=== PATIENT | male | born 1955 | race Caucasian/White ===

== ENCOUNTER 2016-08-26 05:21 | Emergency (ER) | payer MEDICAID, OTHER ==
[2016-08-26] MEDS ORDERED: NS 0.9% 1000 ML* 1,000 ML IV ONE (05:45)
[2016-08-26 06:19] LABS: Hematocrit 46 % (42-52); Hemoglobin 15.7 g/dl (14.0-18.0); Mean Corpuscular HGB Conc 34 g/dl (31-36); Mean Corpuscular Hemoglobin 32 pg (27-31); Mean Corpuscular Volume 94 fL (80-94); Mean Platelet Volume 8 um3 (7.4-10.4); Red Blood Count 4.93 10^6/ul (4.0-5.4); Red Cell Distribution Width 14 % (10.5-15); White Blood Count 8.8 10^3/ul (3.5-10.8)
[2016-08-26 06:21] LABS: Urine Bilirubin Negative (Negative); Urine Glucose Negative (Negative); Urine Nitrite Negative (Negative)
[2016-08-26 06:35] LABS: Albumin 3.9 g/dL (3.2-5.2); BUN/Creatinine Ratio 16.8 (8-20); Calcium 9.5 mg/dL (8.6-10.3); EGFR African American 75.8 (>60); EGFR Non-African American 58.9 (>60); Globulin 2.9 g/dL (2-4); Potassium 4.2 mmol/L (3.5-5.0); Total Bilirubin 0.5 mg/dL (0.2-1.0); Total Protein 6.8 g/dL (6.4-8.9)
[2016-08-26 06:36] LABS: Troponin I 0.01 ng/mL (<0.04)
--- NOTE | 2016-08-26 07:38 | ED ---
Antolin Becerril SooYoung, scribed for Colton Anne on 08/26/16 at 0536 . GI/ HPI - HPI Summary HPI Summary: A 60 y/o M presents to ED with c/o acute on chronic hernia for the past year, with worsening pain. Associated sx: diaphoresis. He states having baseline SOB and CP due to GERD. He was unable to stand up earlire today because the pain was so bad. Passing gas alleviates some of the pain. He says his last stress test was approx 10 years ago. Pt is a smoker, no EtOH. - History of Current Complaint Chief Complaint: EDGeneral Stated Complaint: HERNIA ON LT SIDE Hx Obtained From: Patient Onset/Duration: Still Present Timing: Constant Current Severity: Mild Pain Intensity: 2 - out of 10 Associated Signs and Symptoms: Positive: Diaphoresis, Other: - neg: SOB. Negative: Chest Pain - Allergy/Home Medications Allergies/Adverse Reactions: Allergies Allergy/AdvReac Type Severity Reaction Status Date / Time No Known Allergies Allergy Verified 10/17/14 10:21 PMH/Surg Hx/FS Hx/Imm Hx Previously Healthy: No Endocrine/Hematology History: Reports: Hx Thyroid Disease - HYPOTHYROIDISM Denies: Hx Diabetes Cardiovascular History: Denies: Hx Angina, Hx Coronary Artery Disease, Hx Hypercholesterolemia, Hx Hypertension, Hx Myocardial Infarction, Hx Valvular Heart Disease Respiratory History: Reports: Hx Chronic Obstructive Pulmonary Disease (COPD), Hx Sleep Apnea - NO MACHINES, Other Respiratory Problems/Disorders - COPD Denies: Hx Asthma GI History: Reports: Hx Gastroesophageal Reflux Disease - ACID REFLUX TAKES ROLAIDS AND TUMS, STATES CANNOT AFFORD PRESCRIPTION MEDS, Hx Hiatal Hernia - REPAIR, Hx Ulcer - esophageal ulcers Musculoskeletal History: Reports: Hx Arthritis - BACK,KNEES, Other Musculoskeletal History - DJD Sensory History: Reports: Hx Contacts or Glasses - GLASSES Denies: Hx Hearing Aid Opthamlomology History: Reports: Hx Contacts or Glasses - GLASSES Neurological History: Reports: Other Neuro Impairments/Disorders - PTSD Psychiatric History: Reports: Hx Anxiety - ON MEDS, Hx Depression - ON MEDS, Hx Post Traumatic Stress Disorder - Surgical History Surgery Procedure, Year, and Place: CLEFT PALATE REPAIR AND TRACHEOSTOMY, ( [facility]). 2009 RIGHT ARM TENDON REPAIR, [facility]. ORIF BROKEN WRIST AND FOUR FINGERS, (8TH GRADE). 2007 LAPAROSCOPIC TO FUNDOPLICATION - ESOPHAGEAL ULCER AND HIATAL HERNIA, [facility]. 2010 RIGHT KNEE ARTHROSCOPIC SURGERY, [facility] Hx Anesthesia Reactions: No Infectious Disease History: No Infectious Disease History: Denies: Hx Hepatitis, Hx Human Immunodeficiency Virus (HIV), Traveled Outside the [place] in Last 30 Days - Family History Known Family History: Negative: Cardiac Disease - Social History Occupation: Unemployed Lives: With Family Alcohol Use: None Substance Use Type: Reports: None Hx Tobacco Use: Yes Smoking Status (MU): Heavy Every Day Tobacco Smoker Type: Cigarettes Amount Used/How Often: 1/2 ppd Length of Time of Smoking/Using Tobacco: 45 YRS Have You Smoked in the Last Year: Yes Review of Systems Positive: Skin Diaphoresis Negative: Chest Pain Negative: Shortness Of Breath Positive: other - hernia pain All Other Systems Reviewed And Are Negative: Yes Physical Exam Triage Information Reviewed: Yes Vital Signs On Initial Exam: Initial Vitals Temp Pulse Resp BP Pulse Ox 97.4 F 80 18 143/71 97 08/26/16 05:24 08/26/16 05:24 08/26/16 05:24 08/26/16 05:24 08/26/16 05:24 Vital Signs Reviewed: Yes Appearance: Positive: Well-Appearing, No Pain Distress Skin: Positive: Warm, Skin Color Reflects Adequate Perfusion, Dry Head/Face: Positive: Normal Head/Face Inspection Eyes: Positive: EOMI, MARC ENT: Positive: Normal ENT inspection Neck: Positive: Supple, Nontender Respiratory/Lung Sounds: Positive: Clear to Auscultation, Breath Sounds Present Cardiovascular: Positive: RRR, Pulses are Symmetrical in both Upper and Lower Extremities Abdomen Description: Positive: Soft, Other: - TENDERNESS IN LLQ Bowel Sounds: Positive: Present Male Genital Exam: Positive: inguinal tenderness - REDUCIBLE INGUINAL HERNIA Musculoskeletal: Positive: Normal, Strength/ROM Intact - 4xFROM Neurological: Positive: Normal, Sensory/Motor Intact, Alert, Oriented to Person Place, Time Diagnostics - Vital Signs Vital Signs Temp Pulse Resp BP Pulse Ox 08/26/16 05:24 97.4 F 80 18 143/71 97 - Laboratory Result Diagrams: 08/26/16 05:45 08/26/16 05:45 Lab Statement: Any lab studies that have been ordered have been reviewed, and results considered in the medical decision making process. - Radiology CXR Xray Interpretation: Positive (See Comments) - COPD Radiology Interpretation Completed By: ED Physician - EKG 1 Cardiac Rate: NL EKG Rhythm: Sinus Rhythm EKG Interpretation: multiple PVCs GIGU Course/Dx - Course Course Of Treatment: MDM: A 60 y/o M presents with worsening pain from chronic inguinal hernia that has been present for approx one year. Pt states having SOB and GERD-related CP as his baseline. Pt is a smoker. EKG is NSR with multiple PVCs. - Diagnoses Provider Diagnoses: Inguinal hernia, Abdominal pain - Physician Notifications Discussed Care Of Patient With: signed out to DR Alvarado to follow ct of a/p. Discharge - Discharge Plan Condition: Stable Disposition: OTHER Discharge Disposition Comment: signed out Dr Alvarado Referrals: Sin Edwards MD [Primary Care Provider] - The documentation as recorded by the Antolin thompson SooYoung accurately reflects the service I personally performed and the decisions made by , Colton Anne.
[2016-08-26] MEDS ORDERED: Iodixanol* (CONTRAST) 320 MG/ML 100 ML SDV IV ONE (07:48)
--- NOTE | 2016-08-26 08:08 | RAD ---
INDICATION: Shortness of breath. COMPARISON: Chest x-ray dated October 17, 2014 TECHNIQUE: PA and lateral views of the chest were obtained. FINDINGS: The heart and mediastinum are normal in size and contour. Similar the previous chest x-ray the lungs appear hyperaerated on the AP view. On the lateral chest x-ray the diaphragm are flattened and there is an increased retrosternal airspace. Otherwise the lungs are grossly clear. There is no evidence of large pleural effusion. Visualized bones are normal for the patient's age. There is no radiographic evidence of free air beneath the diaphragm IMPRESSION: AGAIN SEEN IS THE STIGMATA OF CHRONIC OBSTRUCTIVE PULMONARY DISEASE WITHOUT RADIOGRAPHICALLY APPARENT ACUTE CARDIOPULMONARY ABNORMALITY.
--- NOTE | 2016-08-26 08:57 | RAD ---
CLINICAL HISTORY: Left lower quadrant pain, diverticulitis COMPARISON: None TECHNIQUE: Multiple contiguous axial CT scans were obtained of the abdomen and pelvis after the administration of intravenous contrast. Coronal and sagittal multiplanar reformations are submitted for review. Oral contrast was administered. Delayed images were obtained through the abdomen FINDINGS: LUNG BASES: The lung bases are clear. LIVER: The liver is diffusely low in attenuation compared to the spleen. There are no focal hepatic parenchymal masses. BILE DUCTS: There is no intrahepatic or extrahepatic biliary dilatation. GALLBLADDER: The gallbladder is normal, without pericholecystic inflammatory change. PANCREAS: The pancreas is normal, without mass or ductal dilatation. SPLEEN: Normal in size and appearance. UPPER GI TRACT: Evaluation of the gastrointestinal tract is limited by incomplete gastric distention. There is a small sliding hiatal hernia. SMALL BOWEL AND MESENTERY: The small bowel is normal in contour, course, and caliber. There is no obstruction or dilatation. There is nondilated small bowel noted within a left inguinal hernia sac. COLON: The colon is normal in contour, course, caliber. There is no pericolonic inflammatory change. There is large amount of stool within the proximal colon ADRENALS: Normal bilaterally. KIDNEYS: The kidneys are normal in shape, size, contour, and axis. There is no hydronephrosis or nephrolithiasis. BLADDER: There is intraluminal extension of the prostate gland and bladder. PELVIC ORGANS: As noted above, prostate gland is enlarged with intraluminal extension into the bladder. The seminal vesicles are symmetric. AORTA: The aorta is normal. IVC: Unremarkable LYMPH NODES: There is no lymphadenopathy by size criteria. ABDOMINAL WALL: There is a left inguinal hernia containing nondilated loops of small bowel. There is a lipoma of the right inguinal region. BONES AND SOFT TISSUES: There are mild diffuse degenerative changes. OTHER: None IMPRESSION: 1. LEFT INGUINAL HERNIA CONTAINING NONDILATED LOOPS OF SMALL BOWEL. 2. NO APPRECIABLE DIVERTICULOSIS. 3. FATTY INFILTRATION OF THE LIVER. 4. ENLARGED PROSTATE WITH INTRALUMINAL EXTENSION INTO THE BLADDER.
[2016-08-26 10:07] VITALS: BP 103/61
--- NOTE | 2016-08-26 10:14 | ED ---
I, Ruiz Mendoza, scribed for Cait Alvarado MD on 08/26/16 at 0939 . Progress - Progress Note Progress Note: Signout Pt from Dr. Anne. 60yo male c/o abd pain from his hernia. Pt feels much better since reduction of inguinal hernia ct is neg, pt very aware he needs to contact surgery and or return if his symptoms return - Results/Orders Results/Orders: CXR: COPD. No other acute pathology. CT A/P W: IMPRESSION: 1. LEFT INGUINAL HERNIA CONTAINING NONDILATED LOOPS OF SMALL BOWEL. 2. NO APPRECIABLE DIVERTICULOSIS. 3. FATTY INFILTRATION OF THE LIVER. 4. ENLARGED PROSTATE WITH INTRALUMINAL EXTENSION INTO THE BLADDER. Course/Dx - Diagnoses Provider Diagnoses: Inguinal hernia, Abdominal pain The documentation as recorded by the Reji thompson Benjamin accurately reflects the service I personally performed and the decisions made by me, Cait Alvarado MD.
== END 2016-08-26 10:13 | disposition home or self-care (01) ==
LOC: ED 05:21
DX: K40.90 Unilateral inguinal hernia, without obstruction or gangrene, not specified as recurrent (principal); R10.9 Unspecified abdominal pain; K76.0 Fatty (change of) liver, not elsewhere classified; N40.0 Benign prostatic hyperplasia without lower urinary tract symptoms; E03.9 Hypothyroidism, unspecified; J44.9 Chronic obstructive pulmonary disease, unspecified; G47.30 Sleep apnea, unspecified; K21.9 Gastro-esophageal reflux disease without esophagitis; F41.9 Anxiety disorder, unspecified; F32.9 Major depressive disorder, single episode, unspecified; F17.210 Nicotine dependence, cigarettes, uncomplicated
CPT/HCPCS: 36415; 71020; 74177; 80053; 81003; 83605; 83690; 83880; 84484; 85025; 93005; 99283; Q9967

== ENCOUNTER → 2016-10-19 11:45 | Day surgery (SDC) | payer OTHER ==
[~2016-10-19 11:45] MED LIST: Atracurium* 10 MG/ML 10 ML VIAL ONE; Buffered Lidocaine 1% SYRIN* 3 ML/SYR SYRINGE INTRADERM ONE; Bupivacaine 0.5% W/EPI SDV* 30 ML VIAL ONE; Dexamethasone IV* 4 MG/ML 1 ML (4 MG) IV SLOW PU ONE; Dexamethasone IV* 4 MG/ML 1 ML (4 MG) ONE; EPHEDrine (Pressors)* 50 MG/ML VIAL ONE; Famotidine IV* 10 MG/ML 2 ML (20 mg) IV ONE; Famotidine IV* 10 MG/ML 2 ML (20 mg) ONE; Glycopyrrolate IV* 0.2 MG/ML 1 ML VIAL ONE; KETAMINE HCL* 50 MG/ML 10 ML VIAL ONE; Ketorolac INJ* 30 MG/ML 1 ML VIAL ONE; Levalbuterol 0.63MG/3ML NEB INH ONE; Lidocaine 2% PF* 5 ML VIAL ONE; Midazolam* 1 MG/ML 5 ML VIAL (5 MG) ONE; Morphine INJ* 10 MG/ML 1 ML SYRINGE ONE; Morphine INJ* 2 MG/ML 1 ML SYRINGE IV PRN; Neostigmine Methylsulfate* 2 MG/2 ML SYRINGE ONE; Ondansetron INJ* 2 MG/ML VIAL ONE; PROCHLORPERAZINE INJ 5 MG/ML 2 ML VIAL IV PRN; Propofol* 10 MG/ML 20 ML BTL IV PUSH ONE; ceFAZolin 2 GM PREMIX(*) 2 GM/50 ML BAG IVPB ONE; fentaNYL* 50 MCG/ML 2 ML VIAL (100 MCG VIAL) IV PRN; fentaNYL* 50 MCG/ML 2 ML VIAL (100 MCG VIAL) ONE; oxyCODONE/Acetamin 5/325 MG* TAB ONE; oxyCODONE/Acetamin 5/325 MG* TAB PO PRN
[2016-10-19 17:16] VITALS: BP 101/63
--- NOTE | 2016-10-20 10:57 | OP ---
DATE OF OPERATION: 10/19/16 [facility] DATE OF : 55 SURGEON: Amish Rinaldi MD TEST AUTOMATION ARCHITECT: ALEXANDRO Robertson ANESTHESIOLOGIST: Mark López MD ANESTHESIA: General endotracheal. PRE-OP DIAGNOSIS: Left inguinal hernia. POST-OP DIAGNOSIS: Left inguinal hernia. OPERATIVE PROCEDURE: Laparoscopic preperitoneal repair of left inguinal hernia with mesh. ESTIMATED BLOOD LOSS: Less than 10 mL. IV FLUIDS: Crystalloids. SPECIMEN: None. DRAINS: None. COMPLICATIONS: None. COUNTS: Instrument, needle, and sponge counts correct. DESCRIPTION OF PROCEDURE: The patient was brought to the operating room, placed on the table supine. Sequential compression devices were placed on both lower extremities. General anesthesia was administered. Alves catheter was placed. He was prepped and draped in the usual sterile fashion and received appropriate intravenous antibiotics. A time-out was performed. Local anesthetic was infiltrated at the incision sites. A curvilinear infraumbilical incision was created and the anterior rectus fascia was identified to the left of midline. This was incised transversely and the underlying muscle was retracted laterally. Then a preperitoneal balloon dissector was placed down to the pubic symphysis and then insufflated under direct visualization. The balloon dissector was removed and a 12 mm port was advanced into the space, and carbon dioxide was insufflated to a pressure of 10 mmHg. Under direct visualization, two 5 mm trocars were placed in the lower midline. The dissection proceeded from the midline laterally identifying the pubic tubercle and John's ligament and identifying the inferior epigastric vessels and maintaining these in the anterior position. The dissection proceeded down laterally. There was a large indirect inguinal hernia noted with a sac that was reduced using a [id number] technique. Cord structures were identified and preserved. Several rents were made in the peritoneum, which were subsequently closed with the endoscopic clip hadoop consultant. After complete reduction of the hernia, the sac was noted to have another rent in it. This was twisted upon itself and then ligation of this sac was performed with a 2-0 Polysorb Surgitie. The repair was performed with the Bard 3D Max mesh using a large size patch for the left side. This was positioned into the preperitoneal space and it was positioned to cover the direct, indirect and femoral spaces with the tails of the mesh extending all the way out to the anterior superior iliac spine region. The mesh was secured to the pubic tubercle, the John's ligament, to the anterior abdominal musculature and a tack placed laterally to ____ of the redundant peritoneum to make sure that it stayed above the mesh. Subsequently, the carbon dioxide was released from the space and the peritoneum was noted to have carbon dioxide within it. The peritoneum was entered through the infraumbilical incision using an open technique. After placing a 12 mm port, carbon dioxide was insufflated to a pressure of 15 mmHg. Inspection revealed that the mesh was in good position. There was no exposure of the mesh, and no rents in the peritoneum. The carbon dioxide was released. The port was removed. The umbilical site was closed with 0 Polysorb in a [id number] fashion to approximate both the posterior and anterior rectus sheath. Skin incisions were closed with 4-0 Monocryl in a subcuticular fashion. Steri-Strips were applied. The patient tolerated the procedure well, was extubated, and transferred to recovery room in stable condition. CC: Sin Edwards MD* [id number]/[facility] #: [id number] MTDSophia
== END | disposition home or self-care (01) ==
LOC: OR 11:45
PROVIDERS: ATTEND Surgery
DX: K40.90 Unilateral inguinal hernia, without obstruction or gangrene, not specified as recurrent (principal); F43.10 Post-traumatic stress disorder, unspecified; F17.200 Nicotine dependence, unspecified, uncomplicated; E03.9 Hypothyroidism, unspecified
CPT/HCPCS: A9270-GY; C1776; C1781; J0690; J1100; J1885; J2250; J2270; J2405; J2704; J3010

== ENCOUNTER 2017-03-05 19:26 | Emergency (ER) | payer MEDICAID, OTHER ==
--- NOTE | 2017-03-05 20:33 | UC ---
Respiratory Complaint HPI - HPI Summary HPI Summary: 3 DAYS OF PRODUCTIVE COUGH AND CONGESTION. NO FEVER. GETS FITS OF COUGHING AND THEN FEELS LIGHTHEADED. HAS HAD 2-3 EPISODES WHERE HE COUGHED VERY HARD, FELT LIGHTHEADED AND HIS HANDS STARTED SHAKING AND HE COLLAPSED TO THE GROUND FEELING WEAK. NO LOC. IS A HEAVY SMOKER. - History of Current Complaint Chief Complaint: UCRespiratory Stated Complaint: COUGH,SHAKING FITS Time Seen by Provider: 03/05/17 20:25 Hx Obtained From: Patient, Family/Division Sergeant - Onset/Duration: Gradual Onset, Lasting Days, Still Present Severity Initially: Moderate Severity Currently: Moderate Pain Intensity: 0 Pain Scale Used: 0-10 Numeric Character: Cough: Productive Aggravating Factors: Nothing Alleviating Factors: Nothing Associated Signs And Symptoms: Positive: Nasal Congestion. Negative: Fever, Chills, Pleuritic Chest Pain, Wheezing - Allergies/Home Medications Allergies/Adverse Reactions: Allergies Allergy/AdvReac Type Severity Reaction Status Date / Time No Known Allergies Allergy Verified 03/05/17 20:00 PMH/Surg Hx/FS Hx/Imm Hx Endocrine History: Hypothyroidism Respiratory History: COPD - Surgical History Surgical History: Yes Surgery Procedure, Year, and Place: CLEFT PALATE REPAIR AND TRACHEOSTOMY, ( [facility] ). 2009 RIGHT ARM TENDON REPAIR, [facility] [place]. ORIF BROKEN WRIST AND FOUR FINGERS, (8TH GRADE). 2007 LAPAROSCOPIC TO FUNDOPLICATION - ESOPHAGEAL ULCER AND HIATAL HERNIA, [facility]. 2010 RIGHT KNEE ARTHROSCOPIC SURGERY, [facility]. perforated ear drum as child - Family History Known Family History: Negative: Cardiac Disease, Hypertension - Social History Alcohol Use: None Substance Use Type: None Smoking Status (MU): Heavy Every Day Tobacco Smoker Type: Cigarettes Amount Used/How Often: 1/2 ppd Length of Time of Smoking/Using Tobacco: 45 YRS Have You Smoked in the Last Year: Yes Household Exposure Type: Cigarettes - Immunization History Most Recent Influenza Vaccination: has not received Most Recent Tetanus Shot: received in past Most Recent Pneumonia Vaccination: never received Review of Systems Constitutional: Fatigue ENT: Nasal Discharge Respiratory: Cough Cardiovascular: Negative Gastrointestinal: Negative All Other Systems Reviewed And Are Negative: Yes Physical Exam Triage Information Reviewed: Yes Appearance: Well-Appearing, No Pain Distress, Well-Nourished Vital Signs: Initial Vital Signs Temp 96.9 F 03/05/17 19:57 Pulse 66 03/05/17 19:57 Resp 12 08/05/17 19:57 BP 106/77 03/05/17 19:57 Pulse Ox 97 03/05/17 19:57 Vital Signs Reviewed: Yes Eyes: Positive: Conjunctiva Clear ENT: Positive: Hearing grossly normal, Pharynx normal, Other: - CERUMEN IN EACS Neck: Positive: Supple, Nontender, No Lymphadenopathy Respiratory: Positive: No respiratory distress, No accessory muscle use, Decreased breath sounds. Negative: Wheezing Cardiovascular: Positive: Pulses Normal Abdomen Description: Positive: Soft Musculoskeletal: Positive: No Edema Neurological: Positive: Alert Psychological: Positive: Normal Response To Family, Age Appropriate Behavior Skin: Negative: rashes UC Diagnostic Evaluation - Laboratory O2 Sat by Pulse Oximetry: 97 - Radiology Xray Interpretation: No Acute Changes - Stigmata of obstructive lung disease. No acute pulmonary or cardiac process Radiology Interpretation Completed By: Radiologist Respiratory Course/Dx - Differential Dx/Diagnosis Provider Diagnoses: ACUTE BRONCHITIS Discharge - Discharge Plan Condition: Stable Disposition: HOME Prescriptions: Albuterol HFA INHALER* [Ventolin HFA Inhaler*] 2 puff INH Q4H PRN #1 mdi PRN Reason: Shortness Of Breath Azithromycin [Azithromycin 500 MG TAB] 500 mg PO DAILY #4 tab guaiFENesin/CODIEN 100MG-10MG* [Robitussin AC 100Mg-10Mg*] 5 - 10 ml PO Q6H PRN #150 ml MDD 40ml PRN Reason: Cough predniSONE TAB* [Deltasone TAB*] 50 mg PO DAILY #2 tab Patient Education Materials: Acute Bronchitis (ED) Referrals: Sin Edwards MD [Primary Care Provider] - If Needed Additional Instructions: XRAY DOES NOT SHOW ANYTHING ACUTE BUT DOES SHOW CHANGES CONSISTENT WITH COPD. GIVEN THIS UNDERLYING LUNG DISORDER WE WILL COVER YOU WITH ANTIBIOTICS. TAKE FOR THE FULL COURSE. PREDNISONE AND ALBUTEROL WILL HELP OPEN UP YOUR AIRWAYS. COUGH MEDS NEEDED. SEEK FOLLOW-UP WITH YOUR PCP IF YOU ARE NOT IMPROVING EXPECTED. GO TO THE ER WITHOUT FAIL IF YOU DEVELOP RECURRENT SYMPTOMS OF WEAKNESS AND DIZZINESS.
--- NOTE | 2017-03-05 21:05 | RAD ---
INDICATION: Chest pain when coughing. Shortness of breath. COMPARISON: August 26, 2016 CT abdomen and chest radiograph. TECHNIQUE: Dual energy PA and routine lateral views of the chest were obtained. REPORT: Elevated lung volumes and both diffuse mild prominence of the interstitial markings and patchy rarefaction of the mid to upper lung zone interstitial markings. Bilateral nipple shadows noted. No focal pulmonary lesion, compelling alveolar consolidation, pleural effusion, pneumothorax. The heart, pulmonary vasculature, and mediastinal contours are unremarkable. IMPRESSION: Stigmata of obstructive lung disease. No acute pulmonary or cardiac process evident.
[2017-03-05] MEDS ORDERED: predniSONE TAB* 20 MG PO ONE (21:25)
[2017-03-05] MEDS ORDERED: Azithromycin TAB* 250 MG PO ONE (21:25)
[2017-03-05] MEDS ORDERED: Albuterol HFA INHALER* 8 gm MDI INH ONE (21:25)
[2017-03-05 21:30] VITALS: BP 95/66
== END 2017-03-05 21:55 | disposition home or self-care (01) ==
LOC: UCEAST 19:26
DX: J02.9 Acute pharyngitis, unspecified (principal); Z72.0 Tobacco use
CPT/HCPCS: 71020; 99213; A9270-GY; G0463; J7512

== ENCOUNTER 2017-03-30 17:26 | Emergency (ER) | payer MEDICAID ==
--- NOTE | 2017-03-30 22:13 | RAD ---
Indication: Cough. 2 views of the chest demonstrates hyperinflated lung henry. No mediastinal shift is noted. Lung henry demonstrate no pleural fluid, pneumonia or pneumothorax. No changes noted since March 05, 2017. IMPRESSION: Hyperinflated lung henry with no evidence of active cardiopulmonary disease.
[2017-03-30] MEDS ORDERED: guaiFENesin/CODIEN 100MG-10MG* 5 ML UDC PO ONE (22:31)
--- NOTE | 2017-03-30 22:31 | ED ---
Respiratory - HPI Summary HPI Summary: Patient presents with cough x 3 weeks. He was seen at who prescribed robitussin with codeine, azithromax, prednisone and an albuterol inhaler. He states the cough has not improved. He feels as though it has been getting worse. Patient is a heavy smoker for may years. He notes to a history of COPD , but has never been on medications for SOB or obstructive symptoms. Cough began suddenly 3 weeks ago, has remained constant and is described as "fits." He comes in today because he was having a coughing episode with a "fit" and was unable to drive. After the fit, he notes to shaking and tensing up in the bilateral hands. Upon arrival he requests tums. He denies ETOH use. 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 Denies chest pain or pressure, cough is without production, but notes to some yellow nasal discharge. The symptoms did not improve with the abx or steroid. He has an appt with Dr. Edwards next week. - History of Current Complaint Chief Complaint: Clarenceplmarii Stated Complaint: COUGH,SPASMS Time Seen by Provider: 03/30/17 20:13 Hx Obtained From: Patient Onset/Duration: Sudden Onset Timing: Constant Initial Severity: Severe Current Severity: Severe Pain Intensity: 1 Character: Cough (Nonproductive) Sputum Amount: Scant Sputum Color: Yellow Aggravating Factor(s): URI - Risk Factors Status Asthmaticus Risk Factors: Recent Steroids, Smoking Pulmonary Embolism Risk Factors: Smoking Cardiac Risk Factors: Smoking Pseudomonas Risk Factors: Chronic Lung Disease Tuberculosis Risk Factors: Smoking - Allergy/Home Medications Allergies/Adverse Reactions: Allergies Allergy/AdvReac Type Severity Reaction Status Date / Time No Known Allergies Allergy Verified 03/30/17 17:30 PMH/Surg Hx/FS Hx/Imm Hx Previously Healthy: Yes Endocrine/Hematology History: Reports: Hx Thyroid Disease - uses medication Denies: Hx Diabetes Cardiovascular History: Denies: Hx Angina, Hx Coronary Artery Disease, Hx Hypercholesterolemia, Hx Hypertension, Hx Myocardial Infarction, Hx Valvular Heart Disease Respiratory History: Reports: Hx Chronic Obstructive Pulmonary Disease (COPD), Hx Sleep Apnea - NO MACHINES, Other Respiratory Problems/Disorders - COPD Denies: Hx Asthma GI History: Reports: Hx Gastroesophageal Reflux Disease - uses antacid, Hx Hiatal Hernia - repaired 6-7 years ago?, Hx Ulcer - esophageal Musculoskeletal History: Reports: Hx Arthritis - BACK,KNEES, Other Musculoskeletal History - DJD, bone spurs back Sensory History: Reports: Hx Contacts or Glasses - GLASSES Denies: Hx Hearing Aid Opthamlomology History: Reports: Hx Contacts or Glasses - GLASSES Neurological History: Reports: Other Neuro Impairments/Disorders - PTSD Psychiatric History: Reports: Hx Anxiety - ON MEDS, Hx Depression - ON MEDS, Hx Post Traumatic Stress Disorder - Surgical History Surgery Procedure, Year, and Place: CLEFT PALATE REPAIR AND TRACHEOSTOMY, ( [facility] ). 2010 RIGHT ARM TENDON REPAIR, [facility]. ORIF BROKEN WRIST AND FOUR FINGERS, (8TH GRADE). 2008 LAPAROSCOPIC TO FUNDOPLICATION - ESOPHAGEAL ULCER AND HIATAL HERNIA, [facility]. 2010 RIGHT KNEE ARTHROSCOPIC SURGERY, [facility]. perforated ear drum as child Hx Anesthesia Reactions: No - Immunization History Hx Pertussis Vaccination: No Immunizations Up to Date: Unable to Obtain/Confirm Infectious Disease History: No Infectious Disease History: Denies: Hx Hepatitis, Hx Human Immunodeficiency Virus (HIV), Traveled Outside the [place] in Last 30 Days - Family History Known Family History: Negative: Cardiac Disease, Hypertension - Social History Occupation: Employed Full-time Lives: With Family Alcohol Use: None Hx Substance Use: No Substance Use Type: Reports: None Hx Tobacco Use: Yes Smoking Status (MU): Heavy Every Day Tobacco Smoker Type: Cigarettes Amount Used/How Often: 1/2 ppd Length of Time of Smoking/Using Tobacco: 45 YRS Have You Smoked in the Last Year: Yes Review of Systems Constitutional: Negative Negative: Fever, Chills, Fatigue Eyes: Negative ENT: Negative Cardiovascular: Negative Positive: Cough Positive: Other - GERD symptoms Negative: no symptoms reported, see HPI Musculoskeletal: Negative Neurological: Negative Psychological: Normal All Other Systems Reviewed And Are Negative: Yes Physical Exam Triage Information Reviewed: Yes Vital Signs On Initial Exam: Initial Vitals Temp Pulse Resp BP Pulse Ox 98.1 F 105 20 102/74 93 03/30/17 17:30 03/30/17 17:30 03/30/17 17:30 03/30/17 17:30 03/30/17 17:30 Vital Signs Reviewed: Yes Appearance: Positive: Well-Appearing, Well-Nourished Skin: Positive: Warm, Skin Color Reflects Adequate Perfusion Head/Face: Positive: Normal Head/Face Inspection Eyes: Positive: EOMI, MARC, Conjunctiva Clear Neck: Positive: Supple, No Lymphadenopathy Respiratory/Lung Sounds: Positive: Clear to Auscultation, Breath Sounds Present , Other - lung expansion equal, egophony negative. Negative: Decreased Breath Sounds, Rales, Rhonchi, Stridor, Wheezes, Unable to speak in full sentences Cardiovascular: Positive: RRR, Pulses are Symmetrical in both Upper and Lower Extremities Musculoskeletal: Positive: Normal, Strength/ROM Intact Neurological: Positive: Speech Normal Psychiatric: Positive: Normal AVPU Assessment: Alert Diagnostics - Vital Signs Vital Signs Temp Pulse Resp BP Pulse Ox 03/30/17 20:27 98.2 F 90 16 121/99 95 03/30/17 17:30 98.1 F 105 20 102/74 93 - Laboratory Lab Statement: Any lab studies that have been ordered have been reviewed, and results considered in the medical decision making process. Disposition - Course Course Of Treatment: Patient presents with spastic cough x 3 weeks. Xray negative. Patient was given abx, steroids and cough medication withou improvement of symptoms. Lung expansion equal, egophony negative. He requests tums on arrival to ED and when prompted, he states he "lives on them" - but has never had a PPI before. Treatmetn options discussed and it was explained to the patient his cough could be d/t gerd symptoms he has been having for several years. He stateshe has handfuls of the medication daily. We will trial a PPI Omeprazole and follow up with PCP. I have also given him robitussin and steroids to dry to decrease the inflammation and improve upon his symptoms. He is OK for discharge. - Differential Dx - Cardiopulmonary Differential Diagnoses - Cardiopulmonary: Other - GERD, COUGH, COPD - Diagnoses Provider Diagnoses: Cough Discharge - Discharge Plan Condition: Stable Disposition: HOME Prescriptions: Omeprazole 40 mg PO DAILY #30 cap guaiFENesin/CODIEN 100MG-10MG* [Robitussin AC 100Mg-10Mg*] 10 ml PO BEDTIME PRN #120 udc MDD 10 PRN Reason: Cough predniSONE TAB* [Deltasone TAB*] 50 mg PO DAILY #5 tab Patient Education Materials: COPD (Chronic Obstructive Pulmonary Disease) (ED) , Gastroesophageal Reflux Disease (ED) Forms: *Work Release Referrals: Sin Edwards MD [Primary Care Provider] - Additional Instructions: Take the omeprazole medication daily for 30 days Take the robitussin with codeine at bedtime, but you may also take this during the day for severe symptoms Prednisone has been prescribed to you x 5 days.
[2017-03-30 22:43] VITALS: BP 117/83
== END 2017-03-30 22:44 | disposition home or self-care (01) ==
LOC: ED 17:26
DX: R05 Cough (principal); K21.9 Gastro-esophageal reflux disease without esophagitis; F17.210 Nicotine dependence, cigarettes, uncomplicated
CPT/HCPCS: 71020; 99282; A9270-GY

== ENCOUNTER 2018-03-29 17:48 | Emergency (ER) | payer OTHER ==
--- NOTE | 2018-03-29 18:47 | UC ---
Upper Extremity HPI - HPI Summary HPI Summary: 62-year-old male presents with approximately 3 day history of redness, swelling , and tenderness to his left elbow. Associated with some mild increased warmth. Pain is intermittent typically only being present if he touches or bumps the elbow. Patient reports started after picking at some dry skin on his elbow. Denies fever, chills, decreased range of motion, arthralgia, numbness or tingling distally. - History of Current Complaint Chief Complaint: UCUpperExtremity Stated Complaint: ELBOW COMPLAINT Time Seen by Provider: 03/29/18 18:35 Hx Obtained From: Patient Onset/Duration: Gradual Onset Severity Initially: Mild Severity Currently: None Pain Intensity: 0 Location Of Pain: Is Discrete @ - Left elbow Aggravating Factor(s): Other Alleviating Factor(s): Nothing Associated Signs And Symptoms: Positive: Swelling, Redness. Negative: Bruising , Fever, Weakness, Numbness/Tingling Related History: Dominant Hand Right - Palpation - Risk Factors Non-Orthopedic Risk Factor: Negative Septic Arthritis Risk Factor: Negative - Allergies/Home Medications Allergies/Adverse Reactions: Allergies Allergy/AdvReac Type Severity Reaction Status Date / Time No Known Allergies Allergy Verified 03/29/18 18:00 PMH/Surg Hx/FS Hx/Imm Hx Endocrine History: Thyroid Disease Respiratory History: COPD GI/ History: Gastroesophageal Reflux Psychological History: Depression - Surgical History Surgical History: Yes Surgery Procedure, Year, and Place: CLEFT PALATE REPAIR AND TRACHEOSTOMY, ( [facility]). 2009 RIGHT ARM TENDON REPAIR, [facility]. ORIF BROKEN WRIST AND FOUR FINGERS, (8TH GRADE). 2008 LAPAROSCOPIC TO FUNDOPLICATION - ESOPHAGEAL ULCER AND HIATAL HERNIA, [facility]. 2010 RIGHT KNEE ARTHROSCOPIC SURGERY, [facility]. perforated ear drum as child - Family History Known Family History: Positive: Other Family History: Noncontributory - Social History Occupation: Employed Full-time Lives: With Family Alcohol Use: None Substance Use Type: None Smoking Status (MU): Heavy Every Day Tobacco Smoker Type: Cigarettes Amount Used/How Often: 1/2 ppd Length of Time of Smoking/Using Tobacco: 45 YRS Have You Smoked in the Last Year: Yes Household Exposure Type: Cigarettes - Immunization History Most Recent Influenza Vaccination: has not received Most Recent Tetanus Shot: received in past Most Recent Pneumonia Vaccination: never received Review of Systems Constitutional: Negative Skin: Other - See history of present illness. Respiratory: Negative Cardiovascular: Negative Motor: Negative Neurovascular: Negative Musculoskeletal: Other: - See history of present illness. Is Patient Immunocompromised?: No All Other Systems Reviewed And Are Negative: Yes Physical Exam Triage Information Reviewed: Yes Appearance: Well-Appearing, No Pain Distress, Well-Nourished Vital Signs: Initial Vital Signs Temp 98.5 F 03/29/18 17:57 Pulse 104 03/29/18 17:57 Resp 18 03/29/18 17:57 BP 144/115 03/29/18 17:57 Pulse Ox 95 03/29/18 17:57 Vital Signs Reviewed: Yes Respiratory: Positive: Lungs clear, Normal breath sounds, No respiratory distress Cardiovascular: Positive: RRR, No Murmur, Pulses Normal, Brisk Capillary Refill Musculoskeletal: Positive: Strength Intact, ROM Intact, Other: - Tenderness with erythema and increased warmth over the left olecranon bursa. Neurological: Positive: Alert, Other: - Sensation intact distally. Skin: Positive: Other - Superficial 1.2 cm abrasion with crusting left elbow. No induration, fluctuance, or drainage noted. Procedures - Procedure Summary Procedure Summary: Procedure: Aspiration left olecranon bursa. Procedural note: Informed consent was obtained prior to procedure. The appropriate time out was taken. The area was prepped with Betadine. Local anesthesia was achieved using 0.5 mL of lidocaine 1% without epinephrine. The bursa was accessed using a posterolateral approach using a 20 cc syringe and 18- gauge needle. 12 ml of clear yellow fluid with small amount of blood was obtained and sent for cell count, culture and Gram stain, and crystal evaluation. Estimated blood loss was minimal. A compression dressing with gauze and an Billy wrap was applied. Anticipatory guidance as well as standard post procedure care was explained and return precautions given. Patient tolerated the procedure well without complications and verbalizes understanding of instructions. Upper Extremity Course/Dx - Course Course Of Treatment: 62 year old male with a three-day history of left elbow tenderness, swelling, and erythema consistent with olecranon bursitis. He did have superficial abrasion at site that was caused from picking at dry skin which raises a concern for an infectious bursitis. Aspiration of the bursitis was performed and fluid was sent for analysis. CBC was also obtained. Patient was started on clindamycin 300 mg 3 times a day 10 days and started on a nonsteroidal anti-inflammatory. He is to follow-up with his primary care provider in 2 days for recheck. Warning symptoms requiring immediate medical attention were reviewed with the patient. Patient verbalizes understanding and agrees with plan of care. - Differential Dx/Diagnosis Differential Diagnosis/HQI/PQRI: Bursitis, Septic Arthritis, Other - celluitis Provider Diagnoses: left olecranon bursitis, elevated blood pressure reading Discharge - Sign-Out/Discharge Documenting (check all that apply): Patient Departure All imaging exams completed and their final reports reviewed: No Studies - Discharge Plan Condition: Stable Disposition: HOME Prescriptions: Clindamycin HCl 300 mg PO TID #30 capsule Naproxen [Naproxen 500 mg tab] 500 mg PO Q12HR #30 tablet Patient Education Materials: Elbow Bursitis (ED) Referrals: Sin Edwards MD [Primary Care Provider] - 2 Days (For recheck.) Additional Instructions: With your wound on your elbow I have a concern that your bursitis may be caused by an infection. I am sending the fluid that we drained from the bursa for testing. Start taking clindamycin 300 mg 1 tab every 8 hours for 10 days. Be sure to take this with some food to avoid upset stomach. Take naproxen 1 tablet every 12 hours for the next 7 days. After 7 days you may take every 12 hours as needed. Be sure to take this with food. Keep a gauze dressing over the wound on your elbow. And keep the elbow wrapped with an Billy wrap to help prevent the bursa from swelling again. You tetanus was updated today. Be sure to let your primary care provider know so that your records can be updated Approach to follow-up with your primary care provider in 2 days to be rechecked. Your blood pressure was also elevated on your arrival however it had improved before you are discharged. I would still recommend that you follow-up with your primary care provider to have this rechecked. Seek immediate medical attention in the emergency room if you have increasing pain, swelling of the elbow joint itself, you are unable to move her elbow, numbness or tingling in her hands or fingers, or running any fever greater than 100.5 F. - Billing Disposition and Condition Condition: STABLE Disposition: Home
[2018-03-29] MEDS ORDERED: Lidocaine 1% MPF* 2 ML VIAL INJ ONE (19:08)
[2018-03-29] MEDS ORDERED: Lidocaine 1%* 5 ML VIAL ONE (19:32)
[2018-03-29] MEDS ORDERED: Lidocaine 1%* 5 ML VIAL INJ ONE (19:51)
[2018-03-29] MEDS ORDERED: Tetan/Diph/Pertus SYR(Tdap)* 0.5 ML SYR(BOOSTRIX) use SYR IM ONE (20:03)
[2018-03-29 20:20] VITALS: BP 102/73
[2018-03-30 11:04] LABS: ABS Basophils 0.1 10^3/ul (0-0.2); ABS Eosinophils 0.1 10^3/ul (0-0.6); ABS Monocytes 1.1 10^3/ul (0-0.8); ABS Neutrophils 6.2 10^3/ul (1.5-7.7); ABS Nucleated RBC 0 10^3/ul; Eosinophil % 0.6 % (0-6); Hematocrit 45 % (42-52); Hemoglobin 15.4 g/dl (14.0-18.0); Lymphocyte % 21.5 % (25-47); Mean Corpuscular HGB Conc 34 g/dl (31-36); Mean Corpuscular Hemoglobin 32 pg (27-31); Mean Corpuscular Volume 94 fL (80-94); Mean Platelet Volume 8.6 um3 (7.4-10.4); Nucleated Red Blood Cells % 0.1; Platelet Count 245 10^3/ul (150-450); Red Blood Count 4.81 10^6/ul (4.00-5.40); Red Cell Distribution Width 14 % (10.5-15); White Blood Count 9.4 10^3/ul (3.5-10.8)
--- NOTE | 2018-04-01 13:02 | UC ---
- Progress Note Progress Note: Joint fluid: beverly enciso Patient on clindamycin. CALL PATIENT TO CHECK ON CONDITION. IF ANY TEMP OR INCREASED PAIN OR REDNESS, NEEDS TO GO TO ED. OTHERWISE, WATCH CLOSELY AND CONTINUE ANTIBIOTIC. RE CHECK FOR FULL RESOLUTION NEXT WEEK. CALL US FOR ANY QUESTIONS OR CONCERNS. Discharge - Sign-Out/Discharge Documenting (check all that apply): Post-Discharge Follow Up All imaging exams completed and their final reports reviewed: No Studies - Discharge Plan Condition: Stable Disposition: HOME Prescriptions: Clindamycin HCl 300 mg PO TID #30 capsule Naproxen [Naproxen 500 mg tab] 500 mg PO Q12HR #30 tablet Patient Education Materials: Elbow Bursitis (ED) Referrals: Sin Edwards MD [Primary Care Provider] - 2 Days (For recheck.) Additional Instructions: With your wound on your elbow I have a concern that your bursitis may be caused by an infection. I am sending the fluid that we drained from the bursa for testing. Start taking clindamycin 300 mg 1 tab every 8 hours for 10 days. Be sure to take this with some food to avoid upset stomach. Take naproxen 1 tablet every 12 hours for the next 7 days. After 7 days you may take every 12 hours as needed. Be sure to take this with food. Keep a gauze dressing over the wound on your elbow. And keep the elbow wrapped with an Billy wrap to help prevent the bursa from swelling again. You tetanus was updated today. Be sure to let your primary care provider know so that your records can be updated Approach to follow-up with your primary care provider in 2 days to be rechecked. Your blood pressure was also elevated on your arrival however it had improved before you are discharged. I would still recommend that you follow-up with your primary care provider to have this rechecked. Seek immediate medical attention in the emergency room if you have increasing pain, swelling of the elbow joint itself, you are unable to move her elbow, numbness or tingling in her hands or fingers, or running any fever greater than 100.5 F. - Billing Disposition and Condition Condition: STABLE Disposition: Home
== END 2018-03-29 20:16 | disposition home or self-care (01) ==
LOC: UCEAST 17:48
DX: M70.22 Olecranon bursitis, left elbow (principal); Y93.9 Activity, unspecified; R03.0 Elevated blood-pressure reading, without diagnosis of hypertension; F17.210 Nicotine dependence, cigarettes, uncomplicated
CPT/HCPCS: 20605; 36415; 85025; 87070; 87077; 87186; 87205; 87640; 87641; 89051; 89060; 90471; 90715; 99212; G0463

== ENCOUNTER 2018-09-08 14:55 | Inpatient (IN) | payer OTHER ==
[2018-09-08] MEDS ORDERED: Famotidine IV* 10 MG/ML 2 ML (20 mg) ONE ×2 (15:08)
[2018-09-08] MEDS ORDERED: EPINEPHRINE 1 MG/ML 1 ML VIAL ONE (15:08)
[2018-09-08] MEDS ORDERED: methylPREDNISolone 125 MG* 2 ML VIAL ONE (15:08)
[2018-09-08] MEDS ORDERED: diPHENhydraMINE IV* 50 MG/ML 1 ml VIAL (BENADRYL) ONE (15:08)
[2018-09-08] MEDS ORDERED: NS 0.9% 1000 ML** 1,000 ML IV.FLUID IV ONE (15:12)
[2018-09-08] MEDS ORDERED: Clindamycin 600 MG/D5W BAG(*) 600 MG/50 ML BAG IV ONE (15:17)
--- NOTE | 2018-09-08 15:18 | ED ---
Allergic Reaction/Systemic - HPI Summary HPI Summary: A 63 y/o male accompanied by his presents to [facility] with a chief complaint of a possible allergic reaction since 14:30. The patient is complaining of throat tightness. The patient reports that his eyebrows and feet itch. He does not take BP medication but he takes thyroid medication. He denies being on new medication. He denies fever, chills, erythema (eyes), sore throat, chest pain, cough, abdominal pain, vomiting, nausea, dysuria, hematuria, myalgia, edema, rash and dizziness. His O2 Sat in the room is 92. He reports that he had a tracheostomy done when he was 9 months old. - History of Current Complaint Chief Complaint: EDAllergicReaction Time Seen by Provider: 09/08/18 15:00 Hx Obtained From: Patient, Family/Jet Operator - Onset/Duration: Sudden Onset, Started minutes ago, Still Present Timing: Constant, Lasting Minutes Severity Initially: Severe Severity Currently: Severe Aggravating Factor(s): Nothing Alleviating Factor(s): Nothing Associated Signs And Symptoms: Positive: Throat Tightening. Negative: Abdominal Pain, Chest Pain, Nausea, Vomiting - Allergies/Home Medications Allergies/Adverse Reactions: Allergies Allergy/AdvReac Type Severity Reaction Status Date / Time No Known Allergies Allergy Verified 03/29/18 18:00 Home Medications: Home Medications Calcium Carb/Magnesium Hydrox [Rolaids Chewable Tablet] 1 chw PO TID PRN [History Confirmed 09/08/18] Ibuprofen TAB* [Advil TAB*] 200 mg PO Q6H PRN 09/08/18 [History Confirmed ] Omeprazole (Nf) [Prilosec (NF)] 40 mg PO DAILY 09/08/18 [History Confirmed 09/08] PARoxetine HCL TAB* [Paxil TAB*] 40 mg PO DAILY 09/08/18 [History Confirmed 03/19] PMH/Surg Hx/FS Hx/Imm Hx Endocrine/Hematology History: Reports: Hx Thyroid Disease - uses medication Denies: Hx Diabetes Cardiovascular History: Denies: Hx Angina, Hx Coronary Artery Disease, Hx Hypercholesterolemia, Hx Hypertension, Hx Myocardial Infarction, Hx Valvular Heart Disease Respiratory History: Reports: Hx Chronic Obstructive Pulmonary Disease (COPD), Hx Sleep Apnea - NO MACHINES, Other Respiratory Problems/Disorders - COPD Denies: Hx Asthma GI History: Reports: Hx Gastroesophageal Reflux Disease - uses antacid, Hx Hiatal Hernia - repaired 6-7 years ago?, Hx Ulcer - esophageal Musculoskeletal History: Reports: Hx Arthritis - BACK,KNEES, Other Musculoskeletal History - DJD, bone spurs back Sensory History: Reports: Hx Contacts or Glasses - GLASSES Denies: Hx Hearing Aid Opthamlomology History: Reports: Hx Contacts or Glasses - GLASSES Neurological History: Reports: Other Neuro Impairments/Disorders - PTSD Psychiatric History: Reports: Hx Anxiety - ON MEDS, Hx Depression - ON MEDS, Hx Post Traumatic Stress Disorder - Surgical History Surgery Procedure, Year, and Place: CLEFT PALATE REPAIR AND TRACHEOSTOMY, ( [facility] ). 2009 RIGHT ARM TENDON REPAIR, [facility]. ORIF BROKEN WRIST AND FOUR FINGERS, (8TH GRADE). 2007 LAPAROSCOPIC TO FUNDOPLICATION - ESOPHAGEAL ULCER AND HIATAL HERNIA, [facility]. 2010 RIGHT KNEE ARTHROSCOPIC SURGERY, [facility]. perforated ear drum as child Hx Anesthesia Reactions: No Infectious Disease History: Denies: Hx Hepatitis, Hx Human Immunodeficiency Virus (HIV) - Family History Known Family History: Negative: Cardiac Disease, Hypertension - Social History Alcohol Use: None Hx Substance Use: No Substance Use Type: Reports: None Hx Tobacco Use: Yes Smoking Status (MU): Heavy Every Day Tobacco Smoker Type: Cigarettes Amount Used/How Often: 1/2 ppd Length of Time of Smoking/Using Tobacco: 45 YRS Have You Smoked in the Last Year: Yes Review of Systems Negative: Fever, Chills Negative: Erythema ENT: Other - positive: throat tightness Negative: Sore Throat Negative: Chest Pain Positive: Shortness Of Breath. Negative: Cough Negative: Abdominal Pain, Vomiting, Nausea Negative: dysuria, hematuria Negative: Myalgia, Edema Negative: Rash Neurological: Negative - dizziness All Other Systems Reviewed And Are Negative: Yes Physical Exam - Summary Physical Exam Summary: Constitutional: Well-developed, Well-nourished, Alert. (-) Distressed Skin: Warm, Dry HENT: Normocephalic; Atraumatic, Sublingual Edema, consider Teo's angina Eyes: Conjunctiva normal Neck: Musculoskeletal ROM normal neck. (-) JVD, (-) Stridor, (-) Tracheal deviation Cardio: Rhythm regular, rate normal, Heart sounds normal; Intact distal pulses; The pedal pulses are 2+ and symmetric. Radial pulses are 2+ and symmetric. (-) Murmur Pulmonary/Chest wall: Effort normal. (-) Respiratory distress, (-) Wheezes, (-) Rales Abd: Soft, (-) epigastric tenderness, (-) Distension, (-) Guarding, (-) Rebound Musculoskeletal: (-) Edema Lymph: (-) Cervical adenopathy Neuro: Alert, Oriented x3 Psych: Mood and affect Normal Triage Information Reviewed: Yes Vital Signs Reviewed: Yes Diagnostics - Laboratory Result Diagrams: 09/10/18 06:06 09/10/18 06:06 Lab Statement: Any lab studies that have been ordered have been reviewed, and results considered in the medical decision making process. - Radiology CXR Radiology Interpretation Completed By: Radiologist Summary of Radiographic Findings: HYPERINFLATED LUNG BREWER WITHOUT EVIDENCE OF PNEUMONIA. ED physician has reviewed this imaging report. Re-Evaluation - Re-Evaluation First Eval Re-Evaluation Time: 16:33 Change: Improved Comment: voice more clear, no Stridor, he feels like he has improved Allergic Reaction Course/Dx - Course Course Of Treatment: A 63 y/o male accompanied by his presents to [facility] with a chief complaint of a possible allergic reaction since 14:30. The patient is complaining of throat tightness. The patient reports that his eyebrows and feet itch. He does not take BP medication but he takes thyroid medication. He denies being on new medication. He denies fever, chills, erythema (eyes), sore throat, chest pain, cough, abdominal pain, vomiting, nausea, dysuria, hematuria , myalgia, edema, rash and dizziness. His O2 Sat in the room is 92. He reports that he had a tracheostomy done when he was 9 months old. The physical exam revealed Sublingual Edema, consider Teo's angina. Discussed case with Dr. Cerda, general labor forklift operator, who will accept the patient for admission to the ICU. We discussed preemptive intubation vs. close airway monitoring in the ICU. I did relay concerns for CT imaging if the airway was not secured. He also understands the possibility of Ludwigs angina. I informed him that I will consult with the ENT on this patient. Discussed case with Dr. Arensa, ENT, who will evaluate the patient. In the ED course the patient was given Cleocin 600mg IV, Pepcid 20mg IV, Solu-Medrol 40mg IV and Benadryl 25 mg IV. CXR impression: HYPERINFLATED LUNG BREWER WITHOUT EVIDENCE OF PNEUMONIA. Lab results obtained. Lactic acid at 16:11 was 3.0. This patient will be admitted to the ICU. He is agreeable with this plan. - Diagnoses Provider Diagnoses: Angioedema - Provider Notifications Discussed Care Of Patient With: Keith Prashant Time Discussed With Above Provider: 15:12 Instructed by Provider To: MD Will See In ED - We discussed preemptive intubation vs. close airway monitoring in the ICU. I did relay concerns for CT imaging if the airway was not secured. He also understands the possibility of Ludwigs angina. I informed him that I will consult with the ENT on this patient. - Critical Care Time Critical Care Time: 30-74 min - 60 mins Discharge - Sign-Out/Discharge Documenting (check all that apply): Patient Departure - admit Patient Received Moderate/Deep Sedation with Procedure: No - Discharge Plan Condition: Good Disposition: ADMITTED TO [facility] - Billing Disposition and Condition Condition: GOOD Disposition: Admitted to [facility] - Attestation Statements Document Initiated by Scribe: Yes Documenting Scribe: Arron Waldron Provider For Whom Scribe is Documenting (Include Credential): Hermes Peoples MD Scribe Attestation: I, Arron Waldron, scribed for Hermes Peoples MD on 09/11/18 at 0741. Scribe Documentation Reviewed: Yes Provider Attestation: The documentation as recorded by the Arron thompson accurately reflects the service I personally performed and the decisions made by me, Hermes Peoples MD Status of Scribe Document: Viewed Consult Consult: At 13:50 - Discussed case with Dr. Arenas, ENT, who will evaluate the patient.
[2018-09-08] MEDS ORDERED: NS 0.9% 1000 ML** 1,000 ML IV ONE (15:30)
[2018-09-08] MEDS ORDERED: diPHENhydraMINE IV* 50 MG/ML 1 ml VIAL (BENADRYL) SLOW PUSH PRN (15:51)
--- NOTE | 2018-09-08 16:09 | HP ---
H&P (Free Text) History and Physical: History and Physical -- Critical Care Limitations in history/physical: none HPI: 63y M w/pmhx of GERD, PTSD, hypothyroidism; presents to ER after some itching in throat this morning. Then he noted tongue swelling 1 hours prior to ER arrival. brought him in . No fever/chills. no new medications. no antihypertensives. no bites/wounds. no new food taken in. no prior history of swelling. no infection in mouth or teeth recently. He states he can swallow, has no trouble breathing. no sob/cp. states some change in voice noted+. in ER, given SQ epi, IV steroids, IV pepcid, clindamycin x1; for 4 FFP now ROS: negative except for pertinent positives mentioned above. 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; + Allergies: Allergies Allergy/AdvReac Type Severity Reaction Status Date / Time No Known Allergies Allergy Verified 03/29/18 18:00 Home Medications: Levothyroxine TAB* [Synthroid 125 MCG TAB*] 250 mcg PO QAM 10/17/14 [History Confirmed 09/08/18] Calcium Carb/Magnesium Hydrox [Rolaids 550-110 mg] 1 chw PO TID PRN 09/08/18 [ History Confirmed 09/08/18] Ibuprofen TAB* [Advil TAB*] 200 mg PO Q6H PRN 09/08/18 [History Confirmed ] Omeprazole (Nf) [Prilosec (NF)] 40 mg PO DAILY 09/08/18 [History Confirmed 09/08] PARoxetine HCL TAB* [Paxil TAB*] 40 mg PO DAILY 09/08/18 [History Confirmed 03/19] Tele: NSR Vitals: Vital Signs Temp 98.6 F 09/08/18 15:36 Pulse 82 09/08/18 15:36 Resp 26 09/08/18 15:36 BP 121/78 09/08/18 15:36 Pulse Ox 90 09/08/18 15:36 Intake & Output 02/07/19 02/08/19 02/08/19 18:59 06:59 18:59 Weight 90.718 kg O2/Vent: RA Infusions: heplock Current Medications: Diphenhydramine HCl (Benadryl Iv*) 25 mg SLOW PUSH Q6H PRN PRN Reason: ITCHING Famotidine (Pepcid Iv*) 20 mg IV SLOW PU BID SYBIL Methylprednisolone Sodium Succinate (Solu-Medrol 40 Mg) 40 mg IV Q8H SYBIL Physical Exam: General: awake, alert, no distress, no diaphoresis Head: normocephalic, atraumatic HEENT: no pallor, no icterus, moist mucous membranes; poor dentition+ Neck: soft, supple, some mild swelling under the jaw/nontender; no stridor; tongue and sublingual area mildly swollen+ CVS: normal rate, regular, no murmur Resp: bilateral air entry, no rhales/wheeze/rhonchi, no acc muscle use Abdomen: soft, nontender, nondistended, bowel sounds present Ext: pulses+, warm, no edema Skin: intact Neuro: awake, alert, orientedx3, moving all extremities, no gross focal deficit Labs: pending Imaging: - Assessment: 63y M w/pmhx of GERD, PTSD, hypothyroidism; presents to ER after some itching in throat this morning. Then he noted tongue swelling 1 hours prior to ER arrival. brought him in . No fever/chills. no new medications. no antihypertensives. no bites/wounds. no new food taken in. no prior history of swelling. no infection in mouth or teeth recently. He states he can swallow , has no trouble breathing. no sob/cp. states some change in voice noted+. -Suspected Angioedema, unclear etiology -r/o ludwigs Hypothyroidism PTSD Plan: Neuro- stable, delirium prec. asp prec. restart paroxetine was able to take po. CVS- BP stable. HR stable. Resp- tongue and sublingual area swollen. no resp distress, minimal voice change. dsicussed with ER, ENT consult for evaluation of post pharynx. Nontoxic so not clearly septic or infection based swelling. -cont steroids/h2b/benadryl IV -discussed with patinet about possible intubation if worsening distress, he understood -airway monitoring in ICU ID- afebrile. low suspicion for infection. ENT eval. s/p clindamycin x1 now GI- NPO. H2b proph cont synthroid once able to swollow. DVT prophylaxis: SCDs GI prophylaxis: h2b Alves Cathetor: no Disposition: ADmit to ICU for Airway monitoring for angioedema Patient Clinical Status: guarded Code Status: full code expected LOS >2 midnights Total Critical Care time is 35 minutes, excluding procedures/teaching Keith Cerda MD Insect Control Inspector (Electronically Signed)
[2018-09-08 16:19] LABS: ABS Basophils 0 10^3/ul (0-0.2); ABS Eosinophils 0.1 10^3/ul (0-0.6); ABS Lymphocytes 3.2 10^3/ul (1.0-4.8); ABS Monocytes 0.8 10^3/ul (0-0.8); ABS Neutrophils 6.3 10^3/ul (1.5-7.7); ABS Nucleated RBC 0 10^3/ul; Eosinophil % 0.5 %; Hematocrit 49 % (42-52); Hemoglobin 16.3 g/dl (14.0-18.0); Lymphocyte % 30.5 %; Mean Corpuscular HGB Conc 34 g/dl (31-36); Mean Corpuscular Hemoglobin 32 pg (27-31); Mean Corpuscular Volume 94 fL (80-94); Nucleated Red Blood Cells % 0; Platelet Count 308 10^3/ul (150-450); Red Blood Count 5.19 10^6/ul (4.00-5.40); Red Cell Distribution Width 14 % (10.5-15); White Blood Count 10.5 10^3/ul (3.5-10.8)
[2018-09-08 16:31] LABS: Activated Partial Thrombo Time 32.2 seconds (26.0-36.3)
[2018-09-08] MEDS: methylPREDNISolone SOD 40 MG* 1 ML VIAL IV SCH (16:31)
[2018-09-08 16:36] LABS: Albumin 4.1 g/dL (3.2-5.2); Albumin/Globulin Ratio 1.5 (1-3); BUN/Creatinine Ratio 18.2 (8-20); Calcium 9.2 mg/dL (8.6-10.3); EGFR African American 92.4 (>60); EGFR Non-African American 76.3 (>60); Globulin 2.8 g/dL (2-4); Potassium 3.6 mmol/L (3.5-5.0); Total Bilirubin 0.5 mg/dL (0.2-1.0); Total Protein 6.9 g/dL (6.4-8.9)
[2018-09-08 17:18] LABS: Urine Appearance Cloudy; Urine Bacteria 1+ (Absent); Urine Bilirubin Negative (Negative); Urine Blood 1+ (Negative); Urine Color Yellow; Urine Glucose Negative (Negative); Urine Ketones Negative (Negative); Urine Nitrite Negative (Negative); Urine Protein Negative (Negative); Urine Red Blood Cell 1+(3-5/hpf) (Absent); Urine Specific Gravity 1.006 (1.010-1.030); Urine Squamous Epithelial Cell Present (Absent); Urine Urobilinogen Negative (Negative); Urine White Blood Cell 3+(>20/hpf) (Absent)
[2018-09-08] MEDS: Famotidine IV* 10 MG/ML 2 ML (20 mg) IV SLOW PU SCH (20:31)
[2018-09-08] MEDS: NS 0.9% 1000 ML** 1,000 ML IV SCH (20:39)
[2018-09-08] MEDS: Clindamycin 600 MG/D5W BAG(*) 600 MG/50 ML BAG IV SCH (23:10)
[2018-09-09] MEDS: methylPREDNISolone SOD 40 MG* 1 ML VIAL IV SCH ×3 (00:17→19:44)
[2018-09-09] MEDS: NS 0.9% 1000 ML** 1,000 ML IV SCH (05:59)
[2018-09-09 06:13] LABS: Hematocrit 44 % (42-52); Hemoglobin 15.1 g/dl (14.0-18.0); Mean Corpuscular HGB Conc 34 g/dl (31-36); Mean Corpuscular Hemoglobin 32 pg (27-31); Mean Corpuscular Volume 92 fL (80-94); Mean Platelet Volume 8.2 fL (7.4-10.4); Platelet Count 250 10^3/ul (150-450); Red Blood Count 4.76 10^6/ul (4.00-5.40); Red Cell Distribution Width 14 % (10.5-15); White Blood Count 8.1 10^3/ul (3.5-10.8)
[2018-09-09 06:20] LABS: BUN/Creatinine Ratio 25.9 (8-20); Calcium 8.6 mg/dL (8.6-10.3); EGFR African American 110.2 (>60); Potassium 4.5 mmol/L (3.5-5.0)
[2018-09-09] MEDS: Clindamycin 600 MG/D5W BAG(*) 600 MG/50 ML BAG IV SCH ×3 (07:43→23:26)
[2018-09-09] MEDS: Famotidine IV* 10 MG/ML 2 ML (20 mg) IV SLOW PU SCH (10:28)
[2018-09-09] MEDS ORDERED: diPHENhydraMINE PO* 25 MG PO PRN (10:39)
--- NOTE | 2018-09-09 10:49 | PN ---
Progress Note - Progress Note Date of Service: 09/09/18 Note: Progress Note -- Critical Care 24 hour events: -no events overnight -on RA, no distress, speech improved, no muffling, hungry, no difficulty swallowing -afebrile Tele: NSR Vitals: Vital Signs Temp 97.5 F 09/09/18 08:00 Pulse 83 09/09/18 10:01 Resp 17 09/09/18 10:01 BP 96/70 09/09/18 10:01 Pulse Ox 94 09/09/18 10:01 Intake & Output 09/08/18 09/09/18 09/09/18 18:59 06:59 18:59 Intake Total 1050 1030 50 Balance 1050 1030 50 Weight 95.2 kg 94.7 kg Intake: IV Fluids 1050 980 NS (0.9%) 980 IVPB 50 ABX - CLINDAMYCIN 50 Oral 0 50 Other: Estimated Void Medium Medium # Voids 1 2 Infusions: NS 100cc/hr Current Medications: Diphenhydramine HCl (Benadryl Po*) 25 mg PO Q12H PRN PRN Reason: Allergy Symptoms Famotidine (Pepcid Tab*) 20 mg PO BID REPLACED BY [facility] Clindamycin HCl/Dextrose (Cleocin 600 Mg/50 Ml(*)) 600 mg in 50 mls @ 100 mls/ hr IV Q8H REPLACED BY [facility] Last Admin: 09/09/18 07:43 Dose: 100 mls/hr Methylprednisolone Sodium Succinate (Solu-Medrol 40 Mg) 40 mg IV Q12H REPLACED BY [facility] Physical Exam: General: awake, alert, no distress, no diaphoresis Head: normocephalic, atraumatic HEENT: no pallor, no icterus, moist mucous membranes; poor dentition+ Neck: soft, supple, tongue swelling improved, no sublingual swelling noted, able to see uvula and posterior pharynx now, no stridor, submand swelling better CVS: normal rate, regular, no murmur Resp: bilateral air entry, no rhales/wheeze/rhonchi, no acc muscle use Abdomen: soft, nontender, nondistended, bowel sounds present Ext: pulses+, warm, no edema Skin: intact Neuro: awake, alert, orientedx3, moving all extremities Labs: Laboratory Results - last 24 hr 09/08/18 09/08/18 09/08/18 16:11 16:11 16:11 WBC 10.5 RBC 5.19 Hgb 16.3 Hct 49 MCV 94 MCH 32 H MCHC 34 RDW 14 Plt Count 308 MPV 8.0 Neut % (Auto) 60.4 Lymph % (Auto) 30.5 [place] % (Auto) 8.1 Eos % (Auto) 0.5 Baso % (Auto) 0.5 Absolute Neuts (auto) 6.3 Absolute Lymphs (auto) 3.2 Absolute Monos (auto) 0.8 Absolute Eos (auto) 0.1 Absolute Basos (auto) 0 Absolute Nucleated RBC 0 Nucleated RBC % 0 INR (Anticoag Therapy) 1.00 APTT 32.2 Sodium 142 Potassium 3.6 Chloride 105 Carbon Dioxide 28 Anion Gap 9 BUN 18 Creatinine 0.99 Est GFR ( Amer) 92.4 Est GFR (Non-Af Amer) 76.3 BUN/Creatinine Ratio 18.2 Glucose 123 H Lactic Acid Calcium 9.2 Total Bilirubin 0.50 AST 12 L ALT 7 Alkaline Phosphatase 86 Troponin I 0.00 Total Protein 6.9 Albumin 4.1 Globulin 2.8 Albumin/Globulin Ratio 1.5 Urine Color Urine Appearance Urine pH Ur Specific [place] Urine Protein Urine Ketones Urine Blood Urine Nitrate Urine Bilirubin Urine Urobilinogen Ur Leukocyte Esterase Urine WBC (Auto) Urine RBC (Auto) Ur Squamous Epith Cells Urine Bacteria Urine Glucose Blood Type Antibody Screen 09/08/18 09/08/18 09/08/18 16:11 16:11 17:00 WBC RBC Hgb Hct MCV MCH MCHC RDW Plt Count MPV Neut % (Auto) Lymph % (Auto) [place] % (Auto) Eos % (Auto) Baso % (Auto) Absolute Neuts (auto) Absolute Lymphs (auto) Absolute Monos (auto) Absolute Eos (auto) Absolute Basos (auto) Absolute Nucleated RBC Nucleated RBC % INR (Anticoag Therapy) APTT Sodium Potassium Chloride Carbon Dioxide Anion Gap BUN Creatinine Est GFR ( Amer) Est GFR (Non-Af Amer) BUN/Creatinine Ratio Glucose Lactic Acid 3.0 H* Calcium Total Bilirubin AST ALT Alkaline Phosphatase Troponin I Total Protein Albumin Globulin Albumin/Globulin Ratio Urine Color Yellow Urine Appearance Cloudy Urine pH 6.0 Ur Specific [place] 1.006 L Urine Protein Negative Urine Ketones Negative Urine Blood 1+ A Urine Nitrate Negative Urine Bilirubin Negative Urine Urobilinogen Negative Ur Leukocyte Esterase 3+ A Urine WBC (Auto) 3+(>20/hpf) A Urine RBC (Auto) 1+(3-5/hpf) A Ur Squamous Epith Cells Present A Urine Bacteria 1+ A Urine Glucose Negative Blood Type O Positive Antibody Screen Negative 09/08/18 09/09/18 09/09/18 19:50 00:50 05:46 WBC RBC Hgb Hct MCV MCH MCHC RDW Plt Count MPV Neut % (Auto) Lymph % (Auto) [place] % (Auto) Eos % (Auto) Baso % (Auto) Absolute Neuts (auto) Absolute Lymphs (auto) Absolute Monos (auto) Absolute Eos (auto) Absolute Basos (auto) Absolute Nucleated RBC Nucleated RBC % INR (Anticoag Therapy) APTT Sodium 139 Potassium 4.5 Chloride 110 Carbon Dioxide 23 Anion Gap 6 BUN 22 Creatinine 0.85 Est GFR ( Amer) 110.2 Est GFR (Non-Af Amer) 91.0 BUN/Creatinine Ratio 25.9 H Glucose 147 H Lactic Acid 0.8 0.9 Calcium 8.6 Total Bilirubin AST ALT Alkaline Phosphatase Troponin I Total Protein Albumin Globulin Albumin/Globulin Ratio Urine Color Urine Appearance Urine pH Ur Specific [place] Urine Protein Urine Ketones Urine Blood Urine Nitrate Urine Bilirubin Urine Urobilinogen Ur Leukocyte Esterase Urine WBC (Auto) Urine RBC (Auto) Ur Squamous Epith Cells Urine Bacteria Urine Glucose Blood Type Antibody Screen 09/09/18 05:46 WBC 8.1 RBC 4.76 Hgb 15.1 Hct 44 MCV 92 MCH 32 H MCHC 34 RDW 14 Plt Count 250 MPV 8.2 Neut % (Auto) Lymph % (Auto) [place] % (Auto) Eos % (Auto) Baso % (Auto) Absolute Neuts (auto) Absolute Lymphs (auto) Absolute Monos (auto) Absolute Eos (auto) Absolute Basos (auto) Absolute Nucleated RBC Nucleated RBC % INR (Anticoag Therapy) APTT Sodium Potassium Chloride Carbon Dioxide Anion Gap BUN Creatinine Est GFR ( Amer) Est GFR (Non-Af Amer) BUN/Creatinine Ratio Glucose Lactic Acid Calcium Total Bilirubin AST ALT Alkaline Phosphatase Troponin I Total Protein Albumin Globulin Albumin/Globulin Ratio Urine Color Urine Appearance Urine pH Ur Specific [place] Urine Protein Urine Ketones Urine Blood Urine Nitrate Urine Bilirubin Urine Urobilinogen Ur Leukocyte Esterase Urine WBC (Auto) Urine RBC (Auto) Ur Squamous Epith Cells Urine Bacteria Urine Glucose Blood Type Antibody Screen Imaging: - Assessment: 63y M w/pmhx of GERD, PTSD, hypothyroidism; presents to ER after some itching in throat this morning. Then he noted tongue swelling 1 hours prior to ER arrival. brought him in . No fever/chills. no new medications. no antihypertensives. no bites/wounds. no new food taken in. no prior history of swelling. no infection in mouth or teeth recently. He states he can swallow , has no trouble breathing. no sob/cp. states some change in voice noted+. -Suspected Angioedema, unclear etiology -r/o ludwigs Hypothyroidism PTSD Plan: Neuro- stable, delirium prec. asp prec. CVS- BP stable. HR stable. d/c IVF Resp- tongue and sublingual area swolling better/resolved, no resp distress or difficulty swallowing. can start PO diet. start steroid taper. d/c benadryl, cont h2b. -discussed with ENT yesterday, possible tissue infection or even ludwigs given poor dentition. will need a Dental eval at some point. -would definitely continue Abx, change to PO on discharge to augmentin for 5-7 days, discussed with patient about dental eval in coming week. no gross infection noted but needs to be looked at as possible source. -can discharge home on PO prednisone taper for 5-7 days also. ID- afebrile. wbc normal. ?dental infection. will need dental eval outpatient. Cont clindamycin today, d/c home with augmentin po 5-7 days. GI- start regular PO diet. H2b proph cont synthroid DVT prophylaxis: SCDs GI prophylaxis: h2b Alves Cathetor: no Disposition: transfer to medical floor, signed out to hospitalist service Patient Clinical Status: stable Code Status: full code expected LOS >2 midnights Keith Cerda MD Special Events Assistant (Electronically Signed)
[2018-09-09] MEDS ORDERED: methylPREDNISolone SOD 40 MG* 1 ML VIAL IV SCH (11:00)
--- NOTE | 2018-09-09 16:56 | PN ---
Progress Note - Progress Note Date of Service: 09/09/18 Note: NOTED URINE CX ENTEROCOCCUS FECALIS; START VANCO TILL SENSITIVITY RETURNS
[2018-09-09] MEDS ORDERED: Vancomycin per Pharmacy* NOTE FOLLOW UP SCH (17:00)
[2018-09-09] MEDS ORDERED: Vancomycin(*) 1,000 MG in NS 0.9% 250 ML* 250 ML IVPB SCH (17:00)
[2018-09-09] MEDS ORDERED: Vancomycin 1500 MG IV - x ONCE IVPB ONE ×2 (17:30)
[2018-09-09] MEDS: Famotidine TAB* 20 MG PO SCH (21:53)
[2018-09-10] MEDS: Vancomycin(*) 1,000 MG in NS 0.9% 250 ML* 250 ML IVPB SCH ×2 (01:15→09:40)
[2018-09-10 06:34] LABS: Hematocrit 40 % (42-52); Hemoglobin 13.5 g/dl (14.0-18.0); Mean Corpuscular HGB Conc 34 g/dl (31-36); Mean Corpuscular Hemoglobin 31 pg (27-31); Mean Corpuscular Volume 93 fL (80-94); Mean Platelet Volume 7.9 fL (7.4-10.4); Platelet Count 258 10^3/ul (150-450); Red Blood Count 4.33 10^6/ul (4.00-5.40); Red Cell Distribution Width 14 % (10.5-15); White Blood Count 14.1 10^3/ul (3.5-10.8)
[2018-09-10 06:50] LABS: BUN/Creatinine Ratio 29.5 (8-20); Calcium 8.8 mg/dL (8.6-10.3); EGFR African American 96.9 (>60); EGFR Non-African American 80.1 (>60); Potassium 4.4 mmol/L (3.5-5.0)
[2018-09-10] MEDS: Clindamycin 600 MG/D5W BAG(*) 600 MG/50 ML BAG IV SCH (08:29)
[2018-09-10] MEDS: Famotidine TAB* 20 MG PO SCH (08:30)
[2018-09-10] MEDS: methylPREDNISolone SOD 40 MG* 1 ML VIAL IV SCH (09:41)
[2018-09-10 12:04] VITALS: BP 106/76
[2018-09-10] MEDS ORDERED: Vancomycin Trough Check NOTE FOLLOW UP ONE (17:00)
--- NOTE | 2018-09-10 21:41 | DS ---
CC: Dr. Edwards * DISCHARGE SUMMARY: DATE OF ADMISSION: 09/08/18 DATE OF DISCHARGE: 09/10/18 PRIMARY CARE PROVIDER: Sin Edwards MD PRIMARY DIAGNOSIS: Angioedema. SECONDARY DIAGNOSES: Include: 1. Posttraumatic stress disorder. 2. Hypothyroidism. 3. Gastroesophageal reflux disease. MEDICATIONS ON DISCHARGE: Include: 1. Paroxetine 40 mg daily. 2. Omeprazole 40 mg daily. 3. Levothyroxine 250 mcg daily. 4. Motrin 200 mg every 6 hours as needed. 5. Calcium carbonate and magnesium hydroxide 1 chew tab 3 times daily as needed. 6. Prednisone 40 mg for 3 days, then 20 mg for 3 days, then stop. 7. Famotidine 20 mg twice daily. 8. Augmentin 875 mg twice daily for 5 additional days. PERTINENT MICROBIOLOGY: Urine is positive for Enterococcus faecalis, pansensitive. PERTINENT LABORATORY DATA: Lactic acid on presentation is 3.0. HISTORY OF PRESENT ILLNESS AND HOSPITAL COURSE: This is a 63-year-old man who presented to the hospital with itching in his throat and tongue swelling for an hour prior to presentation in the emergency room. There was concern for angioedema, however, there was no notable causative agents. He was seen in conjunction with ENT per report, however, I did not see notes to that effect in the chart with reported laryngoscopy. He was treated with subcutaneous epinephrine, IV steroids, Pepcid, and started on clindamycin. He improved over the course of the hospital stay. He was discharged to the medical floor. His urine was positive as indicated above. He had been treated with clindamycin for potential infection including concern for Teo's angina given poor dentition. He will be continued on Augmentin for this reason as well as positive urine culture, although he has no symptoms. The patient was strongly recommended to follow up with his dentist this week after discharge. He will be continued on prednisone for taper, antibiotics, Pepcid, and to follow up with his primary care provider in 4 to 7 days. At followup: 1. Please follow to ensure the patient is followed up with his dentist. 2. Please ensure no recurrence of symptoms as steroid is tapering. 3. No other specific labs or vitals that need followup. Reasons to return to the hospital including, but not limited to recurrent or worsening symptoms including itching in his throat, tongue swelling, high fever , chills, night sweats, chest pain, shortness of breath, nausea, vomiting, lightheadedness, loss of consciousness or near loss of consciousness, inability to obtain or tolerate medications discussed with the patient and his , they all acknowledged understanding. TIME SPENT: Greater than 60 minutes was spent on the discharge of this patient , greater than half was spent [id number] with the patient. [id number]/[facility] #: [id number] MTDD
== END 2018-09-10 13:20 | disposition home or self-care (01) | DRG 811 ==
LOC: ED 14:55 → ICU 15:47 → MED 09-09 10:49
PROVIDERS: ADMIT Internal Medicine Critical Care Medicine; ATTEND Internal Medicine
DX: T78.3XXA Angioneurotic edema, initial encounter (principal); N39.0 Urinary tract infection, site not specified; F43.10 Post-traumatic stress disorder, unspecified; E03.9 Hypothyroidism, unspecified; K21.9 Gastro-esophageal reflux disease without esophagitis; B95.2 Enterococcus as the cause of diseases classified elsewhere; F17.210 Nicotine dependence, cigarettes, uncomplicated; X58.XXXA Exposure to other specified factors, initial encounter; Z79.1 Long term (current) use of non-steroidal anti-inflammatories (NSAID); Z79.899 Other long term (current) drug therapy; Y92.9 Unspecified place or not applicable
CPT/HCPCS: 36415; 71045; 80048; 80053; 81003; 81015; 83605; 84484; 85025; 85027; 85610; 85730; 86850; 86900; 86901; 87040; 87077; 87086; 87186; 87641; 99285; 99406; A9270-GY; J1200; J2920; J2930; J3370

== ENCOUNTER 2019-03-14 12:32 | Emergency (ER) | payer BC, OTHER ==
[2019-03-14 13:06] VITALS: BP 110/73
--- NOTE | 2019-03-14 14:01 | UC ---
Complaint Male HPI - HPI Summary HPI Summary: 63 yo male with drop of blood noted in urine today states he had burning pain entire length of penis when voiding no back or belly pain no f/c no n/v/d - History of Current Complaint Chief Complaint: UCGU Stated Complaint: BLOOD IN URINE Time Seen by Provider: 03/14/19 13:30 Hx Obtained From: Patient Onset/Duration: Sudden Onset, Lasting Minutes Severity Initially: Severe Severity Currently: None Pain Intensity: 8 - shile voiding Location: Penis Character: Burning Aggravating Factor(s): Voiding Alleviating Factor(s): Nothing Associated Signs And Symptoms: Positive: Hematuria. Negative: Diaphoresis, Back Pain, Fever, Dysuria, Constipation, Blood in Stool, Rectal Pain, Appetite, Nausea, Vomiting(# Of Episodes =), Penile Swelling, Penile Discharge - Allergies/Home Medications Allergies/Adverse Reactions: Allergies Allergy/AdvReac Type Severity Reaction Status Date / Time No Known Allergies Allergy Verified 03/14/19 13:06 Home Medications: Home Medications buPROPion TAB* [Wellbutrin TAB*] 75 mg PO DAILY 03/14/19 [History Confirmed ] PMH/Surg Hx/FS Hx/Imm Hx Previously Healthy: Yes - Surgical History Surgical History: Yes Surgery Procedure, Year, and Place: CLEFT PALATE REPAIR AND TRACHEOSTOMY, ( [facility]). 2009 RIGHT ARM TENDON REPAIR, [facility] [place] ORIF BROKEN WRIST AND FOUR FINGERS, (8TH GRADE). 2007 LAPAROSCOPIC TO FUNDOPLICATION - ESOPHAGEAL ULCER AND HIATAL HERNIA, [facility]. 2010 RIGHT KNEE ARTHROSCOPIC SURGERY, [facility]. perforated ear drum as child - Family History Known Family History: Positive: Other Negative: Cardiac Disease, Hypertension, Diabetes Family History: Noncontributory - Social History Alcohol Use: None Substance Use Type: None Smoking Status (MU): Heavy Every Day Tobacco Smoker Type: Cigarettes Amount Used/How Often: 1/2 ppd Length of Time of Smoking/Using Tobacco: 45 YRS Have You Smoked in the Last Year: Yes Household Exposure Type: Cigarettes - Immunization History Most Recent Influenza Vaccination: fall 2017 Most Recent Tetanus Shot: received in past Most Recent Pneumonia Vaccination: never received Review of Systems All Other Systems Reviewed And Are Negative: Yes Constitutional: Positive: Negative Skin: Positive: Negative Eyes: Positive: Negative ENT: Positive: Negative Respiratory: Positive: Negative Cardiovascular: Positive: Negative Gastrointestinal: Positive: Negative Genitourinary: Positive: Dysuria, Hematuria Motor: Positive: Negative Neurovascular: Positive: Negative Musculoskeletal: Positive: Negative Neurological: Positive: Negative Psychological: Positive: Negative Physical Exam Triage Information Reviewed: Yes Appearance: Well-Appearing, No Pain Distress, Well-Nourished Vital Signs: Initial Vital Signs Temp 97.6 F 03/14/19 13:02 Pulse 91 03/14/19 13:02 Resp 18 03/14/19 13:02 BP 110/73 03/14/19 13:02 Pulse Ox 96 03/14/19 13:02 Vital Signs Reviewed: Yes Eyes: Positive: Conjunctiva Clear ENT: Positive: Hearing grossly normal. Negative: Nasal congestion, Nasal drainage, Trismus, Muffled voice, Hoarse voice Neck: Positive: Supple, Nontender, No Lymphadenopathy Respiratory: Positive: Lungs clear, Normal breath sounds, No respiratory distress Cardiovascular: Positive: RRR, No Murmur Abdomen Description: Positive: Nontender, No Organomegaly. Negative: CVA Tenderness (R), CVA Tenderness (L) Bowel Sounds: Positive: Present Male Genital Exam: Positive: Other - uncirc, glans appears slightly inflamed Musculoskeletal: Positive: No Edema Neurological: Positive: Alert Psychological Exam: Normal Skin Exam: Normal Diagnostics - Laboratory Lab Results: moderate blood noted in urine Complaint Male Course/Dx - Differential Dx/Diagnosis Provider Diagnosis: Hematuria Discharge - Sign-Out/Discharge Documenting (check all that apply): Patient Departure All imaging exams completed and their final reports reviewed: No Studies - Discharge Plan Condition: Stable Disposition: HOME Patient Education Materials: Hematuria (ED) Referrals: Jasper Way MD [Medical Doctor] - As Soon As Possible Additional Instructions: you need to see a specialist about the blood in your urine a urine culture is pending - Billing Disposition and Condition Condition: STABLE Disposition: Home
[2019-03-15 14:09] LABS: Chlamydia trachomatis NAA Negative (Negative); Neisseria gonorrhoeae (GC) NAA Negative (Negative)
== END 2019-03-14 13:58 | disposition home or self-care (01) ==
LOC: UCEAST 12:32
DX: R31.9 Hematuria, unspecified (principal); F17.210 Nicotine dependence, cigarettes, uncomplicated
CPT/HCPCS: 81002; 87086; 87491; 87591; 99211; G0463

== ENCOUNTER 2021-05-25 06:00 | Inpatient (IN) ==
[~2021-05-25 06:00] MED LIST changes: -Atracurium* 10 MG/ML 10 ML VIAL ONE; +Buffered Lidocaine 1% SYRIN 1 ml INTRADERM ONE; -Buffered Lidocaine 1% SYRIN* 3 ML/SYR SYRINGE INTRADERM ONE; -Bupivacaine 0.5% W/EPI SDV* 30 ML VIAL ONE; -Dexamethasone IV* 4 MG/ML 1 ML (4 MG) IV SLOW PU ONE; -Dexamethasone IV* 4 MG/ML 1 ML (4 MG) ONE; -EPHEDrine (Pressors)* 50 MG/ML VIAL ONE; +Famotidine IV 10 MG/ML 2 ml VIAL (20 mg) IV SLOW PU ONE; -Famotidine IV* 10 MG/ML 2 ML (20 mg) IV ONE; -Famotidine IV* 10 MG/ML 2 ML (20 mg) ONE; -Glycopyrrolate IV* 0.2 MG/ML 1 ML VIAL ONE; -KETAMINE HCL* 50 MG/ML 10 ML VIAL ONE; -Ketorolac INJ* 30 MG/ML 1 ML VIAL ONE; +Lactated Ringers 1000 ml BAG 1,000 ML IV SCH; -Levalbuterol 0.63MG/3ML NEB INH ONE; -Lidocaine 2% PF* 5 ML VIAL ONE; -Midazolam* 1 MG/ML 5 ML VIAL (5 MG) ONE; -Morphine INJ* 10 MG/ML 1 ML SYRINGE ONE; -Morphine INJ* 2 MG/ML 1 ML SYRINGE IV PRN; -Neostigmine Methylsulfate* 2 MG/2 ML SYRINGE ONE; -Ondansetron INJ* 2 MG/ML VIAL ONE; -PROCHLORPERAZINE INJ 5 MG/ML 2 ML VIAL IV PRN; -Propofol* 10 MG/ML 20 ML BTL IV PUSH ONE; +Sodium Citrate/Citric Acid LIQ 15 ML UDC PO ONE; -ceFAZolin 2 GM PREMIX(*) 2 GM/50 ML BAG IVPB ONE; -fentaNYL* 50 MCG/ML 2 ML VIAL (100 MCG VIAL) IV PRN; -fentaNYL* 50 MCG/ML 2 ML VIAL (100 MCG VIAL) ONE; -oxyCODONE/Acetamin 5/325 MG* TAB ONE; -oxyCODONE/Acetamin 5/325 MG* TAB PO PRN
[2021-05-25] MEDS ORDERED: ceFAZolin 2 GM in NS PREMIX 2 GM/100 ML BAG IVPB ONE (06:15)
[2021-05-25] MEDS ORDERED: fentaNYL 250 mcg/5 ml 50 MCG/ML 5 ml VIAL (250 MCG) ONE (06:42)
[2021-05-25] MEDS ORDERED: Propofol 10 MG/ML 20 ML BTL ONE ×2 (06:42→09:48)
[2021-05-25] MEDS ORDERED: Phenylephrine IV 10 MG/ML 1 ml VIAL ONE ×2 (06:42→10:35)
[2021-05-25] MEDS ORDERED: Remifentanil 2 MG VIAL ONE ×2 (06:42→09:49)
[2021-05-25] MEDS ORDERED: Midazolam 2 mg/2 ml VIAL 1 mg/ml 2 ml VIAL (2 mg) ONE (06:42)
[2021-05-25] MEDS ORDERED: Lidocaine 2% PF 5 ML VIAL ONE (06:42)
[2021-05-25] MEDS ORDERED: Dexamethasone IV 4 MG/ML VIAL 1 ml VIAL ONE (06:42)
[2021-05-25] MEDS ORDERED: ceFAZolin VIAL VIAL ONE ×2 (06:55→10:31)
[2021-05-25] MEDS ORDERED: Vancomycin 1,000 MG VIAL ONE (06:55)
[2021-05-25] MEDS ORDERED: Lidocaine 1% w EPI 1:200,000 SDV 30 ML VIAL ONE (06:55)
[2021-05-25] MEDS ORDERED: Bacitracin OINTMENT TUBE ONE ×2 (06:56→11:04)
[2021-05-25] MEDS ORDERED: Famotidine IV 10 MG/ML 2 ml VIAL (20 mg) ONE (07:07)
[2021-05-25] MEDS ORDERED: Sodium Citrate/Citric Acid LIQ 15 ML UDC ONE (07:07)
[2021-05-25] MEDS ORDERED: Rocuronium 50 mg VIAL 10 mg/ml 5 ml VIAL (50 mg) ONE (09:31)
[2021-05-25] MEDS ORDERED: Ondansetron 4 mg VIAL 2 MG/ML 2 ml VIAL ONE (10:33)
[2021-05-25] MEDS ORDERED: Naloxone 0.4 mg VIAL 0.4 mg/ml 1 ml VIAL IV PRN (10:45)
[2021-05-25] MEDS ORDERED: DiMENhydriNATE IV 50 mg/ml 1 ml VIAL IV PUSH PRN (10:45)
[2021-05-25] MEDS ORDERED: Ondansetron 4 mg VIAL 2 MG/ML 2 ml VIAL IV PRN ×2 (10:45→11:40)
[2021-05-25] MEDS ORDERED: Acetaminophen IV 1 GM/100ML 100 ML IV PRN (10:45)
[2021-05-25] MEDS ORDERED: Magnesium Hydroxide LIQ 30 ML UDC PO PRN (11:25)
[2021-05-25] MEDS ORDERED: Albuterol HFA INHALER 8 gm MDI INH PRN (11:40)
[2021-05-25] MEDS ORDERED: Morphine 2 MG/ML SYRINGE IV PRN (11:45)
[2021-05-25] MEDS ORDERED: Acetaminophen IV 1 GM/100ML 100 ML IV ONE (11:46)
[2021-05-25] MEDS ORDERED: fentaNYL 100 mcg/2 ml 50 MCG/ML VIAL ONE ×2 (12:05→12:30)
[2021-05-25] MEDS: fentaNYL 100 mcg/2 ml 50 MCG/ML VIAL IV PRN ×4 (12:07→13:17)
[2021-05-25] MEDS ORDERED: HYDROmorphone 1 MG/1 ML SYRINGE ONE (12:10)
[2021-05-25] MEDS: HYDROmorphone 1 MG/1 ML SYRINGE IV PRN ×3 (12:23→13:11)
[2021-05-25] MEDS: Albuterol 2.5mg/3 ml (0.083%) NEB.SOLN INH SCH ×2 (14:32→18:17)
[2021-05-25 15:10] LABS: Calcium 8.7 mg/dL (8.6-10.3); Magnesium 1.8 mg/dL (1.9-2.7); Phosphorus 3.8 mg/dL (2.5-5.0); Potassium 4.4 mmol/L (3.5-5.0)
[2021-05-25] MEDS: ceFAZolin 2 GM in NS PREMIX 2 GM/100 ML BAG IVPB SCH (17:19)
[2021-05-25] MEDS: Acetaminophen IV 1 GM/100ML 100 ML IV SCH (20:06)
[2021-05-25] MEDS: NS 0.9% 1000 ml BAG 1,000 ML IV SCH (20:08)
[2021-05-26] MEDS: ceFAZolin 2 GM in NS PREMIX 2 GM/100 ML BAG IVPB SCH ×3 (00:21→17:23)
[2021-05-26] MEDS: Acetaminophen IV 1 GM/100ML 100 ML IV SCH ×2 (04:14→13:11)
[2021-05-26] MEDS: Mometasone/Formoter 200/5 MDI INH SCH ×2 (07:23→20:12)
[2021-05-26] MEDS ORDERED: Flu vaccine *QUAD* 2021-22* 0.5 ML SYRINGE IM ONE (09:00)
[2021-05-26] MEDS ORDERED: Pneumococcal Vac 23-Polyvalent IM ONE (09:00)
[2021-05-26] MEDS: Enoxaparin 40 MG/0.4 ML SYR SUBCUT SCH (09:41)
[2021-05-26 12:53] LABS: Calcium 8.4 mg/dL (8.6-10.3); Magnesium 1.9 mg/dL (1.9-2.7); Phosphorus 3.7 mg/dL (2.5-5.0)
[2021-05-26] MEDS: NS 0.9% 1000 ml BAG 1,000 ML IV SCH (14:42)
[2021-05-27] MEDS: ceFAZolin 2 GM in NS PREMIX 2 GM/100 ML BAG IVPB SCH (00:21)
[2021-05-27] MEDS: Mometasone/Formoter 200/5 MDI INH SCH ×2 (08:40→20:01)
[2021-05-27] MEDS: ceFAZolin 2 GM PREMIX 2 GM/50 ML BAG IVPB SCH ×2 (09:15→17:01)
[2021-05-27] MEDS: Enoxaparin 40 MG/0.4 ML SYR SUBCUT SCH (10:24)
[2021-05-27 14:05] LABS: Calcium 8.5 mg/dL (8.6-10.3); Magnesium 1.7 mg/dL (1.9-2.7); Phosphorus 2.9 mg/dL (2.5-5.0)
[2021-05-27] MEDS: NS 0.9% 1000 ml BAG 1,000 ML IV SCH (15:59)
[2021-05-28] MEDS: ceFAZolin 2 GM PREMIX 2 GM/50 ML BAG IVPB SCH ×2 (02:18→08:24)
[2021-05-28] MEDS: NS 0.9% 1000 ml BAG 1,000 ML IV SCH ×2 (02:18→16:09)
[2021-05-28] MEDS: Mometasone/Formoter 200/5 MDI INH SCH ×2 (07:11→19:26)
[2021-05-28] MEDS: Enoxaparin 40 MG/0.4 ML SYR SUBCUT SCH (08:24)
[2021-05-29] MEDS: NS 0.9% 1000 ml BAG 1,000 ML IV SCH (07:14)
[2021-05-29] MEDS: Mometasone/Formoter 200/5 MDI INH SCH (07:56)
[2021-05-29] MEDS: Enoxaparin 40 MG/0.4 ML SYR SUBCUT SCH (08:24)
[2021-05-29 11:43] VITALS: BP 127/86
== END 2021-05-29 13:00 | disposition home or self-care (01) | DRG 472 ==
LOC: OR 06:00 → SSU 14:00
PROVIDERS: ADMIT Neurological Surgery; ATTEND Neurological Surgery

== ENCOUNTER 2022-02-20 19:46 | Inpatient (IN) ==
[2022-02-20] MEDS ORDERED: Morphine 4 MG/ML VIAL (1 ml) IV ONE ×2 (20:26→21:54)
[2022-02-20] MEDS ORDERED: Morphine 4 MG/ML VIAL (1 ml) IM ONE ×2 (20:41→21:50)
[2022-02-20 22:17] LABS: ABS Eosinophils 0.1 10^3/ul (0-0.6); ABS Lymphocytes 1.1 10^3/ul (1.0-4.8); ABS Monocytes 0.5 10^3/ul (0-0.8); ABS Neutrophils 6.8 10^3/ul (1.5-7.7); Eosinophil % 0.7 %; Hematocrit 41 % (42-52); Hemoglobin 13.6 g/dL (14.0-18.0); Lymphocyte % 13.3 %; Mean Corpuscular HGB Conc 33 g/dL (31-36); Mean Corpuscular Hemoglobin 32 pg (27-31); Mean Corpuscular Volume 98 fL (80-94); Mean Platelet Volume 8.1 fL (7.4-10.4); Platelet Count 202 10^3/uL (150-450); Red Cell Distribution Width 14 % (10-15); White Blood Count 8.5 10^3/uL (3.5-10.8)
[2022-02-20 22:24] LABS: INR 1.1 (0.89-1.11)
[2022-02-20 23:13] LABS: Albumin 4.1 g/dL (3.2-5.2); Albumin/Globulin Ratio 1.6 (1-3); Calcium 8.6 mg/dL (8.6-10.3); Globulin 2.5 g/dL (2-4); Potassium 4.5 mmol/L (3.5-5.0); Total Bilirubin 0.5 mg/dL (0.2-1.0); Total Protein 6.6 g/dL (6.4-8.9)
[2022-02-20] MEDS ORDERED: Lactated Ringers 1000 ml BAG 1,000 ML IV ONE (23:54)
[2022-02-21] MEDS ORDERED: Ondansetron 4 mg VIAL 2 MG/ML 2 ml VIAL IV PRN (01:04)
[2022-02-21] MEDS ORDERED: Albuterol HFA INHALER 8 gm MDI INH PRN (01:16)
[2022-02-21] MEDS: Heparin 5000 UNITS/ML 1 mL VIAL SUBCUT SCH ×3 (06:00→21:18)
[2022-02-21 06:04] LABS: ABS Monocytes 0.9 10^3/ul (0-0.8); ABS Neutrophils 8.6 10^3/ul (1.5-7.7); Eosinophil % 0.1 %; Hematocrit 42 % (42-52); Hemoglobin 14.1 g/dL (14.0-18.0); Lymphocyte % 9.4 %; Mean Corpuscular HGB Conc 34 g/dL (31-36); Mean Corpuscular Hemoglobin 33 pg (27-31); Mean Corpuscular Volume 98 fL (80-94); Mean Platelet Volume 8.1 fL (7.4-10.4); Platelet Count 193 10^3/uL (150-450); Red Cell Distribution Width 15 % (10-15); White Blood Count 10.5 10^3/uL (3.5-10.8)
[2022-02-21 06:05] LABS: Venous Bicarbonate HCO3 27.2 mmol/L (24-28)
[2022-02-21 06:35] LABS: Calcium 8.7 mg/dL (8.6-10.3); Potassium 4.8 mmol/L (3.5-5.0); eGFR CKD-EPI 53.6 (>60)
[2022-02-21] MEDS ORDERED: Iohexol 350 (CONTRAST) 500 ML MDV IV ONE (06:55)
[2022-02-21 07:18] LABS: PCO2 Arterial 49 mmHg (35-45); PO2 Arterial 76 mmHg (80-100)
[2022-02-21] MEDS: Acetaminophen IV 1 GM/100ML 100 ML IV PRN ×2 (09:39→21:18)
[2022-02-21] MEDS: Lactated Ringers 1000 ml BAG 1,000 ML IV SCH (09:40)
[2022-02-21 10:45] LABS: Magnesium 2.1 mg/dL (1.9-2.7)
[2022-02-21 13:45] LABS: Urine Appearance Clear; Urine Color Yellow
[2022-02-21 13:46] LABS: Urine Bilirubin Negative (Negative); Urine Blood 1+ (Small) (Negative); Urine Glucose Negative (Negative); Urine Ketones Negative (Negative); Urine Nitrite Positive (Negative); Urine Protein 1+ (30 mg/dL) (Negative); Urine Urobilinogen 1.0 (Negative) (Negative)
[2022-02-21 13:56] LABS: Urine Bacteria Absent (Absent); Urine Red Blood Cell 3+(>10/hpf) (Absent); Urine Squamous Epithelial Cell Present (Absent); Urine White Blood Cell 3+(>20/hpf) (Absent)
[2022-02-21] MEDS: Albuterol/Ipratropium NEB.SOL (2.5/0.5 MG) 3 ML NEB.SOLN INH SCH (19:56)
[2022-02-21] MEDS: Budesonide NEB 0.5 MG/2 ML NEB.SOLN INH SCH (19:56)
[2022-02-22 01:28] LABS: Free T4 0.15 ng/dL (0.61-1.12)
[2022-02-22 02:38] LABS: TSH Ultra Thyroid Stim Horm 91.92 mcIU/mL (0.34-5.60)
[2022-02-22] MEDS: Heparin 5000 UNITS/ML 1 mL VIAL SUBCUT SCH (04:05)
[2022-02-22] MEDS ORDERED: SPIRIVA Respimat (tiotropium) 2.5 mcg/inh Inhaler INH SCH (09:00)
[2022-02-22] MEDS: Albuterol/Ipratropium NEB.SOL (2.5/0.5 MG) 3 ML NEB.SOLN INH SCH (09:22)
[2022-02-22] MEDS: Budesonide NEB 0.5 MG/2 ML NEB.SOLN INH SCH (09:23)
[2022-02-22] MEDS ORDERED: Nicotine GUM 4MG FRUIT FLAVOR PO PRN (09:55)
[2022-02-22] MEDS: Mometasone/Formoter 100/5 MDI INH SCH ×2 (10:35→19:11)
[2022-02-22] MEDS: Acetaminophen IV 1 GM/100ML 100 ML IV PRN (12:08)
[2022-02-22] MEDS ORDERED: ceFAZolin 2 GM in NS PREMIX 2 GM/100 ML BAG IVPB ONE ×2 (13:16→19:00)
[2022-02-22] MEDS ORDERED: Dexamethasone IV 4 MG/ML VIAL 1 ml VIAL ONE (13:40)
[2022-02-22] MEDS ORDERED: Phenylephrine IV 10 MG/ML 1 ml VIAL ONE (13:40)
[2022-02-22] MEDS ORDERED: Ondansetron 4 mg VIAL 2 MG/ML 2 ml VIAL ONE (13:40)
[2022-02-22] MEDS ORDERED: Metoclopramide 5 MG/ML VIAL (10 mg) ONE (13:40)
[2022-02-22] MEDS ORDERED: fentaNYL 100 mcg/2 ml 50 MCG/ML VIAL ONE (13:59)
[2022-02-22] MEDS: Lactated Ringers 1000 ml BAG 1,000 ML IV SCH (18:06)
[2022-02-22] MEDS: ceFAZolin 1 GM X 3 DOSES POST-OP Q8H (AddVan) IVPB SCH (23:07)
[2022-02-23] MEDS: Lactated Ringers 1000 ml BAG 1,000 ML IV SCH (02:48)
[2022-02-23 05:18] LABS: Hematocrit 38 % (42-52); Hemoglobin 12.8 g/dL (14.0-18.0); Mean Platelet Volume 8.2 fL (7.4-10.4); Platelet Count 165 10^3/uL (150-450)
[2022-02-23 05:39] LABS: Calcium 7.8 mg/dL (8.6-10.3); Potassium 4.2 mmol/L (3.5-5.0); eGFR CKD-EPI 54.5 (>60)
[2022-02-23] MEDS: ceFAZolin 1 GM X 3 DOSES POST-OP Q8H (AddVan) IVPB SCH ×2 (06:03→13:39)
[2022-02-23] MEDS: Mometasone/Formoter 100/5 MDI INH SCH ×2 (08:19→19:32)
[2022-02-23] MEDS: Nicotine PATCH 21 MG/24 HR PATCH TRANSDERM SCH (08:41)
[2022-02-23] MEDS: Enoxaparin 40 MG/0.4 ML SYR SUBCUT SCH (12:11)
[2022-02-24 05:45] LABS: Hematocrit 36 % (42-52); Mean Platelet Volume 8.3 fL (7.4-10.4); Platelet Count 173 10^3/uL (150-450)
[2022-02-24 06:24] LABS: Calcium 7.9 mg/dL (8.6-10.3); Potassium 4.1 mmol/L (3.5-5.0)
[2022-02-24] MEDS: Mometasone/Formoter 100/5 MDI INH SCH ×2 (07:23→19:46)
[2022-02-24] MEDS: Polyethylene Glycol 3350 17 GM PACKET PO PRN (09:18)
[2022-02-24] MEDS: Senna TAB 8.6 mg TAB PO PRN (09:19)
[2022-02-24] MEDS: Nicotine PATCH 21 MG/24 HR PATCH TRANSDERM SCH (09:21)
[2022-02-24] MEDS: Enoxaparin 40 MG/0.4 ML SYR SUBCUT SCH (11:53)
[2022-02-25 05:38] LABS: Hematocrit 34 % (42-52); Hemoglobin 11.6 g/dL (14.0-18.0); Platelet Count 179 10^3/uL (150-450)
[2022-02-25 06:14] LABS: Calcium 7.7 mg/dL (8.6-10.3); eGFR CKD-EPI 68.1 (>60)
[2022-02-25] MEDS: Mometasone/Formoter 100/5 MDI INH SCH ×2 (07:30→19:46)
[2022-02-25] MEDS: SPIRIVA Respimat (tiotropium) 2.5 mcg/inh Inhaler INH SCH (07:31)
[2022-02-25] MEDS: Polyethylene Glycol 3350 17 GM PACKET PO PRN (07:58)
[2022-02-25] MEDS: Senna TAB 8.6 mg TAB PO PRN (08:00)
[2022-02-25] MEDS: Nicotine PATCH 21 MG/24 HR PATCH TRANSDERM SCH (08:10)
[2022-02-25] MEDS ORDERED: Magnesium Hydroxide LIQ 30 ML UDC PO PRN (10:36)
[2022-02-25] MEDS: Enoxaparin 40 MG/0.4 ML SYR SUBCUT SCH (11:16)
[2022-02-26] MEDS: SPIRIVA Respimat (tiotropium) 2.5 mcg/inh Inhaler INH SCH (07:36)
[2022-02-26] MEDS: Mometasone/Formoter 100/5 MDI INH SCH ×2 (07:36→19:33)
[2022-02-26] MEDS ORDERED: Calcium Carb (TUMS) 500 mg CHEW TAB PO PRN (09:16)
[2022-02-26] MEDS: Enoxaparin 40 MG/0.4 ML SYR SUBCUT SCH (10:18)
[2022-02-26] MEDS: Nicotine PATCH 21 MG/24 HR PATCH TRANSDERM SCH (10:18)
[2022-02-27] MEDS: Mometasone/Formoter 100/5 MDI INH SCH ×2 (07:42→19:10)
[2022-02-27] MEDS: SPIRIVA Respimat (tiotropium) 2.5 mcg/inh Inhaler INH SCH (07:42)
[2022-02-27] MEDS: Nicotine PATCH 21 MG/24 HR PATCH TRANSDERM SCH (09:36)
[2022-02-27] MEDS: Enoxaparin 40 MG/0.4 ML SYR SUBCUT SCH (12:53)
[2022-02-28] MEDS: Nicotine PATCH 21 MG/24 HR PATCH TRANSDERM SCH (08:05)
[2022-02-28] MEDS: Mometasone/Formoter 100/5 MDI INH SCH ×2 (08:49→19:12)
[2022-02-28] MEDS: SPIRIVA Respimat (tiotropium) 2.5 mcg/inh Inhaler INH SCH (08:52)
[2022-02-28] MEDS: Enoxaparin 40 MG/0.4 ML SYR SUBCUT SCH (12:31)
[2022-03-01] MEDS: Mometasone/Formoter 100/5 MDI INH SCH (07:47)
[2022-03-01] MEDS: SPIRIVA Respimat (tiotropium) 2.5 mcg/inh Inhaler INH SCH (07:47)
[2022-03-01] MEDS: Nicotine PATCH 21 MG/24 HR PATCH TRANSDERM SCH (08:58)
[2022-03-01 11:23] VITALS: BP 100/67
[2022-03-01 11:41] LABS: Rapid COVID-19 Molecular Undetected (Undetected)
[2022-03-01] MEDS: Enoxaparin 40 MG/0.4 ML SYR SUBCUT SCH (12:21)
== END 2022-03-01 13:15 | DRG 480 ==
LOC: ED 19:46 → EDHOLD 02-21 00:53 → SUATTDRO 02-21 00:53 → SSU 02-21 06:46
PROVIDERS: ADMIT Internal Medicine; ATTEND Hospitalist

== ENCOUNTER 2022-12-30 17:51 | Inpatient (IN) ==
[2022-12-30] MEDS ORDERED: Morphine 4 MG/ML VIAL (1 ml) IV ONE (19:21)
[2022-12-30 20:03] LABS: ABS Basophils 0.1 10^3/uL (0.0-0.1); ABS Eosinophils 0.1 10^3/uL (0.0-0.5); ABS Lymphocytes 0.8 10^3/uL (1.0-4.8); ABS Monocytes 0.6 10^3/uL (0.0-1.1); ABS Neutrophils 11.2 10^3/uL (1.5-7.6); ABS Nucleated RBC 0.01 10^3/ul; Eosinophil % 0.8 %; Hematocrit 37.1 % (38-53); Hemoglobin 12.1 g/dL (13.2-16.3); Lymphocyte % 6.6 %; Mean Corpuscular Hemoglobin 28.7 pg (27-33); Mean Corpuscular Hgb Conc 32.6 g/dL (31-36); Mean Corpuscular Volume 88.1 fL (80-97); Mean Platelet Volume 7.1 fL (7.5-11.2); Platelet Count 366 10^3/uL (150-450); Red Blood Count 4.21 10^6/uL (4.06-5.63); Red Cell Distribution Width 15.6 % (12-17); White Blood Count 12.8 10^3/uL (3.6-10.2)
[2022-12-30 20:12] LABS: INR 1.49 (0.88-1.18)
[2022-12-30 20:21] LABS: Albumin 3.4 g/dL (3.2-5.2); C Reactive Protein 101.06 mg/L (<8.01); Calcium 8.9 mg/dL (8.6-10.3); Creatinine, Serum 1.31 mg/dL (0.67-1.17); Globulin 3.5 g/dL (2-4); Total Bilirubin 0.6 mg/dL (0.2-1.0); Total Protein 6.9 g/dL (6.4-8.9); eGFR CKD-EPI 59.7 (>60)
[2022-12-30] MEDS ORDERED: Lactated Ringers 1000 ml BAG 1,000 ML IV ONE (20:25)
[2022-12-30 21:34] LABS: High Sensitivity Troponin 1 Hr 5 pg/mL (<20)
[2022-12-30] MEDS ORDERED: Morphine 2 MG/ML SYRINGE IV PRN (21:44)
[2022-12-30] MEDS ORDERED: Albuterol HFA INHALER 8 gm MDI INH PRN (21:47)
[2022-12-30] MEDS ORDERED: ceFAZolin 1 GM ADVAN 1 GM in NS 0.9% 50 ML 50 ML IVPB SCH (22:00)
[2022-12-30] MEDS: Fluticasone NASAL SPRAY 50MCG 16 gm SPRAY BTL INTRANASAL SCH (22:59)
[2022-12-30] MEDS ORDERED: Phytonadione Oral Solution 5 MG/25 ML UDC PO ONE ×2 (23:34)
[2022-12-31] MEDS: Enoxaparin 40 MG/0.4 ML SYR SUBCUT SCH ×2 (01:27→21:20)
[2022-12-31 03:13] LABS: Hematocrit 34.8 % (38-53); Hemoglobin 11.5 g/dL (13.2-16.3); Mean Corpuscular Hemoglobin 28.6 pg (27-33); Mean Corpuscular Hgb Conc 33.2 g/dL (31-36); Mean Corpuscular Volume 86.3 fL (80-97); Mean Platelet Volume 7.1 fL (7.5-11.2); Platelet Count 315 10^3/uL (150-450); Red Blood Count 4.03 10^6/uL (4.06-5.63); Red Cell Distribution Width 15.6 % (12-17); White Blood Count 12.1 10^3/uL (3.6-10.2)
[2022-12-31 03:29] LABS: Calcium 8.4 mg/dL (8.6-10.3); Creatinine, Serum 1.23 mg/dL (0.67-1.17); Potassium 3.7 mmol/L (3.5-5.0); Total Bilirubin 0.6 mg/dL (0.2-1.0); eGFR CKD-EPI 64.3 (>60)
[2022-12-31] MEDS ORDERED: Furosemide 40 mg/4 ml IV VIAL IV ONE (03:30)
[2022-12-31 03:39] LABS: RBC Morphology Normal (Normal)
[2022-12-31 03:40] LABS: ABS Basophils 0.1 10^3/uL (0.0-0.1); ABS Lymphocytes 0.8 10^3/uL (1.0-4.8); ABS Monocytes 0.6 10^3/uL (0.0-1.1); ABS Neutrophils 10.6 10^3/uL (1.5-7.6); Eosinophil % 0.1 %; Lymphocyte % 6.9 %
[2022-12-31] MEDS ORDERED: Iohexol 350 (CONTRAST) 500 ML MDV IV ONE ×2 (03:47→07:14)
[2022-12-31 04:11] LABS: PCO2 Arterial 43 mmHg (35-45); PO2 Arterial 64 mmHg (80-100)
[2022-12-31] MEDS ORDERED: ceFAZolin 1 GM ADVAN 1 GM in NS 0.9% 50 ML 50 ML IVPB SCH (06:00)
[2022-12-31] MEDS ORDERED: DOXYcycline 100 MG in NS 0.9% 250 ml 250 ML IVPB SCH (06:30)
[2022-12-31 08:44] LABS: Urine Appearance Cloudy; Urine Bilirubin Negative (Negative); Urine Blood 1+ (Negative); Urine Color Straw; Urine Glucose Negative (Negative); Urine Ketones Negative (Negative); Urine Nitrite Negative (Negative); Urine Protein Negative (Negative); Urine Specific Gravity 1.029 (1.002-1.030); Urine Urobilinogen Negative (Negative)
[2022-12-31 08:49] LABS: Urine Bacteria Absent (Absent); Urine Red Blood Cell 2+(6-10/hpf) (Absent); Urine Squamous Epithelial Cell Present (Absent); Urine White Blood Cell 3+(>20/hpf) (Absent)
[2022-12-31] MEDS: cefTRIAXone 1 gm/50 mL D5W 1 GM/50 ML BAG IV SCH (08:49)
[2022-12-31 08:52] LABS: INR 1.64 (0.88-1.18)
[2022-12-31] MEDS: Nystatin TOP POWDER 15 GM BTL TOPICAL SCH ×4 (09:02→21:43)
[2022-12-31] MEDS: Lactated Ringers 1000 ml BAG 1,000 ML IV ONE ×2 (09:16→18:29)
[2022-12-31] MEDS: Fluticasone NASAL SPRAY 50MCG 16 gm SPRAY BTL INTRANASAL SCH (09:19)
[2022-12-31] MEDS: DOXYcycline 100 MG in NS 0.9% 250 ml 250 ML IVPB SCH ×2 (11:47→21:31)
[2022-12-31] MEDS ORDERED: Potassium Chlor 10 meq TAB PO ONE (12:00)
[2022-12-31] MEDS: Phytonadione Oral Solution 5 MG/25 ML UDC PO SCH ×2 (12:15→21:39)
[2022-12-31] MEDS: Mometasone/Formoter 200/5 MDI INH SCH ×2 (14:46→18:57)
[2022-12-31] MEDS ORDERED: fentaNYL 100 mcg/2 ml 50 MCG/ML VIAL ONE (18:08)
[2023-01-01 05:41] LABS: Hematocrit 33.6 % (38-53); Hemoglobin 10.9 g/dL (13.2-16.3); Mean Corpuscular Hemoglobin 28.6 pg (27-33); Mean Corpuscular Hgb Conc 32.6 g/dL (31-36); Mean Corpuscular Volume 87.5 fL (80-97); Mean Platelet Volume 7.4 fL (7.5-11.2); Platelet Count 304 10^3/uL (150-450); Red Blood Count 3.83 10^6/uL (4.06-5.63); Red Cell Distribution Width 15.9 % (12-17); White Blood Count 12.6 10^3/uL (3.6-10.2)
[2023-01-01 05:56] LABS: Calcium 8.3 mg/dL (8.6-10.3); Creatinine, Serum 1.06 mg/dL (0.67-1.17); Magnesium 1.9 mg/dL (1.9-2.7); Potassium 3.6 mmol/L (3.5-5.0); eGFR CKD-EPI 76.9 (>60)
[2023-01-01] MEDS ORDERED: Potassium Chlor 20 meq TAB.ER PO ONE (06:02)
[2023-01-01] MEDS: cefTRIAXone 1 gm/50 mL D5W 1 GM/50 ML BAG IV SCH (06:11)
[2023-01-01] MEDS: Mometasone/Formoter 200/5 MDI INH SCH ×2 (07:32→20:12)
[2023-01-01] MEDS: DOXYcycline 100 MG in NS 0.9% 250 ml 250 ML IVPB SCH ×2 (08:49→20:33)
[2023-01-01] MEDS: Fluticasone NASAL SPRAY 50MCG 16 gm SPRAY BTL INTRANASAL SCH (08:50)
[2023-01-01] MEDS: Nystatin TOP POWDER 15 GM BTL TOPICAL SCH ×3 (08:50→20:38)
[2023-01-01 09:52] LABS: INR 1.59 (0.88-1.18)
[2023-01-01] MEDS: Senna TAB 8.6 mg TAB PO PRN (14:08)
[2023-01-01] MEDS: Enoxaparin 40 MG/0.4 ML SYR SUBCUT SCH (20:29)
[2023-01-02] MEDS: cefTRIAXone 1 gm/50 mL D5W 1 GM/50 ML BAG IV SCH (05:18)
[2023-01-02] MEDS: Mometasone/Formoter 200/5 MDI INH SCH ×2 (07:11→19:08)
[2023-01-02 08:08] LABS: Hematocrit 33.2 % (38-53); Hemoglobin 10.9 g/dL (13.2-16.3); Mean Corpuscular Hgb Conc 32.7 g/dL (31-36); Mean Corpuscular Volume 85.8 fL (80-97); Mean Platelet Volume 7.1 fL (7.5-11.2); Platelet Count 336 10^3/uL (150-450); Red Blood Count 3.87 10^6/uL (4.06-5.63); Red Cell Distribution Width 15.8 % (12-17); White Blood Count 11.9 10^3/uL (3.6-10.2)
[2023-01-02 08:23] LABS: Calcium 8.4 mg/dL (8.6-10.3); Creatinine, Serum 0.93 mg/dL (0.67-1.17); Potassium 4.1 mmol/L (3.5-5.0)
[2023-01-02 08:45] LABS: Anisocytosis 1+; Polychromasia 1+
[2023-01-02 08:46] LABS: ABS Basophils 0.1 10^3/uL (0.0-0.1); ABS Eosinophils 0.2 10^3/uL (0.0-0.5); ABS Lymphocytes 0.8 10^3/uL (1.0-4.8); ABS Monocytes 0.9 10^3/uL (0.0-1.1); Eosinophil % 1.6 %; Lymphocyte % 6.8 %
[2023-01-02] MEDS: Fluticasone NASAL SPRAY 50MCG 16 gm SPRAY BTL INTRANASAL SCH (09:34)
[2023-01-02] MEDS: Nystatin TOP POWDER 15 GM BTL TOPICAL SCH ×3 (09:34→20:38)
[2023-01-02] MEDS: DOXYcycline 100 MG in NS 0.9% 250 ml 250 ML IVPB SCH ×2 (09:45→20:41)
[2023-01-02] MEDS: Senna TAB 8.6 mg TAB PO PRN (14:06)
[2023-01-02] MEDS: Albuterol/Ipratropium NEB.SOL (2.5/0.5 MG) 3 ML NEB.SOLN INH SCH ×2 (14:30→19:07)
[2023-01-02] MEDS: Enoxaparin 40 MG/0.4 ML SYR SUBCUT SCH (20:38)
[2023-01-02] MEDS: Polyethylene Glycol 3350 17 GM PACKET PO PRN (20:38)
[2023-01-03] MEDS: cefTRIAXone 1 gm/50 mL D5W 1 GM/50 ML BAG IV SCH (05:38)
[2023-01-03 06:03] LABS: ABS Eosinophils 0.1 10^3/uL (0.0-0.5); ABS Lymphocytes 1.1 10^3/uL (1.0-4.8); ABS Monocytes 1.3 10^3/uL (0.0-1.1); ABS Neutrophils 9.1 10^3/uL (1.5-7.6); Eosinophil % 0.7 %; Hematocrit 35.5 % (38-53); Hemoglobin 11.7 g/dL (13.2-16.3); Lymphocyte % 9.1 %; Mean Corpuscular Hemoglobin 28.6 pg (27-33); Mean Corpuscular Hgb Conc 32.9 g/dL (31-36); Mean Corpuscular Volume 87.1 fL (80-97); Mean Platelet Volume 7.3 fL (7.5-11.2); Platelet Count 397 10^3/uL (150-450); Red Blood Count 4.07 10^6/uL (4.06-5.63); Red Cell Distribution Width 15.6 % (12-17); White Blood Count 11.6 10^3/uL (3.6-10.2)
[2023-01-03 06:09] LABS: INR 1.37 (0.88-1.18)
[2023-01-03] MEDS: Fluticasone NASAL SPRAY 50MCG 16 gm SPRAY BTL INTRANASAL SCH (07:20)
[2023-01-03] MEDS: Nystatin TOP POWDER 15 GM BTL TOPICAL SCH ×3 (07:20→20:02)
[2023-01-03] MEDS: Albuterol/Ipratropium NEB.SOL (2.5/0.5 MG) 3 ML NEB.SOLN INH SCH ×2 (07:28→11:02)
[2023-01-03] MEDS: Mometasone/Formoter 200/5 MDI INH SCH ×2 (07:28→19:07)
[2023-01-03] MEDS: DOXYcycline 100 MG in NS 0.9% 250 ml 250 ML IVPB SCH ×2 (09:02→20:02)
[2023-01-03] MEDS: SPIRIVA Respimat (tiotropium) 2.5 mcg/inh Inhaler INH SCH ×2 (12:10→13:29)
[2023-01-03] MEDS: Albuterol 2.5mg/3 ml (0.083%) NEB.SOLN INH SCH ×2 (15:04→19:07)
[2023-01-03] MEDS: Senna TAB 8.6 mg TAB PO PRN (20:01)
[2023-01-03] MEDS: Enoxaparin 40 MG/0.4 ML SYR SUBCUT SCH (20:02)
[2023-01-04] MEDS: cefTRIAXone 1 gm/50 mL D5W 1 GM/50 ML BAG IV SCH (05:30)
[2023-01-04 06:20] LABS: ABS Lymphocytes 1.2 10^3/uL (1.0-4.8); ABS Monocytes 1.5 10^3/uL (0.0-1.1); ABS Neutrophils 8.7 10^3/uL (1.5-7.6); Hematocrit 32.6 % (38-53); Hemoglobin 10.7 g/dL (13.2-16.3); Lymphocyte % 10.8 %; Mean Corpuscular Hemoglobin 28.1 pg (27-33); Mean Corpuscular Hgb Conc 32.8 g/dL (31-36); Mean Corpuscular Volume 85.6 fL (80-97); Mean Platelet Volume 7.5 fL (7.5-11.2); Platelet Count 385 10^3/uL (150-450); Red Blood Count 3.81 10^6/uL (4.06-5.63); Red Cell Distribution Width 15.6 % (12-17); White Blood Count 11.4 10^3/uL (3.6-10.2)
[2023-01-04 06:30] LABS: INR 1.34 (0.88-1.18)
[2023-01-04 06:49] LABS: Calcium 8.8 mg/dL (8.6-10.3); Creatinine, Serum 0.94 mg/dL (0.67-1.17); eGFR CKD-EPI 88.9 (>60)
[2023-01-04] MEDS: Albuterol 2.5mg/3 ml (0.083%) NEB.SOLN INH SCH ×4 (07:53→19:41)
[2023-01-04] MEDS: SPIRIVA Respimat (tiotropium) 2.5 mcg/inh Inhaler INH SCH (07:57)
[2023-01-04] MEDS: Mometasone/Formoter 200/5 MDI INH SCH ×2 (07:57→19:40)
[2023-01-04] MEDS: Nystatin TOP POWDER 15 GM BTL TOPICAL SCH ×3 (08:22→20:23)
[2023-01-04] MEDS: Fluticasone NASAL SPRAY 50MCG 16 gm SPRAY BTL INTRANASAL SCH (08:22)
[2023-01-04] MEDS: DOXYcycline 100 MG in NS 0.9% 250 ml 250 ML IVPB SCH ×2 (08:35→20:19)
[2023-01-04] MEDS: Polyethylene Glycol 3350 17 GM PACKET PO PRN (15:22)
[2023-01-04] MEDS ORDERED: Phytonadione Oral Solution 5 MG/25 ML UDC PO ONE (18:03)
[2023-01-04] MEDS: Senna TAB 8.6 mg TAB PO PRN (20:14)
[2023-01-04] MEDS: Enoxaparin 40 MG/0.4 ML SYR SUBCUT SCH (20:17)
[2023-01-05] MEDS: cefTRIAXone 1 gm/50 mL D5W 1 GM/50 ML BAG IV SCH (04:59)
[2023-01-05 06:34] LABS: ABS Lymphocytes 1.6 10^3/uL (1.0-4.8); ABS Monocytes 1.4 10^3/uL (0.0-1.1); ABS Neutrophils 6.9 10^3/uL (1.5-7.6); ABS Nucleated RBC 0.01 10^3/ul; Eosinophil % 0.2 %; Hematocrit 32.1 % (38-53); Hemoglobin 10.5 g/dL (13.2-16.3); Lymphocyte % 15.7 %; Mean Corpuscular Hemoglobin 28.3 pg (27-33); Mean Corpuscular Hgb Conc 32.8 g/dL (31-36); Mean Corpuscular Volume 86.1 fL (80-97); Mean Platelet Volume 7.1 fL (7.5-11.2); Nucleated Red Blood Cells % 0.1 /100 WBC (0.0-0.4); Platelet Count 435 10^3/uL (150-450); Red Blood Count 3.73 10^6/uL (4.06-5.63); Red Cell Distribution Width 15.6 % (12-17)
[2023-01-05 06:55] LABS: Calcium 8.8 mg/dL (8.6-10.3); Creatinine, Serum 0.9 mg/dL (0.67-1.17); Potassium 3.8 mmol/L (3.5-5.0); eGFR CKD-EPI 93.6 (>60)
[2023-01-05] MEDS: Albuterol 2.5mg/3 ml (0.083%) NEB.SOLN INH SCH ×4 (07:29→19:14)
[2023-01-05] MEDS: Mometasone/Formoter 200/5 MDI INH SCH ×2 (07:29→19:15)
[2023-01-05] MEDS: SPIRIVA Respimat (tiotropium) 2.5 mcg/inh Inhaler INH SCH (07:29)
[2023-01-05] MEDS: Nystatin TOP POWDER 15 GM BTL TOPICAL SCH ×3 (09:16→22:05)
[2023-01-05] MEDS: Senna TAB 8.6 mg TAB PO PRN (09:19)
[2023-01-05] MEDS: Polyethylene Glycol 3350 17 GM PACKET PO PRN (09:19)
[2023-01-05] MEDS: Fluticasone NASAL SPRAY 50MCG 16 gm SPRAY BTL INTRANASAL SCH (09:21)
[2023-01-05] MEDS: DOXYcycline 100 MG in NS 0.9% 250 ml 250 ML IVPB SCH ×2 (09:29→22:04)
[2023-01-05 10:15] LABS: INR 1.34 (0.88-1.18)
[2023-01-05] MEDS ORDERED: Phytonadione Oral Solution 5 MG/25 ML UDC PO ONE (16:15)
[2023-01-05 16:39] LABS: C Reactive Protein 101.72 mg/L (<8.01)
[2023-01-05] MEDS: Acetylcysteine INH SOL (RT) 200 MG/ML 4 ML VIAL INH SCH (19:14)
[2023-01-05] MEDS ORDERED: Enoxaparin 40 MG/0.4 ML SYR SUBCUT ONE (20:45)
[2023-01-05] MEDS: Lidocaine PATCH 5% PATCH TRANSDERM SCH (22:05)
[2023-01-05] MEDS: Magnesium Hydroxide LIQ 30 ML UDC PO PRN (22:38)
[2023-01-05] MEDS ORDERED: Hyaluronidase HUMAN 15 UNIT in Sodium Chloride 0.9% 0.9 ML INTRADERM ONE (23:51)
[2023-01-06] MEDS: Acetylcysteine INH SOL (RT) 200 MG/ML 4 ML VIAL INH SCH ×4 (00:53→19:17)
[2023-01-06] MEDS: cefTRIAXone 1 gm/50 mL D5W 1 GM/50 ML BAG IV SCH (05:43)
[2023-01-06] MEDS: Mometasone/Formoter 200/5 MDI INH SCH ×2 (07:44→19:17)
[2023-01-06] MEDS: SPIRIVA Respimat (tiotropium) 2.5 mcg/inh Inhaler INH SCH (07:44)
[2023-01-06] MEDS: Albuterol 2.5mg/3 ml (0.083%) NEB.SOLN INH SCH ×4 (07:46→19:17)
[2023-01-06] MEDS: Fluticasone NASAL SPRAY 50MCG 16 gm SPRAY BTL INTRANASAL SCH (10:25)
[2023-01-06] MEDS: Lidocaine PATCH 5% PATCH TRANSDERM SCH (10:25)
[2023-01-06] MEDS: Nystatin TOP POWDER 15 GM BTL TOPICAL SCH ×2 (10:25→15:26)
[2023-01-06] MEDS: DOXYcycline 100 MG in NS 0.9% 250 ml 250 ML IVPB SCH ×2 (11:06→22:48)
[2023-01-06] MEDS ORDERED: Morphine 2 MG/ML SYRINGE IV ONE (12:06)
[2023-01-06] MEDS: Morphine 2 MG/ML SYRINGE IV PRN (22:30)
[2023-01-07] MEDS: Magnesium Hydroxide LIQ 30 ML UDC PO PRN ×2 (00:04→09:10)
[2023-01-07] MEDS: Senna TAB 8.6 mg TAB PO PRN (00:04)
[2023-01-07] MEDS: Nystatin TOP POWDER 15 GM BTL TOPICAL SCH ×4 (00:04→21:24)
[2023-01-07] MEDS: Acetylcysteine INH SOL (RT) 200 MG/ML 4 ML VIAL INH SCH ×5 (01:25→19:34)
[2023-01-07] MEDS: Morphine 2 MG/ML SYRINGE IV PRN ×3 (02:52→21:44)
[2023-01-07] MEDS: cefTRIAXone 1 gm/50 mL D5W 1 GM/50 ML BAG IV SCH (06:13)
[2023-01-07 06:38] LABS: ABS Eosinophils 0.1 10^3/uL (0.0-0.5); ABS Lymphocytes 1.6 10^3/uL (1.0-4.8); ABS Neutrophils 6.4 10^3/uL (1.5-7.6); ABS Nucleated RBC 0.01 10^3/ul; Eosinophil % 0.9 %; Hematocrit 35.2 % (38-53); Hemoglobin 11.5 g/dL (13.2-16.3); Mean Corpuscular Hemoglobin 28.3 pg (27-33); Mean Corpuscular Hgb Conc 32.6 g/dL (31-36); Mean Corpuscular Volume 86.6 fL (80-97); Mean Platelet Volume 7.1 fL (7.5-11.2); Nucleated Red Blood Cells % 0.1 /100 WBC (0.0-0.4); Platelet Count 453 10^3/uL (150-450); Red Blood Count 4.06 10^6/uL (4.06-5.63); Red Cell Distribution Width 15.9 % (12-17); White Blood Count 9.1 10^3/uL (3.6-10.2)
[2023-01-07] MEDS: Albuterol 2.5mg/3 ml (0.083%) NEB.SOLN INH SCH ×4 (06:46→19:32)
[2023-01-07 06:54] LABS: Calcium 8.9 mg/dL (8.6-10.3); Creatinine, Serum 0.94 mg/dL (0.67-1.17); eGFR CKD-EPI 88.9 (>60)
[2023-01-07] MEDS: SPIRIVA Respimat (tiotropium) 2.5 mcg/inh Inhaler INH SCH (07:00)
[2023-01-07] MEDS: Mometasone/Formoter 200/5 MDI INH SCH ×2 (07:01→19:32)
[2023-01-07 07:07] LABS: TSH Ultra Thyroid Stim Horm 2.79 mcIU/mL (0.34-5.60)
[2023-01-07 07:09] LABS: Free T3 2.3 pg/mL (2.5-3.9)
[2023-01-07 07:10] LABS: Free T4 1.09 ng/dL (0.61-1.12)
[2023-01-07] MEDS: Polyethylene Glycol 3350 17 GM PACKET PO PRN (09:10)
[2023-01-07] MEDS: Fluticasone NASAL SPRAY 50MCG 16 gm SPRAY BTL INTRANASAL SCH (09:15)
[2023-01-07] MEDS: Lidocaine PATCH 5% PATCH TRANSDERM SCH (09:16)
[2023-01-07] MEDS: DOXYcycline 100 MG in NS 0.9% 250 ml 250 ML IVPB SCH ×2 (09:28→21:18)
[2023-01-07] MEDS: Enoxaparin 40 MG/0.4 ML SYR SUBCUT SCH (16:10)
[2023-01-08] MEDS: Acetylcysteine INH SOL (RT) 200 MG/ML 4 ML VIAL INH SCH ×3 (00:05→19:33)
[2023-01-08] MEDS: Morphine 2 MG/ML SYRINGE IV PRN ×4 (00:54→21:10)
[2023-01-08] MEDS: Senna TAB 8.6 mg TAB PO PRN ×2 (04:57→21:09)
[2023-01-08] MEDS: Magnesium Hydroxide LIQ 30 ML UDC PO PRN (04:59)
[2023-01-08] MEDS: cefTRIAXone 1 gm/50 mL D5W 1 GM/50 ML BAG IV SCH (06:29)
[2023-01-08] MEDS ORDERED: Acetylcysteine INH SOL (RT) 200 MG/ML 4 ML VIAL INH SCH (07:00)
[2023-01-08] MEDS: Albuterol 2.5mg/3 ml (0.083%) NEB.SOLN INH SCH ×4 (07:04→19:30)
[2023-01-08] MEDS: Mometasone/Formoter 200/5 MDI INH SCH ×2 (07:07→19:34)
[2023-01-08] MEDS: SPIRIVA Respimat (tiotropium) 2.5 mcg/inh Inhaler INH SCH (07:07)
[2023-01-08] MEDS: DOXYcycline 100 MG in NS 0.9% 250 ml 250 ML IVPB SCH ×2 (08:53→21:11)
[2023-01-08] MEDS: Polyethylene Glycol 3350 17 GM PACKET PO PRN (08:56)
[2023-01-08] MEDS: Fluticasone NASAL SPRAY 50MCG 16 gm SPRAY BTL INTRANASAL SCH (08:59)
[2023-01-08] MEDS: Lidocaine PATCH 5% PATCH TRANSDERM SCH (09:00)
[2023-01-08] MEDS: Nystatin TOP POWDER 15 GM BTL TOPICAL SCH ×3 (11:10→21:11)
[2023-01-08] MEDS: Enoxaparin 40 MG/0.4 ML SYR SUBCUT SCH (16:05)
[2023-01-09 06:27] LABS: ABS Basophils 0.1 10^3/uL (0.0-0.1); ABS Eosinophils 0.1 10^3/uL (0.0-0.5); ABS Lymphocytes 1.6 10^3/uL (1.0-4.8); ABS Monocytes 0.6 10^3/uL (0.0-1.1); ABS Neutrophils 12.4 10^3/uL (1.5-7.6); ABS Nucleated RBC 0.02 10^3/ul; Eosinophil % 0.5 %; Hemoglobin 12.2 g/dL (13.2-16.3); Lymphocyte % 10.7 %; Mean Corpuscular Hemoglobin 27.6 pg (27-33); Mean Corpuscular Hgb Conc 32.1 g/dL (31-36); Mean Corpuscular Volume 86.1 fL (80-97); Nucleated Red Blood Cells % 0.1 /100 WBC (0.0-0.4); Platelet Count 423 10^3/uL (150-450); Red Blood Count 4.41 10^6/uL (4.06-5.63); Red Cell Distribution Width 16.1 % (12-17); White Blood Count 14.7 10^3/uL (3.6-10.2)
[2023-01-09] MEDS: cefTRIAXone 1 gm/50 mL D5W 1 GM/50 ML BAG IV SCH (06:29)
[2023-01-09 06:36] LABS: Calcium 8.9 mg/dL (8.6-10.3); Creatinine, Serum 0.88 mg/dL (0.67-1.17); Potassium 4.2 mmol/L (3.5-5.0); eGFR CKD-EPI 94.2 (>60)
[2023-01-09] MEDS: Albuterol 2.5mg/3 ml (0.083%) NEB.SOLN INH SCH ×4 (06:50→20:26)
[2023-01-09] MEDS: Acetylcysteine INH SOL (RT) 200 MG/ML 4 ML VIAL INH SCH ×2 (06:50→20:30)
[2023-01-09] MEDS: Mometasone/Formoter 200/5 MDI INH SCH ×2 (06:50→20:31)
[2023-01-09] MEDS: SPIRIVA Respimat (tiotropium) 2.5 mcg/inh Inhaler INH SCH ×2 (06:52→07:01)
[2023-01-09] MEDS: DOXYcycline 100 MG in NS 0.9% 250 ml 250 ML IVPB SCH ×2 (08:56→21:13)
[2023-01-09] MEDS: Polyethylene Glycol 3350 17 GM PACKET PO PRN (08:59)
[2023-01-09] MEDS: Lidocaine PATCH 5% PATCH TRANSDERM SCH (08:59)
[2023-01-09] MEDS: Magnesium Hydroxide LIQ 30 ML UDC PO PRN (09:01)
[2023-01-09] MEDS: Nystatin TOP POWDER 15 GM BTL TOPICAL SCH ×3 (09:03→21:13)
[2023-01-09] MEDS: Senna TAB 8.6 mg TAB PO PRN (09:04)
[2023-01-09] MEDS: Fluticasone NASAL SPRAY 50MCG 16 gm SPRAY BTL INTRANASAL SCH (09:07)
[2023-01-09] MEDS: Enoxaparin 40 MG/0.4 ML SYR SUBCUT SCH (14:08)
[2023-01-09] MEDS: Morphine 2 MG/ML SYRINGE IV PRN (21:54)
[2023-01-10] MEDS: cefTRIAXone 1 gm/50 mL D5W 1 GM/50 ML BAG IV SCH ×3 (05:48→10:45)
[2023-01-10 06:54] LABS: ABS Lymphocytes 1.4 10^3/uL (1.0-4.8); ABS Monocytes 0.8 10^3/uL (0.0-1.1); ABS Neutrophils 13.9 10^3/uL (1.5-7.6); ABS Nucleated RBC 0.01 10^3/ul; Eosinophil % 0.2 %; Hematocrit 36.3 % (38-53); Hemoglobin 11.8 g/dL (13.2-16.3); Lymphocyte % 8.9 %; Mean Corpuscular Hgb Conc 32.5 g/dL (31-36); Mean Corpuscular Volume 86.2 fL (80-97); Mean Platelet Volume 7.2 fL (7.5-11.2); Nucleated Red Blood Cells % 0.1 /100 WBC (0.0-0.4); Platelet Count 490 10^3/uL (150-450); Red Blood Count 4.22 10^6/uL (4.06-5.63); Red Cell Distribution Width 16.3 % (12-17); White Blood Count 16.2 10^3/uL (3.6-10.2)
[2023-01-10 06:55] LABS: INR 1.24 (0.88-1.18)
[2023-01-10 07:05] LABS: Creatinine, Serum 0.93 mg/dL (0.67-1.17)
[2023-01-10] MEDS: Albuterol 2.5mg/3 ml (0.083%) NEB.SOLN INH SCH ×4 (07:33→19:20)
[2023-01-10] MEDS: Acetylcysteine INH SOL (RT) 200 MG/ML 4 ML VIAL INH SCH (07:33)
[2023-01-10] MEDS: Mometasone/Formoter 200/5 MDI INH SCH ×2 (07:38→19:20)
[2023-01-10] MEDS: SPIRIVA Respimat (tiotropium) 2.5 mcg/inh Inhaler INH SCH (07:42)
[2023-01-10] MEDS ORDERED: Furosemide 20 mg/2 ml IV VIAL IV SLOW PU ONE (08:25)
[2023-01-10] MEDS: Lidocaine PATCH 5% PATCH TRANSDERM SCH (08:33)
[2023-01-10] MEDS: Nystatin TOP POWDER 15 GM BTL TOPICAL SCH ×3 (08:33→21:27)
[2023-01-10] MEDS: Fluticasone NASAL SPRAY 50MCG 16 gm SPRAY BTL INTRANASAL SCH (11:06)
[2023-01-10] MEDS: DOXYcycline 100 MG in NS 0.9% 250 ml 250 ML IVPB SCH ×2 (11:49→21:27)
[2023-01-10] MEDS: Enoxaparin 40 MG/0.4 ML SYR SUBCUT SCH (17:02)
[2023-01-10] MEDS: Polyethylene Glycol 3350 17 GM PACKET PO PRN (21:41)
[2023-01-11 06:18] LABS: ABS Eosinophils 0.1 10^3/uL (0.0-0.5); ABS Lymphocytes 1.5 10^3/uL (1.0-4.8); ABS Monocytes 0.9 10^3/uL (0.0-1.1); ABS Neutrophils 10.3 10^3/uL (1.5-7.6); ABS Nucleated RBC 0.01 10^3/ul; Eosinophil % 0.4 %; Hematocrit 34.9 % (38-53); Hemoglobin 11.4 g/dL (13.2-16.3); Lymphocyte % 11.5 %; Mean Corpuscular Hemoglobin 27.5 pg (27-33); Mean Corpuscular Hgb Conc 32.6 g/dL (31-36); Mean Corpuscular Volume 84.4 fL (80-97); Mean Platelet Volume 7.3 fL (7.5-11.2); Nucleated Red Blood Cells % 0.1 /100 WBC (0.0-0.4); Platelet Count 473 10^3/uL (150-450); Red Blood Count 4.13 10^6/uL (4.06-5.63); Red Cell Distribution Width 16.4 % (12-17); White Blood Count 12.7 10^3/uL (3.6-10.2)
[2023-01-11 06:39] LABS: Calcium 8.7 mg/dL (8.6-10.3); Creatinine, Serum 0.81 mg/dL (0.67-1.17); Potassium 3.7 mmol/L (3.5-5.0); eGFR CKD-EPI 96.6 (>60)
[2023-01-11] MEDS: Albuterol 2.5mg/3 ml (0.083%) NEB.SOLN INH SCH ×3 (07:04→19:00)
[2023-01-11] MEDS: Mometasone/Formoter 200/5 MDI INH SCH ×2 (07:05→19:00)
[2023-01-11] MEDS: SPIRIVA Respimat (tiotropium) 2.5 mcg/inh Inhaler INH SCH (07:05)
[2023-01-11] MEDS ORDERED: Sodium Phosphate ADULT ENEMA 133 ML BTL PR PRN (09:07)
[2023-01-11] MEDS: Lidocaine PATCH 5% PATCH TRANSDERM SCH (09:23)
[2023-01-11] MEDS: DOXYcycline 100 MG in NS 0.9% 250 ml 250 ML IVPB SCH (09:25)
[2023-01-11] MEDS: Fluticasone NASAL SPRAY 50MCG 16 gm SPRAY BTL INTRANASAL SCH (09:27)
[2023-01-11] MEDS: Nystatin TOP POWDER 15 GM BTL TOPICAL SCH ×3 (09:28→21:25)
[2023-01-11] MEDS: Morphine 2 MG/ML SYRINGE IV PRN ×2 (11:02→22:37)
[2023-01-11] MEDS: cefTRIAXone 1 gm/50 mL D5W 1 GM/50 ML BAG IV SCH (12:58)
[2023-01-11] MEDS: Enoxaparin 40 MG/0.4 ML SYR SUBCUT SCH (16:50)
[2023-01-11] MEDS: Senna TAB 8.6 mg TAB PO PRN (17:12)
[2023-01-11] MEDS: Senna TAB 8.6 mg TAB PO SCH (21:17)
[2023-01-11] MEDS: Magnesium Hydroxide LIQ 30 ML UDC PO SCH (21:22)
[2023-01-12] MEDS: Albuterol 2.5mg/3 ml (0.083%) NEB.SOLN INH SCH ×4 (02:01→19:43)
[2023-01-12] MEDS: Polyethylene Glycol 3350 17 GM PACKET PO PRN (05:38)
[2023-01-12] MEDS: Mometasone/Formoter 200/5 MDI INH SCH ×2 (06:53→19:43)
[2023-01-12] MEDS: SPIRIVA Respimat (tiotropium) 2.5 mcg/inh Inhaler INH SCH ×2 (06:58→07:05)
[2023-01-12] MEDS: Lidocaine PATCH 5% PATCH TRANSDERM SCH (08:38)
[2023-01-12] MEDS: Morphine 2 MG/ML SYRINGE IV PRN ×2 (08:40→18:28)
[2023-01-12] MEDS: Magnesium Hydroxide LIQ 30 ML UDC PO SCH ×2 (08:41→20:28)
[2023-01-12] MEDS: Polyethylene Glycol 3350 17 GM PACKET PO SCH (08:41)
[2023-01-12] MEDS: Fluticasone NASAL SPRAY 50MCG 16 gm SPRAY BTL INTRANASAL SCH (08:42)
[2023-01-12] MEDS: Nystatin TOP POWDER 15 GM BTL TOPICAL SCH ×3 (08:42→20:29)
[2023-01-12] MEDS ORDERED: SMOG Enema (MgOH-NS-Gly-MinO) 330 ML ENEMA PR ONE (09:22)
[2023-01-12] MEDS: Lactulose 30 ml UDC PO SCH ×2 (14:22→20:28)
[2023-01-12] MEDS: Magnesium Hydroxide LIQ 30 ML UDC PO PRN (14:23)
[2023-01-12] MEDS: Enoxaparin 40 MG/0.4 ML SYR SUBCUT SCH (14:24)
[2023-01-12] MEDS: Senna TAB 8.6 mg TAB PO SCH (20:31)
[2023-01-13] MEDS: Albuterol 2.5mg/3 ml (0.083%) NEB.SOLN INH SCH ×4 (01:00→19:16)
[2023-01-13 06:27] LABS: ABS Eosinophils 0.1 10^3/uL (0.0-0.5); ABS Lymphocytes 1.7 10^3/uL (1.0-4.8); ABS Monocytes 1.1 10^3/uL (0.0-1.1); ABS Neutrophils 9.3 10^3/uL (1.5-7.6); ABS Nucleated RBC 0.01 10^3/ul; Eosinophil % 0.7 %; Hematocrit 35.4 % (38-53); Hemoglobin 11.7 g/dL (13.2-16.3); Lymphocyte % 14.1 %; Mean Corpuscular Hemoglobin 28.3 pg (27-33); Mean Corpuscular Volume 85.7 fL (80-97); Mean Platelet Volume 7.2 fL (7.5-11.2); Nucleated Red Blood Cells % 0.1 /100 WBC (0.0-0.4); Platelet Count 552 10^3/uL (150-450); Red Blood Count 4.13 10^6/uL (4.06-5.63); Red Cell Distribution Width 16.5 % (12-17); White Blood Count 12.2 10^3/uL (3.6-10.2)
[2023-01-13 06:29] LABS: INR 1.23 (0.88-1.18)
[2023-01-13 07:04] LABS: Calcium 8.8 mg/dL (8.6-10.3); Creatinine, Serum 0.85 mg/dL (0.67-1.17); Magnesium 2.4 mg/dL (1.9-2.7); Potassium 4.6 mmol/L (3.5-5.0); eGFR CKD-EPI 95.2 (>60)
[2023-01-13] MEDS: SPIRIVA Respimat (tiotropium) 2.5 mcg/inh Inhaler INH SCH (07:39)
[2023-01-13] MEDS: Mometasone/Formoter 200/5 MDI INH SCH ×2 (07:40→19:17)
[2023-01-13] MEDS: Lidocaine PATCH 5% PATCH TRANSDERM SCH (09:32)
[2023-01-13] MEDS: Magnesium Hydroxide LIQ 30 ML UDC PO SCH ×2 (09:35→23:15)
[2023-01-13] MEDS: Nystatin TOP POWDER 15 GM BTL TOPICAL SCH ×3 (09:35→22:59)
[2023-01-13] MEDS: Fluticasone NASAL SPRAY 50MCG 16 gm SPRAY BTL INTRANASAL SCH (09:35)
[2023-01-13] MEDS: Lactulose 30 ml UDC PO SCH ×3 (09:35→23:14)
[2023-01-13] MEDS: Polyethylene Glycol 3350 17 GM PACKET PO SCH (09:36)
[2023-01-13] MEDS: Morphine 2 MG/ML SYRINGE IV PRN ×3 (10:30→22:49)
[2023-01-13] MEDS: Enoxaparin 40 MG/0.4 ML SYR SUBCUT SCH (17:19)
[2023-01-13] MEDS: Senna TAB 8.6 mg TAB PO SCH (22:55)
[2023-01-14] MEDS: Albuterol 2.5mg/3 ml (0.083%) NEB.SOLN INH SCH ×4 (00:57→19:25)
[2023-01-14] MEDS: Morphine 2 MG/ML SYRINGE IV PRN (04:16)
[2023-01-14] MEDS: SPIRIVA Respimat (tiotropium) 2.5 mcg/inh Inhaler INH SCH (07:25)
[2023-01-14] MEDS: Mometasone/Formoter 200/5 MDI INH SCH ×2 (07:25→19:25)
[2023-01-14] MEDS: Polyethylene Glycol 3350 17 GM PACKET PO SCH (09:44)
[2023-01-14] MEDS: Lidocaine PATCH 5% PATCH TRANSDERM SCH (09:48)
[2023-01-14] MEDS: Nystatin TOP POWDER 15 GM BTL TOPICAL SCH ×3 (09:53→21:17)
[2023-01-14] MEDS: Fluticasone NASAL SPRAY 50MCG 16 gm SPRAY BTL INTRANASAL SCH (09:56)
[2023-01-14] MEDS: Senna TAB 8.6 mg TAB PO SCH (21:16)
[2023-01-15] MEDS: Albuterol 2.5mg/3 ml (0.083%) NEB.SOLN INH SCH ×4 (00:19→19:00)
[2023-01-15] MEDS: Morphine 2 MG/ML SYRINGE IV PRN ×3 (02:16→13:33)
[2023-01-15] MEDS: SPIRIVA Respimat (tiotropium) 2.5 mcg/inh Inhaler INH SCH (07:31)
[2023-01-15] MEDS: Mometasone/Formoter 200/5 MDI INH SCH ×2 (07:31→19:00)
[2023-01-15] MEDS: Polyethylene Glycol 3350 17 GM PACKET PO SCH (07:51)
[2023-01-15 09:04] LABS: INR 1.27 (0.88-1.18)
[2023-01-15] MEDS: Nystatin TOP POWDER 15 GM BTL TOPICAL SCH ×2 (09:06→15:25)
[2023-01-15] MEDS: Fluticasone NASAL SPRAY 50MCG 16 gm SPRAY BTL INTRANASAL SCH (09:06)
[2023-01-15] MEDS: Lidocaine PATCH 5% PATCH TRANSDERM SCH (09:07)
[2023-01-15] MEDS ORDERED: ceFAZolin 2 GM in NS PREMIX 2 GM/100 ML BAG IVPB ONE (21:15)
[2023-01-15] MEDS ORDERED: Bupivacaine 0.5% SDV PF 30ML VIAL ONE (21:31)
[2023-01-15] MEDS ORDERED: ROPIVACAINE 5 MG/ML 30 ML BTL (0.5%) ONE ×2 (21:36→23:52)
[2023-01-15] MEDS ORDERED: Propofol 10 MG/ML 20 ML BTL ONE (21:36)
[2023-01-15] MEDS ORDERED: Lidocaine 2% PF 5 ML VIAL ONE (21:37)
[2023-01-15] MEDS ORDERED: Rocuronium 50 mg VIAL 10 mg/ml 5 ml VIAL (50 mg) ONE ×2 (21:37→22:30)
[2023-01-15] MEDS ORDERED: Midazolam 2 mg/2 ml VIAL 1 mg/ml 2 ml VIAL (2 mg) ONE (21:40)
[2023-01-15] MEDS ORDERED: fentaNYL 100 mcg/2 ml 50 MCG/ML VIAL ONE (21:40)
[2023-01-15] MEDS ORDERED: Phenylephrine 40 mcg/mL 10mL (400mcg) SYRINGE ONE (22:40)
[2023-01-15] MEDS ORDERED: Ondansetron 4 mg VIAL 2 MG/ML 2 ml VIAL ONE (23:13)
[2023-01-15] MEDS ORDERED: Sugammadex 500 MG/5 ML 5 ml VIAL IV PUSH ONE (23:13)
[2023-01-15] MEDS ORDERED: Acetaminophen IV 1 GM/100ML 1,000 MG/100 ML BAG IV ONE (23:21)
[2023-01-16] MEDS ORDERED: fentaNYL 100 mcg/2 ml 50 MCG/ML VIAL IV PRN (00:31)
[2023-01-16] MEDS ORDERED: Levalbuterol 0.63MG/3ML NEB UNIT OF USE INH PRN (00:31)
[2023-01-16] MEDS ORDERED: Ondansetron 4 mg VIAL 2 MG/ML 2 ml VIAL IV PRN (00:31)
[2023-01-16] MEDS ORDERED: Naloxone 0.4 mg VIAL 0.4 mg/ml 1 ml VIAL IV PRN (00:31)
[2023-01-16] MEDS ORDERED: fentaNYL 100 mcg/2 ml 50 MCG/ML VIAL ONE (00:34)
[2023-01-16] MEDS: Senna TAB 8.6 mg TAB PO SCH ×2 (01:00→20:06)
[2023-01-16] MEDS: Nystatin TOP POWDER 15 GM BTL TOPICAL SCH ×4 (01:00→20:06)
[2023-01-16] MEDS: Albuterol 2.5mg/3 ml (0.083%) NEB.SOLN INH SCH ×4 (02:37→19:12)
[2023-01-16] MEDS: Morphine 2 MG/ML SYRINGE IV PRN ×3 (04:44→17:01)
[2023-01-16] MEDS: ceFAZolin 1 GM in Dextrose 1 GM/50 ML BAG IVPB SCH ×3 (06:02→22:26)
[2023-01-16 06:33] LABS: ABS Basophils 0.1 10^3/uL (0.0-0.1); ABS Lymphocytes 1.4 10^3/uL (1.0-4.8); ABS Monocytes 1.2 10^3/uL (0.0-1.1); ABS Neutrophils 10.8 10^3/uL (1.5-7.6); ABS Nucleated RBC 0.01 10^3/ul; Eosinophil % 0.2 %; Hematocrit 38.1 % (38-53); Hemoglobin 12.4 g/dL (13.2-16.3); Lymphocyte % 10.7 %; Mean Corpuscular Hemoglobin 27.9 pg (27-33); Mean Corpuscular Hgb Conc 32.7 g/dL (31-36); Mean Corpuscular Volume 85.3 fL (80-97); Mean Platelet Volume 7.5 fL (7.5-11.2); Nucleated Red Blood Cells % 0.1 /100 WBC (0.0-0.4); Platelet Count 542 10^3/uL (150-450); Red Blood Count 4.46 10^6/uL (4.06-5.63); White Blood Count 13.5 10^3/uL (3.6-10.2)
[2023-01-16] MEDS: Senna TAB 8.6 mg TAB PO PRN (06:36)
[2023-01-16 06:51] LABS: Calcium 8.8 mg/dL (8.6-10.3); Creatinine, Serum 0.89 mg/dL (0.67-1.17); eGFR CKD-EPI 93.9 (>60)
[2023-01-16 07:10] LABS: Potassium 4.8 mmol/L (3.5-5.0)
[2023-01-16] MEDS: Mometasone/Formoter 200/5 MDI INH SCH ×2 (07:32→19:14)
[2023-01-16] MEDS: SPIRIVA Respimat (tiotropium) 2.5 mcg/inh Inhaler INH SCH (07:32)
[2023-01-16] MEDS: Lidocaine PATCH 5% PATCH TRANSDERM SCH (09:20)
[2023-01-16] MEDS: Fluticasone NASAL SPRAY 50MCG 16 gm SPRAY BTL INTRANASAL SCH (09:20)
[2023-01-16] MEDS: Enoxaparin 40 MG/0.4 ML SYR SUBCUT SCH (09:20)
[2023-01-16] MEDS: Polyethylene Glycol 3350 17 GM PACKET PO SCH (09:20)
[2023-01-17 06:57] LABS: Hematocrit 33.3 % (38-53); Hemoglobin 10.7 g/dL (13.2-16.3); Mean Corpuscular Hemoglobin 27.6 pg (27-33); Mean Corpuscular Hgb Conc 32.2 g/dL (31-36); Mean Corpuscular Volume 85.8 fL (80-97); Platelet Count 491 10^3/uL (150-450); Red Blood Count 3.88 10^6/uL (4.06-5.63); Red Cell Distribution Width 16.7 % (12-17)
[2023-01-17] MEDS: SPIRIVA Respimat (tiotropium) 2.5 mcg/inh Inhaler INH SCH (07:33)
[2023-01-17] MEDS: Albuterol 2.5mg/3 ml (0.083%) NEB.SOLN INH SCH ×3 (07:33→19:58)
[2023-01-17] MEDS: Mometasone/Formoter 200/5 MDI INH SCH ×2 (07:33→19:59)
[2023-01-17] MEDS: Polyethylene Glycol 3350 17 GM PACKET PO SCH (07:56)
[2023-01-17] MEDS: Enoxaparin 40 MG/0.4 ML SYR SUBCUT SCH (07:56)
[2023-01-17] MEDS: Lidocaine PATCH 5% PATCH TRANSDERM SCH (07:56)
[2023-01-17] MEDS: Fluticasone NASAL SPRAY 50MCG 16 gm SPRAY BTL INTRANASAL SCH (07:57)
[2023-01-17] MEDS: Nystatin TOP POWDER 15 GM BTL TOPICAL SCH ×3 (07:58→20:12)
[2023-01-17] MEDS: Morphine 2 MG/ML SYRINGE IV PRN ×2 (12:16→23:03)
[2023-01-17] MEDS: Senna TAB 8.6 mg TAB PO SCH (20:09)
[2023-01-18] MEDS: Mometasone/Formoter 200/5 MDI INH SCH ×2 (07:17→19:41)
[2023-01-18] MEDS: Albuterol 2.5mg/3 ml (0.083%) NEB.SOLN INH SCH ×3 (07:17→19:41)
[2023-01-18] MEDS: SPIRIVA Respimat (tiotropium) 2.5 mcg/inh Inhaler INH SCH (07:17)
[2023-01-18] MEDS: Morphine 2 MG/ML SYRINGE IV PRN ×2 (08:25→12:22)
[2023-01-18] MEDS: Enoxaparin 40 MG/0.4 ML SYR SUBCUT SCH (08:27)
[2023-01-18] MEDS: Lidocaine PATCH 5% PATCH TRANSDERM SCH (08:27)
[2023-01-18] MEDS: Nystatin TOP POWDER 15 GM BTL TOPICAL SCH ×3 (08:29→22:14)
[2023-01-18] MEDS: Fluticasone NASAL SPRAY 50MCG 16 gm SPRAY BTL INTRANASAL SCH (08:29)
[2023-01-18] MEDS: Polyethylene Glycol 3350 17 GM PACKET PO SCH (08:43)
[2023-01-18] MEDS ORDERED: Albuterol 2.5mg/3 ml (0.083%) NEB.SOLN INH PRN (19:44)
[2023-01-18] MEDS: Senna TAB 8.6 mg TAB PO SCH (20:43)
[2023-01-19] MEDS: Mometasone/Formoter 200/5 MDI INH SCH ×2 (07:53→19:13)
[2023-01-19] MEDS: SPIRIVA Respimat (tiotropium) 2.5 mcg/inh Inhaler INH SCH (07:53)
[2023-01-19] MEDS: Enoxaparin 40 MG/0.4 ML SYR SUBCUT SCH (08:04)
[2023-01-19] MEDS: Morphine 2 MG/ML SYRINGE IV PRN ×2 (08:05→14:29)
[2023-01-19] MEDS: Fluticasone NASAL SPRAY 50MCG 16 gm SPRAY BTL INTRANASAL SCH (08:05)
[2023-01-19] MEDS: Lidocaine PATCH 5% PATCH TRANSDERM SCH (08:05)
[2023-01-19] MEDS: Nystatin TOP POWDER 15 GM BTL TOPICAL SCH ×3 (08:05→21:12)
[2023-01-19] MEDS: Polyethylene Glycol 3350 17 GM PACKET PO SCH (08:05)
[2023-01-19] MEDS: Senna TAB 8.6 mg TAB PO SCH (21:12)
[2023-01-20] MEDS: Morphine 2 MG/ML SYRINGE IV PRN ×2 (03:46→14:05)
[2023-01-20] MEDS: Senna TAB 8.6 mg TAB PO PRN (06:18)
[2023-01-20 06:24] LABS: ABS Basophils 0.1 10^3/uL (0.0-0.1); ABS Eosinophils 0.1 10^3/uL (0.0-0.5); ABS Lymphocytes 0.9 10^3/uL (1.0-4.8); ABS Monocytes 0.9 10^3/uL (0.0-1.1); ABS Neutrophils 8.3 10^3/uL (1.5-7.6); ABS Nucleated RBC 0.02 10^3/ul; Hematocrit 31.5 % (38-53); Hemoglobin 10.3 g/dL (13.2-16.3); Lymphocyte % 8.4 %; Mean Corpuscular Hemoglobin 27.9 pg (27-33); Mean Corpuscular Hgb Conc 32.6 g/dL (31-36); Mean Corpuscular Volume 85.7 fL (80-97); Mean Platelet Volume 6.9 fL (7.5-11.2); Nucleated Red Blood Cells % 0.2 /100 WBC (0.0-0.4); Platelet Count 387 10^3/uL (150-450); Red Blood Count 3.68 10^6/uL (4.06-5.63); Red Cell Distribution Width 17.1 % (12-17); White Blood Count 10.2 10^3/uL (3.6-10.2)
[2023-01-20 06:40] LABS: Calcium 8.4 mg/dL (8.6-10.3); Creatinine, Serum 0.8 mg/dL (0.67-1.17); Magnesium 2.2 mg/dL (1.9-2.7); Potassium 3.9 mmol/L (3.5-5.0)
[2023-01-20] MEDS: Mometasone/Formoter 200/5 MDI INH SCH ×2 (07:35→19:50)
[2023-01-20] MEDS: SPIRIVA Respimat (tiotropium) 2.5 mcg/inh Inhaler INH SCH (07:35)
[2023-01-20] MEDS: Lidocaine PATCH 5% PATCH TRANSDERM SCH (07:44)
[2023-01-20] MEDS: Polyethylene Glycol 3350 17 GM PACKET PO SCH (07:45)
[2023-01-20] MEDS: Enoxaparin 40 MG/0.4 ML SYR SUBCUT SCH (07:47)
[2023-01-20] MEDS: Fluticasone NASAL SPRAY 50MCG 16 gm SPRAY BTL INTRANASAL SCH (07:48)
[2023-01-20] MEDS: Nystatin TOP POWDER 15 GM BTL TOPICAL SCH ×3 (07:51→20:17)
[2023-01-20] MEDS: Senna TAB 8.6 mg TAB PO SCH (20:17)
[2023-01-21] MEDS: Morphine 2 MG/ML SYRINGE IV PRN ×4 (03:26→21:50)
[2023-01-21] MEDS: Mometasone/Formoter 200/5 MDI INH SCH ×2 (07:31→19:29)
[2023-01-21] MEDS: SPIRIVA Respimat (tiotropium) 2.5 mcg/inh Inhaler INH SCH (07:31)
[2023-01-21] MEDS: Polyethylene Glycol 3350 17 GM PACKET PO SCH (08:25)
[2023-01-21] MEDS: Nystatin TOP POWDER 15 GM BTL TOPICAL SCH ×3 (08:25→20:21)
[2023-01-21] MEDS: Enoxaparin 40 MG/0.4 ML SYR SUBCUT SCH (08:25)
[2023-01-21] MEDS: Magnesium Hydroxide LIQ 30 ML UDC PO PRN (08:26)
[2023-01-21] MEDS: Senna TAB 8.6 mg TAB PO PRN (08:26)
[2023-01-21] MEDS: Lidocaine PATCH 5% PATCH TRANSDERM SCH (08:36)
[2023-01-21] MEDS: Fluticasone NASAL SPRAY 50MCG 16 gm SPRAY BTL INTRANASAL SCH (08:38)
[2023-01-21] MEDS: Senna TAB 8.6 mg TAB PO SCH (20:20)
[2023-01-22] MEDS: Morphine 2 MG/ML SYRINGE IV PRN ×2 (04:17→14:19)
[2023-01-22] MEDS: SPIRIVA Respimat (tiotropium) 2.5 mcg/inh Inhaler INH SCH (07:22)
[2023-01-22] MEDS: Mometasone/Formoter 200/5 MDI INH SCH ×2 (07:22→18:38)
[2023-01-22] MEDS: Lidocaine PATCH 5% PATCH TRANSDERM SCH (07:59)
[2023-01-22] MEDS: Enoxaparin 40 MG/0.4 ML SYR SUBCUT SCH (08:00)
[2023-01-22] MEDS: Polyethylene Glycol 3350 17 GM PACKET PO SCH (08:00)
[2023-01-22] MEDS: Fluticasone NASAL SPRAY 50MCG 16 gm SPRAY BTL INTRANASAL SCH (08:01)
[2023-01-22] MEDS: Nystatin TOP POWDER 15 GM BTL TOPICAL SCH ×3 (08:27→19:56)
[2023-01-22] MEDS: Senna TAB 8.6 mg TAB PO SCH (19:43)
[2023-01-23] MEDS: Morphine 2 MG/ML SYRINGE IV PRN ×2 (02:20→12:11)
[2023-01-23 06:57] LABS: ABS Eosinophils 0.1 10^3/uL (0.0-0.5); ABS Lymphocytes 1.2 10^3/uL (1.0-4.8); ABS Monocytes 0.9 10^3/uL (0.0-1.1); ABS Neutrophils 6.3 10^3/uL (1.5-7.6); ABS Nucleated RBC 0.01 10^3/ul; Eosinophil % 1.4 %; Hemoglobin 9.9 g/dL (13.2-16.3); Lymphocyte % 14.4 %; Mean Corpuscular Hemoglobin 27.7 pg (27-33); Mean Corpuscular Volume 84.1 fL (80-97); Mean Platelet Volume 6.6 fL (7.5-11.2); Nucleated Red Blood Cells % 0.1 /100 WBC (0.0-0.4); Platelet Count 368 10^3/uL (150-450); Red Blood Count 3.57 10^6/uL (4.06-5.63); White Blood Count 8.6 10^3/uL (3.6-10.2)
[2023-01-23] MEDS: Mometasone/Formoter 200/5 MDI INH SCH (07:52)
[2023-01-23] MEDS: SPIRIVA Respimat (tiotropium) 2.5 mcg/inh Inhaler INH SCH (07:52)
[2023-01-23] MEDS: Polyethylene Glycol 3350 17 GM PACKET PO SCH (10:04)
[2023-01-23] MEDS: Enoxaparin 40 MG/0.4 ML SYR SUBCUT SCH (10:05)
[2023-01-23] MEDS: Lidocaine PATCH 5% PATCH TRANSDERM SCH (10:05)
[2023-01-23] MEDS: Fluticasone NASAL SPRAY 50MCG 16 gm SPRAY BTL INTRANASAL SCH (10:08)
[2023-01-23] MEDS: Nystatin TOP POWDER 15 GM BTL TOPICAL SCH (10:09)
[2023-01-23 10:30] VITALS: BP 97/62
== END 2023-01-23 13:00 | DRG 853 ==
LOC: ED 17:51 → SUATTDRO 20:50 → EDHOLD 20:50 → MED 12-31 00:33 → ICU 12-31 06:30 → MED 01-01 16:14
PROVIDERS: ADMIT Internal Medicine; ATTEND Internal Medicine

== ENCOUNTER 2023-01-21 14:12 | Inpatient (IN) ==
[2023-01-23] MEDS: Mometasone/Formoter 200/5 MDI INH SCH (19:37)
[2023-01-24 06:13] LABS: ABS Eosinophils 0.1 10^3/uL (0.0-0.5); ABS Lymphocytes 1.3 10^3/uL (1.0-4.8); ABS Monocytes 0.8 10^3/uL (0.0-1.1); ABS Neutrophils 6.7 10^3/uL (1.5-7.6); ABS Nucleated RBC 0.01 10^3/ul; Eosinophil % 1.3 %; Hematocrit 33.8 % (38-53); Lymphocyte % 14.1 %; Mean Corpuscular Hemoglobin 27.5 pg (27-33); Mean Corpuscular Hgb Conc 32.7 g/dL (31-36); Mean Corpuscular Volume 84.1 fL (80-97); Mean Platelet Volume 6.8 fL (7.5-11.2); Nucleated Red Blood Cells % 0.2 /100 WBC (0.0-0.4); Platelet Count 410 10^3/uL (150-450); Red Blood Count 4.02 10^6/uL (4.06-5.63); Red Cell Distribution Width 17.7 % (12-17); White Blood Count 8.9 10^3/uL (3.6-10.2)
[2023-01-24 06:31] LABS: Albumin 2.9 g/dL (3.2-5.2); Albumin/Globulin Ratio 0.8 (1-3); Calcium 8.8 mg/dL (8.6-10.3); Creatinine, Serum 0.85 mg/dL (0.67-1.17); Globulin 3.8 g/dL (2-4); Potassium 4.3 mmol/L (3.5-5.0); Total Bilirubin 0.4 mg/dL (0.2-1.0); Total Protein 6.7 g/dL (6.4-8.9); eGFR CKD-EPI 95.2 (>60)
[2023-01-24] MEDS: Mometasone/Formoter 200/5 MDI INH SCH ×2 (08:07→19:35)
[2023-01-24] MEDS: SPIRIVA Respimat (tiotropium) 2.5 mcg/inh Inhaler INH SCH (08:09)
[2023-01-24] MEDS: Enoxaparin 40 MG/0.4 ML SYR SUBCUT SCH (08:27)
[2023-01-24] MEDS: Fluticasone NASAL SPRAY 50MCG 16 gm SPRAY BTL BOTH NARES SCH (08:28)
[2023-01-24] MEDS: Senna TAB 8.6 mg TAB PO PRN (20:54)
[2023-01-25] MEDS: Enoxaparin 40 MG/0.4 ML SYR SUBCUT SCH (07:59)
[2023-01-25] MEDS: Mometasone/Formoter 200/5 MDI INH SCH ×2 (08:00→19:19)
[2023-01-25] MEDS: SPIRIVA Respimat (tiotropium) 2.5 mcg/inh Inhaler INH SCH (08:11)
[2023-01-25] MEDS: Fluticasone NASAL SPRAY 50MCG 16 gm SPRAY BTL BOTH NARES SCH (08:13)
[2023-01-25] MEDS: Senna TAB 8.6 mg TAB PO PRN (21:13)
[2023-01-26] MEDS: Enoxaparin 40 MG/0.4 ML SYR SUBCUT SCH (11:39)
[2023-01-26] MEDS: Mometasone/Formoter 200/5 MDI INH SCH ×2 (12:01→21:20)
[2023-01-26] MEDS: SPIRIVA Respimat (tiotropium) 2.5 mcg/inh Inhaler INH SCH (12:02)
[2023-01-26] MEDS: Fluticasone NASAL SPRAY 50MCG 16 gm SPRAY BTL BOTH NARES SCH (12:02)
[2023-01-27] MEDS: Mometasone/Formoter 200/5 MDI INH SCH ×2 (07:45→20:43)
[2023-01-27] MEDS: Enoxaparin 40 MG/0.4 ML SYR SUBCUT SCH (08:27)
[2023-01-27] MEDS: SPIRIVA Respimat (tiotropium) 2.5 mcg/inh Inhaler INH SCH (08:28)
[2023-01-27] MEDS: Fluticasone NASAL SPRAY 50MCG 16 gm SPRAY BTL BOTH NARES SCH (08:28)
[2023-01-28] MEDS: Mometasone/Formoter 200/5 MDI INH SCH ×2 (07:24→19:34)
[2023-01-28] MEDS: Enoxaparin 40 MG/0.4 ML SYR SUBCUT SCH (07:25)
[2023-01-28] MEDS: Fluticasone NASAL SPRAY 50MCG 16 gm SPRAY BTL BOTH NARES SCH (07:26)
[2023-01-28] MEDS: SPIRIVA Respimat (tiotropium) 2.5 mcg/inh Inhaler INH SCH (07:27)
[2023-01-28 12:36] LABS: Urine Appearance Turbid; Urine Bilirubin 1+ (Negative); Urine Blood 1+ (Negative); Urine Color Amber; Urine Glucose Negative (Negative); Urine Ketones Negative (Negative); Urine Nitrite Positive (Negative); Urine Protein 1+(30 mg/dL) (Negative); Urine Specific Gravity 1.023 (1.002-1.030); Urine Urobilinogen Negative (Negative)
[2023-01-28 12:45] LABS: Urine Bacteria Absent (Absent); Urine Red Blood Cell 3+(>10/hpf) (Absent); Urine Squamous Epithelial Cell Present (Absent); Urine White Blood Cell 3+(>20/hpf) (Absent)
[2023-01-29] MEDS: SPIRIVA Respimat (tiotropium) 2.5 mcg/inh Inhaler INH SCH (08:12)
[2023-01-29] MEDS: Mometasone/Formoter 200/5 MDI INH SCH ×2 (08:12→20:50)
[2023-01-29] MEDS: Enoxaparin 40 MG/0.4 ML SYR SUBCUT SCH (08:12)
[2023-01-29] MEDS: Fluticasone NASAL SPRAY 50MCG 16 gm SPRAY BTL BOTH NARES SCH (08:13)
[2023-01-29] MEDS: Amoxicillin/Clavul 875/125 TAB (Augmentin 875 tab) PO SCH ×2 (10:01→20:36)
[2023-01-29] MEDS: Senna TAB 8.6 mg TAB PO PRN (20:36)
[2023-01-30] MEDS: Mometasone/Formoter 200/5 MDI INH SCH ×2 (10:08→20:18)
[2023-01-30] MEDS: Fluticasone NASAL SPRAY 50MCG 16 gm SPRAY BTL BOTH NARES SCH (10:10)
[2023-01-30] MEDS: Enoxaparin 40 MG/0.4 ML SYR SUBCUT SCH (10:10)
[2023-01-30] MEDS: SPIRIVA Respimat (tiotropium) 2.5 mcg/inh Inhaler INH SCH (10:19)
[2023-01-30] MEDS: Senna TAB 8.6 mg TAB PO PRN (20:09)
[2023-01-31 07:07] LABS: ABS Basophils 0.1 10^3/uL (0.0-0.1); ABS Lymphocytes 1.5 10^3/uL (1.0-4.8); ABS Monocytes 1.3 10^3/uL (0.0-1.1); ABS Neutrophils 10.7 10^3/uL (1.5-7.6); Eosinophil % 0.3 %; Hematocrit 32.4 % (38-53); Hemoglobin 10.5 g/dL (13.2-16.3); Lymphocyte % 11.2 %; Mean Corpuscular Hemoglobin 27.7 pg (27-33); Mean Corpuscular Hgb Conc 32.5 g/dL (31-36); Mean Corpuscular Volume 85.4 fL (80-97); Mean Platelet Volume 6.7 fL (7.5-11.2); Platelet Count 573 10^3/uL (150-450); Red Blood Count 3.79 10^6/uL (4.06-5.63); Red Cell Distribution Width 18.3 % (12-17); White Blood Count 13.6 10^3/uL (3.6-10.2)
[2023-01-31 07:26] LABS: Albumin/Globulin Ratio 0.8 (1-3); Calcium 8.9 mg/dL (8.6-10.3); Creatinine, Serum 0.92 mg/dL (0.67-1.17); Globulin 3.8 g/dL (2-4); Potassium 4.2 mmol/L (3.5-5.0); Total Bilirubin 0.5 mg/dL (0.2-1.0); Total Protein 6.8 g/dL (6.4-8.9); eGFR CKD-EPI 91.2 (>60)
[2023-01-31] MEDS: SPIRIVA Respimat (tiotropium) 2.5 mcg/inh Inhaler INH SCH (07:34)
[2023-01-31] MEDS: Mometasone/Formoter 200/5 MDI INH SCH ×2 (07:34→20:36)
[2023-01-31] MEDS: Fluticasone NASAL SPRAY 50MCG 16 gm SPRAY BTL BOTH NARES SCH (08:32)
[2023-01-31] MEDS: Enoxaparin 40 MG/0.4 ML SYR SUBCUT SCH (08:32)
[2023-02-01] MEDS: SPIRIVA Respimat (tiotropium) 2.5 mcg/inh Inhaler INH SCH (07:24)
[2023-02-01] MEDS: Mometasone/Formoter 200/5 MDI INH SCH ×2 (07:24→19:52)
[2023-02-01] MEDS: Enoxaparin 40 MG/0.4 ML SYR SUBCUT SCH (08:17)
[2023-02-01] MEDS: Fluticasone NASAL SPRAY 50MCG 16 gm SPRAY BTL BOTH NARES SCH (08:17)
[2023-02-01] MEDS: Senna TAB 8.6 mg TAB PO PRN (19:54)
[2023-02-02] MEDS: SPIRIVA Respimat (tiotropium) 2.5 mcg/inh Inhaler INH SCH (07:11)
[2023-02-02] MEDS: Mometasone/Formoter 200/5 MDI INH SCH ×2 (07:11→20:13)
[2023-02-02] MEDS: Enoxaparin 40 MG/0.4 ML SYR SUBCUT SCH (07:42)
[2023-02-02] MEDS: Fluticasone NASAL SPRAY 50MCG 16 gm SPRAY BTL BOTH NARES SCH (07:42)
[2023-02-02] MEDS: Magnesium Hydroxide LIQ 30 ML UDC PO PRN (20:13)
[2023-02-03] MEDS: Enoxaparin 40 MG/0.4 ML SYR SUBCUT SCH (09:17)
[2023-02-03] MEDS: Magnesium Hydroxide LIQ 30 ML UDC PO PRN (09:29)
[2023-02-03] MEDS: Mometasone/Formoter 200/5 MDI INH SCH ×2 (10:14→22:02)
[2023-02-03] MEDS: Fluticasone NASAL SPRAY 50MCG 16 gm SPRAY BTL BOTH NARES SCH (10:14)
[2023-02-03] MEDS: SPIRIVA Respimat (tiotropium) 2.5 mcg/inh Inhaler INH SCH (10:15)
[2023-02-04 06:09] VITALS: BP 125/84
[2023-02-04] MEDS: Fluticasone NASAL SPRAY 50MCG 16 gm SPRAY BTL BOTH NARES SCH (09:13)
[2023-02-04] MEDS: SPIRIVA Respimat (tiotropium) 2.5 mcg/inh Inhaler INH SCH (09:14)
[2023-02-04] MEDS: Mometasone/Formoter 200/5 MDI INH SCH (09:14)
[2023-02-04] MEDS: Enoxaparin 40 MG/0.4 ML SYR SUBCUT SCH (15:53)
== END 2023-02-04 16:30 | disposition home or self-care (01) | DRG 560 ==
LOC: PMRU 01-23 13:11
PROVIDERS: ADMIT Physical Medicine & Rehabilitation; ATTEND Physical Medicine & Rehabilitation

== ENCOUNTER 2023-02-24 16:35 | Observation (INO) ==
[2023-02-24] MEDS: Lactated Ringers 1000 ml BAG 1,000 ML IV SCH ×2 (19:16→21:23)
[2023-02-24 19:30] LABS: Hematocrit 39.4 % (38-53); Hemoglobin 12.6 g/dL (13.2-16.3); Mean Corpuscular Hemoglobin 26.8 pg (27-33); Mean Corpuscular Volume 83.7 fL (80-97); Mean Platelet Volume 7.3 fL (7.5-11.2); Platelet Count 592 10^3/uL (150-450); Red Cell Distribution Width 20.3 % (12-17); White Blood Count 8.7 10^3/uL (3.6-10.2)
[2023-02-24 19:46] LABS: Calcium 9.3 mg/dL (8.6-10.3); Creatinine, Serum 0.83 mg/dL (0.67-1.17); Potassium 3.5 mmol/L (3.5-5.0); eGFR CKD-EPI 95.9 (>60)
[2023-02-24] MEDS ORDERED: Enoxaparin 40 MG/0.4 ML SYR SUBCUT SCH (21:00)
[2023-02-24] MEDS ORDERED: Albuterol HFA INHALER 8 gm MDI INH PRN (21:34)
[2023-02-25] MEDS: Fluticasone NASAL SPRAY 50MCG 16 gm SPRAY BTL BOTH NARES SCH (08:57)
[2023-02-25] MEDS: SPIRIVA Respimat (tiotropium) 2.5 mcg/inh Inhaler INH SCH (08:58)
[2023-02-25] MEDS ORDERED: Famotidine IV 10 MG/ML 2 ml VIAL (20 mg) IV SLOW PU ONE (12:28)
[2023-02-25] MEDS ORDERED: Buffered Lidocaine 1% SYRIN 1 ml INTRADERM ONE (14:19)
[2023-02-25] MEDS ORDERED: Propofol 10 MG/ML 20 ML BTL ONE ×2 (14:58→16:07)
[2023-02-25] MEDS ORDERED: Phenylephrine 40 mcg/mL 10mL (400mcg) SYRINGE ONE ×3 (14:58→16:07)
[2023-02-25] MEDS ORDERED: Lidocaine 2% PF 5 ML VIAL ONE (14:58)
[2023-02-25] MEDS ORDERED: Lactated Ringers 1000 ml BAG 1,000 ML IV SCH (15:00)
[2023-02-25] MEDS: Lactated Ringers 1000 ml BAG 1,000 ML IV SCH (22:04)
[2023-02-26 07:48] LABS: ABS Eosinophils 0.1 10^3/uL (0.0-0.5); ABS Lymphocytes 1.7 10^3/uL (1.0-4.8); ABS Monocytes 0.6 10^3/uL (0.0-1.1); ABS Neutrophils 4.6 10^3/uL (1.5-7.6); ABS Nucleated RBC 0.01 10^3/ul; Eosinophil % 1.7 %; Hematocrit 39.3 % (38-53); Hemoglobin 12.3 g/dL (13.2-16.3); Lymphocyte % 24.5 %; Mean Corpuscular Hemoglobin 26.7 pg (27-33); Mean Corpuscular Hgb Conc 31.2 g/dL (31-36); Mean Corpuscular Volume 85.6 fL (80-97); Mean Platelet Volume 7.4 fL (7.5-11.2); Nucleated Red Blood Cells % 0.2 /100 WBC (0.0-0.4); Platelet Count 418 10^3/uL (150-450); Red Blood Count 4.59 10^6/uL (4.06-5.63); Red Cell Distribution Width 20.1 % (12-17); White Blood Count 7.1 10^3/uL (3.6-10.2)
[2023-02-26 07:54] LABS: Calcium 8.7 mg/dL (8.6-10.3); Potassium 3.7 mmol/L (3.5-5.0)
[2023-02-26 07:59] LABS: Creatinine, Serum 0.63 mg/dL (0.67-1.17); eGFR CKD-EPI 104.3 (>60)
[2023-02-26] MEDS: SPIRIVA Respimat (tiotropium) 2.5 mcg/inh Inhaler INH SCH (08:05)
[2023-02-26] MEDS: Fluticasone NASAL SPRAY 50MCG 16 gm SPRAY BTL BOTH NARES SCH (09:34)
[2023-02-26] MEDS: Lactated Ringers 1000 ml BAG 1,000 ML IV SCH (11:42)
[2023-02-26 18:00] VITALS: BP 106/64
== END 2023-02-26 20:35 | disposition home or self-care (01) ==
LOC: ED 16:35 → EDHOLD 16:35 → SUATTDRO 20:32 → EDHOLD 02-25 06:43 → MED 02-25 13:55
PROVIDERS: ADMIT Internal Medicine; ATTEND Internal Medicine
PROC: O.GIEGD (2023-02-25 11:05)

== ENCOUNTER 2023-04-03 15:59 | Inpatient (IN) ==
[2023-04-03 19:21] LABS: ABS Lymphocytes 0.5 10^3/uL (1.0-4.8); ABS Monocytes 0.4 10^3/uL (0.0-1.1); ABS Neutrophils 6.1 10^3/uL (1.5-7.6); Hematocrit 37.2 % (38-53); Lymphocyte % 6.9 %; Mean Corpuscular Hgb Conc 32.2 g/dL (31-36); Mean Corpuscular Volume 83.7 fL (80-97); Nucleated Red Blood Cells % 0.1 /100 WBC (0.0-0.4); Platelet Count 417 10^3/uL (150-450); Red Blood Count 4.44 10^6/uL (4.06-5.63); Red Cell Distribution Width 20.9 % (12-17)
[2023-04-03 19:37] LABS: ALT 12 U/L (7-52); Albumin 3.1 g/dL (3.2-5.2); Albumin/Globulin Ratio 0.9 (1-3); Alkaline Phosphatase 115 U/L (35-149); Blood Urea Nitrogen 34 mg/dL (6-24); C Reactive Protein 158.85 mg/L (<8.01); CO2 Carbon Dioxide 28 mmol/L (22-32); Chloride 105 mmol/L (101-111); Creatinine, Serum 0.79 mg/dL (0.67-1.17); Globulin 3.4 g/dL (2-4); Glucose 89 mg/dL (70-100); Lipase < 10 U/L (11.0-82.0); Magnesium 1.7 mg/dL (1.9-2.7); Sodium 140 mmol/L (135-145); Total Protein 6.5 g/dL (6.4-8.9); eGFR CKD-EPI 97.4 (>60)
[2023-04-03 19:43] LABS: High Sens Troponin Baseline 6 pg/mL (<20)
[2023-04-03 19:50] LABS: Anion Gap 7 mmol/L (2-16)
[2023-04-03] MEDS ORDERED: Iohexol 300 (CONTRAST) 10 ML SDV IV ONE (20:16)
[2023-04-03 20:43] LABS: Phosphorus 3.3 mg/dL (2.5-5.0); Potassium Redraw 3.6 mmol/L (3.5-5.0)
[2023-04-03 20:54] LABS: PCO2 Arterial 38 mmHg (35-45); PO2 Arterial 72 mmHg (80-100)
[2023-04-03] MEDS ORDERED: cefTRIAXone 1 gm/50 mL D5W 1 GM/50 ML BAG IV SCH (22:30)
[2023-04-03] MEDS: Acetaminophen IV 1 GM/100ML 1,000 MG/100 ML BAG IV PRN (23:39)
[2023-04-04 00:39] LABS: Urine Appearance Cloudy; Urine Bilirubin 1+ (Negative); Urine Blood Negative (Negative); Urine Color Amber; Urine Glucose Negative (Negative); Urine Ketones Negative (Negative); Urine Nitrite Positive (Negative); Urine Protein 2+(100 mg/dL) (Negative); Urine Specific Gravity 1.029 (1.002-1.030); Urine Urobilinogen Positive (Negative)
[2023-04-04] MEDS ORDERED: Albuterol 2.5mg/3 ml (0.083%) NEB.SOLN INH PRN (00:50)
[2023-04-04 00:51] LABS: Urine Bacteria 1+ (Absent); Urine Red Blood Cell Absent (Absent); Urine Squamous Epithelial Cell Present (Absent); Urine White Blood Cell 2+(11-20/hpf) (Absent)
[2023-04-04] MEDS: Enoxaparin 40 MG/0.4 ML SYR SUBCUT SCH ×2 (02:32→21:58)
[2023-04-04 05:16] LABS: ABS Lymphocytes 0.7 10^3/uL (1.0-4.8); ABS Monocytes 0.4 10^3/uL (0.0-1.1); ABS Neutrophils 6.9 10^3/uL (1.5-7.6); Hematocrit 34.3 % (38-53); Hemoglobin 11.3 g/dL (13.2-16.3); Lymphocyte % 9.1 %; Mean Corpuscular Hemoglobin 27.5 pg (27-33); Mean Corpuscular Hgb Conc 32.9 g/dL (31-36); Mean Corpuscular Volume 83.5 fL (80-97); Mean Platelet Volume 6.8 fL (7.5-11.2); Platelet Count 360 10^3/uL (150-450); Red Cell Distribution Width 20.9 % (12-17)
[2023-04-04 05:31] LABS: Albumin 2.6 g/dL (3.2-5.2); Albumin/Globulin Ratio 0.8 (1-3); Calcium 8.3 mg/dL (8.6-10.3); Creatinine, Serum 0.73 mg/dL (0.67-1.17); Globulin 3.2 g/dL (2-4); Potassium 3.7 mmol/L (3.5-5.0); Total Bilirubin 0.5 mg/dL (0.2-1.0); Total Protein 5.8 g/dL (6.4-8.9); eGFR CKD-EPI 99.7 (>60)
[2023-04-04] MEDS ORDERED: Iohexol 350 (CONTRAST) 500 ML MDV IV ONE (06:34)
[2023-04-04] MEDS ORDERED: Magnesium Sulfate IV 1GM/100ML 1 GM/100 ML BAG IV ONE (07:22)
[2023-04-04] MEDS ORDERED: SPIRIVA Respimat (tiotropium) 2.5 mcg/inh Inhaler INH SCH (09:00)
[2023-04-04 09:37] LABS: Magnesium 1.7 mg/dL (1.9-2.7)
[2023-04-04] MEDS ORDERED: Albuterol HFA INHALER 8 gm MDI INH PRN (10:00)
[2023-04-04] MEDS: KCL 10 MEQ/50 ML IVPREMIX 10 MEQ/50 ML BAG IV SCH ×3 (10:58→13:47)
[2023-04-04] MEDS: Acetaminophen IV 1 GM/100ML 1,000 MG/100 ML BAG IV PRN (12:16)
[2023-04-04] MEDS: Morphine 2 MG/ML SYRINGE IV PRN (12:40)
[2023-04-04] MEDS ORDERED: Acetaminophen IV 1 GM/100ML 1,000 MG/100 ML BAG IV PRN (12:45)
[2023-04-04] MEDS: ceFAZolin VIAL 2 GM in NS 0.9% 100 ml BAG 100 ML IVPB SCH ×2 (15:10→20:54)
[2023-04-05] MEDS: ceFAZolin VIAL 2 GM in NS 0.9% 100 ml BAG 100 ML IVPB SCH ×3 (04:43→21:19)
[2023-04-05 06:08] LABS: ABS Lymphocytes 0.6 10^3/uL (1.0-4.8); ABS Monocytes 0.4 10^3/uL (0.0-1.1); ABS Neutrophils 8.2 10^3/uL (1.5-7.6); Hematocrit 33.2 % (38-53); Hemoglobin 10.9 g/dL (13.2-16.3); Lymphocyte % 6.9 %; Mean Corpuscular Hemoglobin 27.5 pg (27-33); Mean Corpuscular Hgb Conc 32.8 g/dL (31-36); Mean Corpuscular Volume 83.8 fL (80-97); Mean Platelet Volume 6.9 fL (7.5-11.2); Platelet Count 362 10^3/uL (150-450); Red Blood Count 3.96 10^6/uL (4.06-5.63); Red Cell Distribution Width 20.2 % (12-17); White Blood Count 9.3 10^3/uL (3.6-10.2)
[2023-04-05 06:22] LABS: Calcium 8.2 mg/dL (8.6-10.3); Creatinine, Serum 0.64 mg/dL (0.67-1.17); Magnesium 1.9 mg/dL (1.9-2.7); Potassium 3.6 mmol/L (3.5-5.0); eGFR CKD-EPI 103.8 (>60)
[2023-04-05] MEDS: Mometasone/Formoter 200/5 MDI INH SCH ×2 (08:09→18:27)
[2023-04-05] MEDS: SPIRIVA Respimat (tiotropium) 2.5 mcg/inh Inhaler INH SCH (08:09)
[2023-04-05 09:07] LABS: % Iron Saturation 11 % (15-55); .Transferrin 126 mg/dL (203-362); Iron < 20 ug/dL (50-212); Total Iron Binding Capacity 176 mcg/dL (250-450); Unsaturated Iron Binding 156 ug/dL
[2023-04-05 09:30] LABS: Ferritin 188.6 ng/mL (24-336)
[2023-04-05 09:33] LABS: Folate 6.52 ng/mL (5.90-24.80)
[2023-04-05 09:34] LABS: Vitamin B12 1085 pg/mL (180-914)
[2023-04-05] MEDS: Lactated Ringers 1000 ml BAG 1,000 ML IV SCH (11:16)
[2023-04-05] MEDS ORDERED: Iohexol 300 (CONTRAST) 10 ML SDV IV ONE (14:00)
[2023-04-05] MEDS: Enoxaparin 40 MG/0.4 ML SYR SUBCUT SCH (21:16)
[2023-04-06] MEDS: Lactated Ringers 1000 ml BAG 1,000 ML IV SCH (01:12)
[2023-04-06] MEDS: ceFAZolin VIAL 2 GM in NS 0.9% 100 ml BAG 100 ML IVPB SCH ×3 (05:07→21:48)
[2023-04-06] MEDS ORDERED: Senna TAB 8.6 mg TAB PO PRN (07:13)
[2023-04-06] MEDS: Mometasone/Formoter 200/5 MDI INH SCH ×2 (07:29→19:29)
[2023-04-06] MEDS: SPIRIVA Respimat (tiotropium) 2.5 mcg/inh Inhaler INH SCH (07:29)
[2023-04-06] MEDS ORDERED: Naloxone 0.4 mg VIAL 0.4 mg/ml 1 ml VIAL ONE (07:58)
[2023-04-06] MEDS ORDERED: fentaNYL 100 mcg/2 ml 50 MCG/ML VIAL ONE (07:58)
[2023-04-06] MEDS ORDERED: Flumazenil 0.5 mg/5 ml 0.1 MG/ML 5 ml VIAL ONE ×2 (07:58→10:30)
[2023-04-06] MEDS ORDERED: Midazolam 5 mg/5 ml VIAL 1 mg/ml 5 ml VIAL (5 mg) ONE (07:58)
[2023-04-06] MEDS ORDERED: Midazolam 10 mg/10 ml VIAL 1 mg/ml 10 ml VIAL (10 mg) IV SLOW PU ONE (08:33)
[2023-04-06] MEDS ORDERED: fentaNYL 100 mcg/2 ml 50 MCG/ML VIAL IV SLOW PU ONE (08:33)
[2023-04-06] MEDS ORDERED: Flumazenil 0.5 mg/5 ml 0.1 MG/ML 5 ml VIAL IV ONE (10:32)
[2023-04-06 11:26] LABS: Hematocrit 44.6 % (38-53); Hemoglobin 14.1 g/dL (13.2-16.3); Mean Corpuscular Hemoglobin 26.9 pg (27-33); Mean Corpuscular Hgb Conc 31.6 g/dL (31-36); Mean Corpuscular Volume 85.1 fL (80-97); Red Blood Count 5.24 10^6/uL (4.06-5.63); Red Cell Distribution Width 20.8 % (12-17); White Blood Count 8.1 10^3/uL (3.6-10.2)
[2023-04-06] MEDS: Magnesium Hydroxide LIQ 30 ML UDC PO PRN (12:13)
[2023-04-06] MEDS: Senna TAB 8.6 mg TAB PO SCH ×2 (12:14→20:32)
[2023-04-06 12:30] LABS: Calcium 7.9 mg/dL (8.6-10.3); Magnesium 1.8 mg/dL (1.9-2.7); Potassium 3.6 mmol/L (3.5-5.0)
[2023-04-06 12:34] LABS: ABS Lymphocytes 0.9 10^3/uL (1.0-4.8); ABS Monocytes 0.6 10^3/uL (0.0-1.1); ABS Neutrophils 6.7 10^3/uL (1.5-7.6); Eosinophil % 0.3 %; Nucleated Red Blood Cells % 0.1 /100 WBC (0.0-0.4); Platelet Count Platelets clumped. 10^3/uL (150-450)
[2023-04-06 12:36] LABS: Creatinine, Serum 0.54 mg/dL (0.67-1.17); eGFR CKD-EPI 109.2 (>60)
[2023-04-06] MEDS ORDERED: Magnesium Sulfate 2 gm BAG 2 GM/50 ML BAG IVPB ONE (15:41)
[2023-04-06 17:41] LABS: Body Fluid Appearance Cloudy; Body Fluid Source Synovial Fluid
[2023-04-06 17:42] LABS: Body Fluid Color Red
[2023-04-06 20:14] LABS: Body Fluid WBC 2077 /mcL
[2023-04-06] MEDS: Polyethylene Glycol 3350 17 GM PACKET PO SCH (20:31)
[2023-04-06] MEDS: Enoxaparin 40 MG/0.4 ML SYR SUBCUT SCH (21:55)
[2023-04-06 22:49] LABS: Body Fluid Band 4 %; Body Fluid Meta 4 %; Body Fluid Mono 8 %; Body Fluid Other Cells 3; Body Fluid Total Cells Counted 200; Body Fluid Variant Lymph 1 %
[2023-04-07] MEDS: ceFAZolin VIAL 2 GM in NS 0.9% 100 ml BAG 100 ML IVPB SCH ×3 (05:38→22:01)
[2023-04-07 06:14] LABS: ABS Monocytes 0.8 10^3/uL (0.0-1.1); ABS Neutrophils 6.2 10^3/uL (1.5-7.6); Eosinophil % 0.2 %; Hematocrit 32.2 % (38-53); Hemoglobin 10.5 g/dL (13.2-16.3); Lymphocyte % 12.5 %; Mean Corpuscular Hemoglobin 27.4 pg (27-33); Mean Corpuscular Hgb Conc 32.6 g/dL (31-36); Mean Platelet Volume 7.1 fL (7.5-11.2); Platelet Count 321 10^3/uL (150-450); Red Blood Count 3.83 10^6/uL (4.06-5.63); Red Cell Distribution Width 20.1 % (12-17)
[2023-04-07 06:33] LABS: Calcium 7.7 mg/dL (8.6-10.3); Magnesium 2.2 mg/dL (1.9-2.7); Potassium 3.7 mmol/L (3.5-5.0)
[2023-04-07 06:39] LABS: Creatinine, Serum 0.58 mg/dL (0.67-1.17); eGFR CKD-EPI 106.9 (>60)
[2023-04-07] MEDS: SPIRIVA Respimat (tiotropium) 2.5 mcg/inh Inhaler INH SCH (08:06)
[2023-04-07] MEDS: Mometasone/Formoter 200/5 MDI INH SCH ×2 (08:07→19:30)
[2023-04-07] MEDS: Senna TAB 8.6 mg TAB PO SCH ×2 (08:26→22:17)
[2023-04-07] MEDS: Polyethylene Glycol 3350 17 GM PACKET PO SCH ×2 (08:27→22:00)
[2023-04-07] MEDS ORDERED: NS 0.9% 1000 ml BAG 1,000 ML IV SCH (11:45)
[2023-04-07] MEDS ORDERED: ceFAZolin 2 GM in NS PREMIX 2 GM/100 ML BAG IVPB ONE (15:01)
[2023-04-07] MEDS ORDERED: Ondansetron 4 mg VIAL 2 MG/ML 2 ml VIAL ONE (15:21)
[2023-04-07] MEDS ORDERED: Dexamethasone IV 4 MG/ML VIAL 1 ml VIAL ONE (15:21)
[2023-04-07] MEDS ORDERED: Lidocaine 2% PF 5 ML VIAL ONE (15:21)
[2023-04-07] MEDS ORDERED: Propofol 10 MG/ML 20 ML BTL ONE (15:21)
[2023-04-07] MEDS ORDERED: Morphine 4 MG/ML VIAL (1 ml) ONE (16:20)
[2023-04-07] MEDS ORDERED: Morphine 4 MG/ML VIAL (1 ml) IV PRN (16:21)
[2023-04-07] MEDS ORDERED: Naloxone 0.4 mg VIAL 0.4 mg/ml 1 ml VIAL IV PRN (16:21)
[2023-04-07] MEDS ORDERED: Phenylephrine 40 mcg/mL 10mL (400mcg) SYRINGE ONE (17:13)
[2023-04-07] MEDS ORDERED: Vancomycin 1,000 MG VIAL ONE (17:35)
[2023-04-07] MEDS ORDERED: fentaNYL 100 mcg/2 ml 50 MCG/ML VIAL ONE (18:04)
[2023-04-07] MEDS ORDERED: Midazolam 2 mg/2 ml VIAL 1 mg/ml 2 ml VIAL (2 mg) ONE (18:04)
[2023-04-07] MEDS: Enoxaparin 40 MG/0.4 ML SYR SUBCUT SCH (22:23)
[2023-04-08] MEDS: ceFAZolin VIAL 2 GM in NS 0.9% 100 ml BAG 100 ML IVPB SCH ×3 (05:43→22:02)
[2023-04-08 07:04] LABS: ABS Lymphocytes 0.9 10^3/uL (1.0-4.8); ABS Monocytes 0.7 10^3/uL (0.0-1.1); ABS Neutrophils 5.8 10^3/uL (1.5-7.6); Hematocrit 29.1 % (38-53); Hemoglobin 9.3 g/dL (13.2-16.3); Lymphocyte % 12.4 %; Mean Corpuscular Hemoglobin 27.2 pg (27-33); Mean Corpuscular Volume 84.8 fL (80-97); Platelet Count 300 10^3/uL (150-450); Red Blood Count 3.43 10^6/uL (4.06-5.63); Red Cell Distribution Width 19.7 % (12-17); White Blood Count 7.4 10^3/uL (3.6-10.2)
[2023-04-08] MEDS: Mometasone/Formoter 200/5 MDI INH SCH ×2 (07:32→20:38)
[2023-04-08] MEDS: SPIRIVA Respimat (tiotropium) 2.5 mcg/inh Inhaler INH SCH (07:32)
[2023-04-08 07:35] LABS: Calcium 7.5 mg/dL (8.6-10.3); Creatinine, Serum 0.53 mg/dL (0.67-1.17); Potassium 4.5 mmol/L (3.5-5.0); eGFR CKD-EPI 109.8 (>60)
[2023-04-08] MEDS ORDERED: Polyethylene Glycol 3350 BTL 238 GM BTL PO ONE (09:04)
[2023-04-08] MEDS: Polyethylene Glycol 3350 17 GM PACKET PO SCH ×2 (09:36→21:55)
[2023-04-08] MEDS: Senna TAB 8.6 mg TAB PO SCH ×2 (09:36→21:51)
[2023-04-08 10:00] LABS: C Reactive Protein 199.44 mg/L (<8.01)
[2023-04-08 15:50] LABS: BF PH 6.4
[2023-04-08] MEDS: Enoxaparin 40 MG/0.4 ML SYR SUBCUT SCH (21:53)
[2023-04-09] MEDS: ceFAZolin 2 GM PREMIX 2 GM/50 ML BAG IV SCH ×3 (05:17→20:58)
[2023-04-09 05:56] LABS: ABS Lymphocytes 1.4 10^3/uL (1.0-4.8); ABS Monocytes 1.1 10^3/uL (0.0-1.1); ABS Neutrophils 4.5 10^3/uL (1.5-7.6); ABS Nucleated RBC 0.01 10^3/ul; Eosinophil % 0.3 %; Hemoglobin 9.7 g/dL (13.2-16.3); Lymphocyte % 20.1 %; Mean Corpuscular Hemoglobin 27.6 pg (27-33); Mean Corpuscular Hgb Conc 33.3 g/dL (31-36); Mean Corpuscular Volume 82.9 fL (80-97); Mean Platelet Volume 6.8 fL (7.5-11.2); Nucleated Red Blood Cells % 0.1 /100 WBC (0.0-0.4); Platelet Count 374 10^3/uL (150-450); Red Cell Distribution Width 19.8 % (12-17)
[2023-04-09 06:10] LABS: C Reactive Protein 133.83 mg/L (<8.01); Creatinine, Serum 0.52 mg/dL (0.67-1.17); Magnesium 1.9 mg/dL (1.9-2.7); Potassium 3.8 mmol/L (3.5-5.0); eGFR CKD-EPI 110.5 (>60)
[2023-04-09] MEDS ORDERED: Magnesium Sulfate IV 3 GM in NS 0.9% 100 ml BAG 100 ML IVPB ONE (07:35)
[2023-04-09] MEDS ORDERED: Potassium Chlor 20 meq TAB.ER PO ONE (07:36)
[2023-04-09] MEDS: Mometasone/Formoter 200/5 MDI INH SCH ×2 (07:56→19:41)
[2023-04-09] MEDS: SPIRIVA Respimat (tiotropium) 2.5 mcg/inh Inhaler INH SCH (07:56)
[2023-04-09] MEDS: Polyethylene Glycol 3350 17 GM PACKET PO SCH (08:15)
[2023-04-09] MEDS: Senna TAB 8.6 mg TAB PO SCH ×2 (08:17→21:00)
[2023-04-09] MEDS: Magnesium Hydroxide LIQ 30 ML UDC PO PRN (08:24)
[2023-04-09] MEDS ORDERED: Sodium Phosphate ADULT ENEMA 133 ML BTL PR ONE (09:20)
[2023-04-09] MEDS ORDERED: Polyethylene Glycol 3350 BTL 238 GM BTL PO ONE (09:21)
[2023-04-09] MEDS: Morphine 2 MG/ML SYRINGE IV PRN ×2 (16:11→20:57)
[2023-04-09] MEDS: Polyethylene Glycol 3350 BTL 238 GM BTL PO SCH ×3 (19:34→23:05)
[2023-04-09] MEDS: Enoxaparin 40 MG/0.4 ML SYR SUBCUT SCH (20:59)
[2023-04-10] MEDS: ceFAZolin 2 GM PREMIX 2 GM/50 ML BAG IV SCH ×3 (05:38→21:01)
[2023-04-10 06:13] LABS: ABS Eosinophils 0.1 10^3/uL (0.0-0.5); ABS Lymphocytes 1.8 10^3/uL (1.0-4.8); ABS Monocytes 0.9 10^3/uL (0.0-1.1); ABS Neutrophils 6.3 10^3/uL (1.5-7.6); Eosinophil % 0.8 %; Hematocrit 28.8 % (38-53); Hemoglobin 9.5 g/dL (13.2-16.3); Lymphocyte % 19.9 %; Mean Corpuscular Hemoglobin 27.8 pg (27-33); Mean Corpuscular Hgb Conc 32.9 g/dL (31-36); Mean Corpuscular Volume 84.3 fL (80-97); Mean Platelet Volume 7.1 fL (7.5-11.2); Platelet Count 344 10^3/uL (150-450); Red Blood Count 3.41 10^6/uL (4.06-5.63); Red Cell Distribution Width 19.7 % (12-17); White Blood Count 9.1 10^3/uL (3.6-10.2)
[2023-04-10 06:28] LABS: Creatinine, Serum 0.53 mg/dL (0.67-1.17); Magnesium 2.2 mg/dL (1.9-2.7); Potassium 4.3 mmol/L (3.5-5.0); eGFR CKD-EPI 109.8 (>60)
[2023-04-10] MEDS: SPIRIVA Respimat (tiotropium) 2.5 mcg/inh Inhaler INH SCH (07:13)
[2023-04-10] MEDS: Mometasone/Formoter 200/5 MDI INH SCH ×2 (07:13→19:38)
[2023-04-10] MEDS: Morphine 2 MG/ML SYRINGE IV PRN ×3 (10:46→20:48)
[2023-04-10] MEDS: Senna TAB 8.6 mg TAB PO SCH ×2 (10:47→21:04)
[2023-04-10 14:22] LABS: Fluid Type: LEFT HIP FLUID; Triglycerides (BF) 31 mg/dL
[2023-04-10] MEDS: Enoxaparin 40 MG/0.4 ML SYR SUBCUT SCH (21:10)
[2023-04-11] MEDS: Morphine 2 MG/ML SYRINGE IV PRN ×4 (05:21→21:00)
[2023-04-11] MEDS: ceFAZolin 2 GM PREMIX 2 GM/50 ML BAG IV SCH ×3 (05:21→20:02)
[2023-04-11 06:51] LABS: Hematocrit 31.9 % (38-53); Hemoglobin 10.1 g/dL (13.2-16.3); Mean Corpuscular Hemoglobin 26.8 pg (27-33); Mean Corpuscular Hgb Conc 31.8 g/dL (31-36); Mean Corpuscular Volume 84.3 fL (80-97); Mean Platelet Volume 6.9 fL (7.5-11.2); Platelet Count 443 10^3/uL (150-450); Red Blood Count 3.79 10^6/uL (4.06-5.63); Red Cell Distribution Width 19.6 % (12-17); White Blood Count 12.2 10^3/uL (3.6-10.2)
[2023-04-11] MEDS: Mometasone/Formoter 200/5 MDI INH SCH ×2 (06:55→20:29)
[2023-04-11] MEDS: SPIRIVA Respimat (tiotropium) 2.5 mcg/inh Inhaler INH SCH ×2 (06:55→06:59)
[2023-04-11 07:10] LABS: Creatinine, Serum 0.62 mg/dL (0.67-1.17); Magnesium 1.9 mg/dL (1.9-2.7); Potassium 4.6 mmol/L (3.5-5.0); eGFR CKD-EPI 104.8 (>60)
[2023-04-11] MEDS: Senna TAB 8.6 mg TAB PO SCH ×2 (08:44→20:02)
[2023-04-11] MEDS ORDERED: Nicotine Lozenge mini 4 MG LOZNG.MINI MT PRN (13:13)
[2023-04-11 14:41] LABS: Glucose, BF 5 mg/dL; Total Protein, BF 4.4 g/dL
[2023-04-11] MEDS: Enoxaparin 40 MG/0.4 ML SYR SUBCUT SCH (21:23)
[2023-04-12] MEDS: Morphine 2 MG/ML SYRINGE IV PRN ×3 (01:33→11:22)
[2023-04-12] MEDS: ceFAZolin 2 GM PREMIX 2 GM/50 ML BAG IV SCH (04:38)
[2023-04-12 06:53] LABS: ABS Lymphocytes 1.8 10^3/uL (1.0-4.8); ABS Monocytes 0.8 10^3/uL (0.0-1.1); ABS Neutrophils 16.7 10^3/uL (1.5-7.6); ABS Nucleated RBC 0.01 10^3/ul; Hematocrit 35.4 % (38-53); Hemoglobin 11.2 g/dL (13.2-16.3); Lymphocyte % 9.3 %; Mean Corpuscular Hemoglobin 26.5 pg (27-33); Mean Corpuscular Hgb Conc 31.5 g/dL (31-36); Mean Corpuscular Volume 84.1 fL (80-97); Mean Platelet Volume 7.2 fL (7.5-11.2); Platelet Count 615 10^3/uL (150-450); Red Blood Count 4.21 10^6/uL (4.06-5.63); Red Cell Distribution Width 19.4 % (12-17); White Blood Count 19.2 10^3/uL (3.6-10.2)
[2023-04-12 07:12] LABS: Calcium 8.6 mg/dL (8.6-10.3); Creatinine, Serum 1.17 mg/dL (0.67-1.17); Potassium 5.2 mmol/L (3.5-5.0); eGFR CKD-EPI 68.3 (>60)
[2023-04-12] MEDS: Mometasone/Formoter 200/5 MDI INH SCH ×2 (07:49→19:06)
[2023-04-12] MEDS: SPIRIVA Respimat (tiotropium) 2.5 mcg/inh Inhaler INH SCH (07:49)
[2023-04-12] MEDS ORDERED: Dextrose 50% Syringe 50 ml 25 GM/50 ML SYRINGE ONE ×2 (07:51→08:41)
[2023-04-12] MEDS ORDERED: Lactated Ringers 1000 ml BAG 1,000 ML IV ONE (08:17)
[2023-04-12] MEDS ORDERED: Vancomycin 1,250 MG in NS 0.9% 250 ml 250 ML IVPB ONE (08:30)
[2023-04-12] MEDS ORDERED: Dextrose 50% Syringe 50 ml 25 GM/50 ML SYRINGE IV PUSH PRN (08:43)
[2023-04-12] MEDS ORDERED: Piperacillin/Tazobac 3.375 BAG 3.375 GM/100 ML BAG IV ONE (08:53)
[2023-04-12] MEDS ORDERED: Haloperidol 5 mg/ml SDV IV/IM 5 MG/ML AMP IV SLOW PU ONE (08:59)
[2023-04-12] MEDS ORDERED: Haloperidol 5 mg/ml SDV IV/IM 5 MG/ML AMP ONE (08:59)
[2023-04-12] MEDS ORDERED: Zosyn per Pharmacy NOTE FOLLOW UP SCH (09:00)
[2023-04-12] MEDS ORDERED: Acetaminophen IV 1 GM/100ML 1,000 MG/100 ML BAG IV PRN (10:35)
[2023-04-12] MEDS: Dexmedetomidine 1,000 MCG in NS 0.9% 250 ml 240 ML IV SCH (11:00)
[2023-04-12 11:49] LABS: High Sensitivity Troponin 1 Hr 49 pg/mL (<20)
[2023-04-12] MEDS ORDERED: Ondansetron ODT 4 mg TAB 4 MG TAB SL PRN (12:07)
[2023-04-12] MEDS ORDERED: Atropine 1% OPHTH.SOL 1 DROP BTL 2-5 ML SL PRN (12:07)
[2023-04-12] MEDS ORDERED: Morphine ORAL CONCENTRATE 5 MG/0.25 ML ORAL.SYRIN SL PRN (12:07)
[2023-04-12] MEDS: Senna TAB 8.6 mg TAB PO SCH ×2 (12:18→20:00)
[2023-04-12 12:44] VITALS: BP 92/58
[2023-04-12] MEDS ORDERED: Scopolamine 1 mg/72hr PATCH TRANSDERM SCH (13:00)
[2023-04-12] MEDS: LORazepam 2 mg VIAL 1 ml IV PUSH PRN ×3 (13:03→22:50)
[2023-04-12] MEDS ORDERED: ZOSYN 3.375 GM Q8H per EXTENDED INFUSION IV SCH (13:30)
[2023-04-13] MEDS: LORazepam 2 mg VIAL 1 ml IV PUSH PRN (05:27)
[2023-04-13] MEDS: Dexmedetomidine 1,000 MCG in NS 0.9% 250 ml 240 ML IV SCH (07:21)
[2023-04-13] MEDS: SPIRIVA Respimat (tiotropium) 2.5 mcg/inh Inhaler INH SCH (07:32)
[2023-04-13] MEDS: Mometasone/Formoter 200/5 MDI INH SCH (07:32)
[2023-04-13] MEDS: Senna TAB 8.6 mg TAB PO SCH (07:56)
[2023-04-13] MEDS ORDERED: HYDROmorphone PCA 20 MG/20 ML PCA.SYRING PCA SCH (10:00)
== END 2023-04-13 15:49 | disposition expired | DRG 853 ==
LOC: ED 15:59 → SUATTDRO 04-04 00:47 → EDHOLD 04-04 00:47 → SSU 04-04 08:36 → MEDTELE 04-09 11:11 → ICU 04-12 09:13
PROVIDERS: ADMIT Internal Medicine; ATTEND Student in an Organized Health Care Education/Training Program